=== PATIENT | male | born 1950 | race Caucasian/White ===

== ENCOUNTER 2018-05-30 15:47 | Inpatient (IN) | payer MEDICARE, OTHER ==
[~2018-05-30] VITALS: Ht 177.8 cm; Wt 127.0 kg
[~2018-05-30 15:47] MED LIST: ALLO100T PO; APIX2.5T PO; ASPI-611 PO; ATOR20TA PO; CARB15DR95 OP; CLOP75TA35 PO; CYCL-1 PO; FINA1TAB17 PO; HYDR4TAB55 PO; KETO5DRO75 OP; LEVO100T9 PO; LOSA25TA96 PO; METO25TA6 PO; MORP30TA60 PO; NITR0.4T51 SL; NITR1PAT28 TD; RANI300T7 PO; TERA1CAP4 PO; [UNRECOGNIZED DRUG - CODE] TOP; morphine ER 30mg tablet PO ONE
[2018-05-30] MEDS ORDERED: LORazepam 2 mg/ml vial ONE (16:07)
[2018-05-30 16:23] LABS: BASOPHILS % (AUTO) 0.6 % (0-1); EOSINOPHILS # (AUTO) 0.1 X10'3 (0-0.9); EOSINOPHILS % (AUTO) 1.2 % (0-6); HEMATOCRIT 31.7 % (42.0-52.0); HEMOGLOBIN 10.7 g/dl (14.0-17.9); LYMPHOCYTES # (AUTO) 0.9 X10'3 (1.1-4.8); LYMPHOCYTES % (AUTO) 15.1 % (21-51); MEAN CORPUSCULAR HGB CONC 33.9 % (33.0-36.5); MEAN CORPUSCULAR VOLUME 91.6 FL (78-98); MEAN PLATELET VOLUME 8.2 FL (7.4-10.4); MONOCYTES # (AUTO) 0.3 X10'3 (0-0.9); MONOCYTES % (AUTO) 6.1 % (2-12); NEUTROPHILS # (AUTO) 4.4 X10'3 (1.8-7.7); PLATELET COUNT 155 X10'3 (140-440); RED BLOOD COUNT 3.46 X10'6 (4.70-6.10); RED CELL DISTRIBUTION WIDTH 17.5 % (11.5-14.5); WHITE BLOOD COUNT 5.7 X10'3 (4.5-11.0)
[2018-05-30 16:33] LABS: PARTIAL THROMBOPLASTIN TIME 27 SECONDS (22-32); PROTHROMBIN TIME 10.2 SECONDS (9.0-12.0)
[2018-05-30] MEDS ORDERED: iohexol 350MG/ML 100ml bottle IV ONE (16:34)
[2018-05-30 16:38] LABS: ALANINE AMINOTRANSFERASE 23 U/L (12-78); ALBUMIN 3.9 G/DL (3.4-5.0); ALKALINE PHOSPHATASE 104 IU/L (46-116); ANION GAP 7 (8-16); ASPARTATE AMINO TRANSFERASE 38 U/L (10-37); BLOOD UREA NITROGEN 18 MG/DL (7-18); BUN/CREATININE RATIO 15.5 (5.4-32.0); CALCIUM 9.1 MG/DL (8.5-10.1); CHLORIDE 101 MMOL/L (99-107); CREATININE 1.16 MG/DL (0.60-1.10); GLUCOSE 108 MG/DL (70-104); POTASSIUM 4.5 MMOL/L (3.5-5.1); SODIUM 136 MMOL/L (135-145); TOTAL CARBON DIOXIDE 28.4 MMOL/L (24-32); TOTAL PROTEIN 7.8 G/DL (6.4-8.2); eGFR 63 ML/MIN
[2018-05-30 16:41] LABS: TROPONIN I < 0.04 NG/ML (0.0-0.05)
[2018-05-30] MEDS ORDERED: iohexol 350 MG/ML 50ML vial IV ONE (16:41)
[2018-05-30] MEDS ORDERED: fentaNYL/PF 50MCG/1 ML 2ML syringe IV ONE ×2 (16:55→19:25)
[2018-05-30 18:25] LABS: CLARITY,URINE Clear (Clear); COLOR,URINE Yellow (Yellow); GLUCOSE, URINE Negative (Neg); KETONES,URINE Negative (Neg); LEUKOCYTE ESTERASE ,URINE Negative (Neg); NITRITES, URINE Negative (Neg); OCCULT BLOOD,URINE Negative (Neg); PROTEIN,URINE Negative (Neg)
[2018-05-30 18:28] LABS: UA COLLECTION TYPE URINAL
[2018-05-30] MEDS ORDERED: bisacodyl 10mg suppository rectal RC PRN (19:50)
[2018-05-30] MEDS ORDERED: magnesium hydroxide 30ml (MOM) UD suspension PO PRN (19:50)
[2018-05-30] MEDS ORDERED: ASPI-1264 PO (19:58)
[2018-05-30] MEDS ORDERED: LEVO175T2 PO (19:58)
[2018-05-30] MEDS ORDERED: CLOP75TA33 PO (19:58)
[2018-05-30] MEDS: docusate sod 100mg capsule PO SCH (20:27)
[2018-05-30] MEDS: famotidine 20mg tablet PO SCH (20:27)
[2018-05-30] MEDS: heparin, porcine 5000 units/ml vial SQ SCH (20:28)
[2018-05-30 23:40] VITALS: BP 193/97
[2018-05-31] MEDS: terazosin 5mg capsule PO SCH ×2 (00:18→20:39)
[2018-05-31] MEDS: morphine ER 30mg tablet PO SCH ×4 (01:22→20:07)
[2018-05-31 02:31] VITALS: BP 143/83
[2018-05-31 05:16] LABS: BASOPHILS % (AUTO) 0.5 % (0-1); EOSINOPHILS # (AUTO) 0.1 X10'3 (0-0.9); EOSINOPHILS % (AUTO) 1.8 % (0-6); HEMATOCRIT 30.4 % (42.0-52.0); HEMOGLOBIN 10.2 g/dl (14.0-17.9); LYMPHOCYTES # (AUTO) 0.9 X10'3 (1.1-4.8); LYMPHOCYTES % (AUTO) 18.9 % (21-51); MEAN CORPUSCULAR HEMOGLOBIN 30.7 PG (27.0-31.0); MEAN CORPUSCULAR HGB CONC 33.6 % (33.0-36.5); MEAN CORPUSCULAR VOLUME 91.3 FL (78-98); MEAN PLATELET VOLUME 8.1 FL (7.4-10.4); MONOCYTES # (AUTO) 0.3 X10'3 (0-0.9); MONOCYTES % (AUTO) 6.9 % (2-12); NEUTROPHILS # (AUTO) 3.4 X10'3 (1.8-7.7); NEUTROPHILS % (AUTO) 71.9 % (42-75); PLATELET COUNT 150 X10'3 (140-440); RED BLOOD COUNT 3.33 X10'6 (4.70-6.10); RED CELL DISTRIBUTION WIDTH 17.5 % (11.5-14.5); WHITE BLOOD COUNT 4.7 X10'3 (4.5-11.0)
[2018-05-31 05:32] LABS: ALANINE AMINOTRANSFERASE 24 U/L (12-78); ALBUMIN 3.6 G/DL (3.4-5.0); ALKALINE PHOSPHATASE 98 IU/L (46-116); ANION GAP 7 (8-16); ASPARTATE AMINO TRANSFERASE 37 U/L (10-37); BILIRUBIN,TOTAL 0.9 MG/DL (0.1-1.0); BLOOD UREA NITROGEN 17 MG/DL (7-18); BUN/CREATININE RATIO 14.7 (5.4-32.0); CALCIUM 8.9 MG/DL (8.5-10.1); CHLORIDE 101 MMOL/L (99-107); CREATININE 1.16 MG/DL (0.60-1.10); GLUCOSE 109 MG/DL (70-104); POTASSIUM 4.3 MMOL/L (3.5-5.1); SODIUM 137 MMOL/L (135-145); TOTAL PROTEIN 7.3 G/DL (6.4-8.2); eGFR 63 ML/MIN
[2018-05-31 07:06] VITALS: BP 137/92
[2018-05-31] MEDS: aspirin 325mg tablet PO SCH (08:01)
[2018-05-31] MEDS: losartan 25mg tablet PO SCH (08:01)
[2018-05-31] MEDS: levoTHYROXINE 175mcg tablet PO SCH (08:01)
[2018-05-31] MEDS: heparin, porcine 5000 units/ml vial SQ SCH ×2 (08:01→20:07)
[2018-05-31] MEDS: docusate sod 100mg capsule PO SCH ×2 (08:01→20:07)
[2018-05-31] MEDS: clopidogrel 75mg tablet PO SCH (08:01)
[2018-05-31] MEDS: finasteride 5mg tablet PO SCH (08:01)
[2018-05-31] MEDS: metoprolol tartrate 25mg tablet PO SCH ×2 (08:01→20:07)
[2018-05-31] MEDS ORDERED: HYDR8TAB16 PO (10:53)
[2018-05-31] MEDS: HYDROmorphone 2mg tablet PO PRN ×2 (10:57→18:56)
[2018-05-31 11:57] VITALS: BP 139/71
[2018-05-31 18:00] VITALS: BP 138/66
[2018-05-31] MEDS: famotidine 20mg tablet PO SCH (20:40)
[2018-05-31 22:00] VITALS: BP 140/70
[2018-06-01] MEDS: morphine ER 30mg tablet PO SCH ×4 (02:00→20:29)
[2018-06-01 02:22] VITALS: BP 147/77
[2018-06-01] MEDS: HYDROmorphone 2mg tablet PO PRN ×3 (04:01→18:55)
[2018-06-01 05:40] LABS: BASOPHILS % (AUTO) 0.7 % (0-1); EOSINOPHILS # (AUTO) 0.1 X10'3 (0-0.9); EOSINOPHILS % (AUTO) 1.9 % (0-6); HEMATOCRIT 28.6 % (42.0-52.0); HEMOGLOBIN 9.6 g/dl (14.0-17.9); LYMPHOCYTES # (AUTO) 0.9 X10'3 (1.1-4.8); MEAN CORPUSCULAR HEMOGLOBIN 30.7 PG (27.0-31.0); MEAN CORPUSCULAR HGB CONC 33.7 % (33.0-36.5); MEAN CORPUSCULAR VOLUME 91.1 FL (78-98); MEAN PLATELET VOLUME 7.8 FL (7.4-10.4); MONOCYTES # (AUTO) 0.3 X10'3 (0-0.9); MONOCYTES % (AUTO) 7.1 % (2-12); NEUTROPHILS % (AUTO) 70.3 % (42-75); PLATELET COUNT 137 X10'3 (140-440); RED BLOOD COUNT 3.14 X10'6 (4.70-6.10); WHITE BLOOD COUNT 4.3 X10'3 (4.5-11.0)
[2018-06-01 05:58] LABS: ALANINE AMINOTRANSFERASE 24 U/L (12-78); ALBUMIN 3.4 G/DL (3.4-5.0); ALKALINE PHOSPHATASE 94 IU/L (46-116); ANION GAP 5 (8-16); ASPARTATE AMINO TRANSFERASE 38 U/L (10-37); BILIRUBIN,TOTAL 0.6 MG/DL (0.1-1.0); BLOOD UREA NITROGEN 16 MG/DL (7-18); CALCIUM 8.6 MG/DL (8.5-10.1); CHLORIDE 101 MMOL/L (99-107); CREATININE 1.07 MG/DL (0.60-1.10); GLUCOSE 106 MG/DL (70-104); POTASSIUM 4.4 MMOL/L (3.5-5.1); SODIUM 135 MMOL/L (135-145); TOTAL CARBON DIOXIDE 29.2 MMOL/L (24-32); TOTAL PROTEIN 6.8 G/DL (6.4-8.2); eGFR 69 ML/MIN
[2018-06-01 06:00] VITALS: BP 125/68
[2018-06-01] MEDS: clopidogrel 75mg tablet PO SCH (08:20)
[2018-06-01] MEDS: finasteride 5mg tablet PO SCH (08:20)
[2018-06-01] MEDS: docusate sod 100mg capsule PO SCH ×2 (08:20→20:29)
[2018-06-01] MEDS: levoTHYROXINE 175mcg tablet PO SCH (08:20)
[2018-06-01] MEDS: aspirin 325mg tablet PO SCH (08:20)
[2018-06-01] MEDS: losartan 25mg tablet PO SCH (08:21)
[2018-06-01] MEDS: metoprolol tartrate 25mg tablet PO SCH ×2 (08:21→20:29)
[2018-06-01] MEDS: heparin, porcine 5000 units/ml vial SQ SCH (08:21)
[2018-06-01 09:50] VITALS: BP 161/88
[2018-06-01 10:44] VITALS: BP 140/84
[2018-06-01] MEDS ORDERED: bisacodyl 10mg suppository rectal RC PRN (12:15)
[2018-06-01] MEDS ORDERED: nitroGLYCERIN 0.4mg SUBLingual tab SL PRN (12:25)
[2018-06-01] MEDS ORDERED: apixaban 5mg tablet PO SCH (12:30)
[2018-06-01 13:27] LABS: CHOL/HDL RATIO 4.8 (0.00-4.99); CHOLESTEROL 115 MG/DL (0-200); HDL CHOLESTEROL 24 MG/DL (35-60); LDL CHOLESTEROL 64 MG/DL (50-100); TRIGLYCERIDES 192 MG/DL (20-135)
[2018-06-01 18:00] VITALS: BP 131/77
[2018-06-01] MEDS: apixaban 5mg tablet PO SCH (20:29)
[2018-06-01] MEDS: terazosin 5mg capsule PO SCH (20:29)
[2018-06-01] MEDS: atorvastatin 20mg tablet PO SCH (20:29)
[2018-06-01] MEDS: famotidine 20mg tablet PO SCH (20:30)
[2018-06-01 22:00] VITALS: BP 175/96
[2018-06-01] MEDS ORDERED: proCHLORperazine 10 MG/2 ml inj IV PRN (22:50)
[2018-06-02] MEDS: morphine ER 30mg tablet PO SCH ×4 (01:53→20:26)
[2018-06-02] MEDS: HYDROmorphone 2mg tablet PO PRN ×4 (04:06→21:56)
[2018-06-02 06:00] VITALS: BP 114/65
[2018-06-02 06:55] LABS: BASOPHILS % (AUTO) 0.6 % (0-1); EOSINOPHILS # (AUTO) 0.1 X10'3 (0-0.9); EOSINOPHILS % (AUTO) 1.9 % (0-6); HEMOGLOBIN 11.2 g/dl (14.0-17.9); LYMPHOCYTES # (AUTO) 0.9 X10'3 (1.1-4.8); LYMPHOCYTES % (AUTO) 14.8 % (21-51); MEAN CORPUSCULAR HEMOGLOBIN 30.8 PG (27.0-31.0); MEAN CORPUSCULAR VOLUME 90.7 FL (78-98); MEAN PLATELET VOLUME 8.1 FL (7.4-10.4); MONOCYTES # (AUTO) 0.4 X10'3 (0-0.9); MONOCYTES % (AUTO) 7.3 % (2-12); NEUTROPHILS # (AUTO) 4.4 X10'3 (1.8-7.7); NEUTROPHILS % (AUTO) 75.4 % (42-75); PLATELET COUNT 150 X10'3 (140-440); RED BLOOD COUNT 3.64 X10'6 (4.70-6.10); RED CELL DISTRIBUTION WIDTH 17.1 % (11.5-14.5); WHITE BLOOD COUNT 5.8 X10'3 (4.5-11.0)
[2018-06-02 07:07] LABS: ALANINE AMINOTRANSFERASE 26 U/L (12-78); ALBUMIN 3.8 G/DL (3.4-5.0); ALKALINE PHOSPHATASE 103 IU/L (46-116); ANION GAP 4 (8-16); ASPARTATE AMINO TRANSFERASE 34 U/L (10-37); BILIRUBIN,TOTAL 0.8 MG/DL (0.1-1.0); BLOOD UREA NITROGEN 14 MG/DL (7-18); BUN/CREATININE RATIO 12.3 (5.4-32.0); CALCIUM 8.9 MG/DL (8.5-10.1); CHLORIDE 100 MMOL/L (99-107); CREATININE 1.14 MG/DL (0.60-1.10); GLUCOSE 98 MG/DL (70-104); SODIUM 134 MMOL/L (135-145); TOTAL CARBON DIOXIDE 29.8 MMOL/L (24-32); TOTAL PROTEIN 7.6 G/DL (6.4-8.2); eGFR 64 ML/MIN
[2018-06-02] MEDS: docusate sod 100mg capsule PO SCH ×2 (07:58→20:26)
[2018-06-02] MEDS: losartan 25mg tablet PO SCH (07:59)
[2018-06-02] MEDS: metoprolol tartrate 25mg tablet PO SCH (07:59)
[2018-06-02] MEDS: levoTHYROXINE 175mcg tablet PO SCH (07:59)
[2018-06-02] MEDS: apixaban 5mg tablet PO SCH ×2 (07:59→20:26)
[2018-06-02] MEDS: finasteride 5mg tablet PO SCH (07:59)
[2018-06-02] MEDS: clopidogrel 75mg tablet PO SCH (07:59)
[2018-06-02 10:00] VITALS: BP 173/70
[2018-06-02 12:12] LABS: HEMOGLOBIN A1C 5.2 % (4.5-6.2)
[2018-06-02 18:00] VITALS: BP 148/66
[2018-06-02] MEDS: terazosin 5mg capsule PO SCH (20:26)
[2018-06-02] MEDS: famotidine 20mg tablet PO SCH (20:26)
[2018-06-02] MEDS: atorvastatin 20mg tablet PO SCH (20:26)
[2018-06-02 22:00] VITALS: BP 154/78
[2018-06-03] MEDS: morphine ER 30mg tablet PO SCH ×3 (01:43→13:59)
[2018-06-03] MEDS: HYDROmorphone 2mg tablet PO PRN ×2 (04:02→10:40)
[2018-06-03 05:43] LABS: BASOPHILS % (AUTO) 0.7 % (0-1); EOSINOPHILS # (AUTO) 0.1 X10'3 (0-0.9); EOSINOPHILS % (AUTO) 2.4 % (0-6); HEMATOCRIT 29.9 % (42.0-52.0); LYMPHOCYTES # (AUTO) 0.8 X10'3 (1.1-4.8); MEAN CORPUSCULAR HEMOGLOBIN 30.6 PG (27.0-31.0); MEAN CORPUSCULAR HGB CONC 33.5 % (33.0-36.5); MEAN CORPUSCULAR VOLUME 91.6 FL (78-98); MEAN PLATELET VOLUME 8.7 FL (7.4-10.4); MONOCYTES # (AUTO) 0.3 X10'3 (0-0.9); MONOCYTES % (AUTO) 6.8 % (2-12); NEUTROPHILS # (AUTO) 3.3 X10'3 (1.8-7.7); NEUTROPHILS % (AUTO) 73.1 % (42-75); PLATELET COUNT 139 X10'3 (140-440); RED BLOOD COUNT 3.26 X10'6 (4.70-6.10); RED CELL DISTRIBUTION WIDTH 16.8 % (11.5-14.5); WHITE BLOOD COUNT 4.6 X10'3 (4.5-11.0)
[2018-06-03 06:00] VITALS: BP 140/72
[2018-06-03 06:07] LABS: ALANINE AMINOTRANSFERASE 22 U/L (12-78); ALBUMIN 3.4 G/DL (3.4-5.0); ALBUMIN/GLOBULIN RATIO 0.9 (1.1-1.5); ALKALINE PHOSPHATASE 100 IU/L (46-116); ANION GAP 4 (8-16); ASPARTATE AMINO TRANSFERASE 32 U/L (10-37); BILIRUBIN,TOTAL 0.6 MG/DL (0.1-1.0); BLOOD UREA NITROGEN 14 MG/DL (7-18); CALCIUM 8.6 MG/DL (8.5-10.1); CHLORIDE 101 MMOL/L (99-107); CREATININE 1.17 MG/DL (0.60-1.10); GLUCOSE 105 MG/DL (70-104); POTASSIUM 3.9 MMOL/L (3.5-5.1); SODIUM 136 MMOL/L (135-145); TOTAL CARBON DIOXIDE 30.8 MMOL/L (24-32); TOTAL PROTEIN 7.1 G/DL (6.4-8.2); eGFR 62 ML/MIN
[2018-06-03] MEDS ORDERED: levoTHYROXINE 100mcg tablet PO SCH (07:00)
[2018-06-03] MEDS: losartan 25mg tablet PO SCH (07:56)
[2018-06-03] MEDS: apixaban 5mg tablet PO SCH (07:56)
[2018-06-03] MEDS: docusate sod 100mg capsule PO SCH (07:56)
[2018-06-03] MEDS: clopidogrel 75mg tablet PO SCH (07:57)
[2018-06-03] MEDS: finasteride 5mg tablet PO SCH (07:57)
[2018-06-03 10:00] VITALS: BP 120/52
[2018-06-03] MEDS ORDERED: metoprolol succinate 25mg (24-HOUR) SR. Tablet PO SCH (14:25)
== END 2018-06-03 17:39 | disposition left against medical advice (07) | DRG 683 ==
LOC: ER 15:47 → ED HOLD 19:47 → EDBEDREQ 20:58 → ORTHO 4S 23:15
PROVIDERS: ADMIT Internal Medicine; ATTEND Family Medicine
PROC: B3251ZZ Computerized Tomography (CT Scan) of Bilateral Common Carotid Arteries using Low Osmolar Contrast (ICD-10-PCS; principal; 2018-05-30)
PROC: B32G1ZZ Computerized Tomography (CT Scan) of Bilateral Vertebral Arteries using Low Osmolar Contrast (ICD-10-PCS; 2018-05-30)
PROC: B3281ZZ Computerized Tomography (CT Scan) of Bilateral Internal Carotid Arteries using Low Osmolar Contrast (ICD-10-PCS; 2018-05-30)
PROC: B32T1ZZ Computerized Tomography (CT Scan) of Left Pulmonary Artery using Low Osmolar Contrast (ICD-10-PCS; 2018-05-30)
PROC: B3201ZZ Computerized Tomography (CT Scan) of Thoracic Aorta using Low Osmolar Contrast (ICD-10-PCS; 2018-05-30)
PROC: B32S1ZZ Computerized Tomography (CT Scan) of Right Pulmonary Artery using Low Osmolar Contrast (ICD-10-PCS; 2018-05-30)
PROC: 4A10X4Z Monitoring of Central Nervous Electrical Activity, External Approach (ICD-10-PCS; 2018-05-31)
DX: N17.9 Acute kidney failure, unspecified (principal); Z68.41 Body mass index [BMI] 40.0-44.9, adult; R47.01 Aphasia; F44.4 Conversion disorder with motor symptom or deficit; I49.9 Cardiac arrhythmia, unspecified; E03.9 Hypothyroidism, unspecified; F41.1 Generalized anxiety disorder; E66.01 Morbid (severe) obesity due to excess calories; Z53.21 Procedure and treatment not carried out due to patient leaving prior to being seen by health care provider; F40.240 Claustrophobia; F43.10 Post-traumatic stress disorder, unspecified; M19.90 Unspecified osteoarthritis, unspecified site; N18.9 Chronic kidney disease, unspecified; I12.9 Hypertensive chronic kidney disease with stage 1 through stage 4 chronic kidney disease, or unspecified chronic kidney disease; R47.9 Unspecified speech disturbances; E16.2 Hypoglycemia, unspecified; I48.0 Paroxysmal atrial fibrillation; M54.9 Dorsalgia, unspecified; G89.29 Other chronic pain; Z76.5 Malingerer [conscious simulation]; I25.2 Old myocardial infarction; Z79.01 Long term (current) use of anticoagulants; Z79.899 Other long term (current) drug therapy; Z79.82 Long term (current) use of aspirin; Z86.73 Personal history of transient ischemic attack (TIA), and cerebral infarction without residual deficits; Z87.891 Personal history of nicotine dependence
CPT/HCPCS: 36415; 70450; 70496; 70498; 71045; 71275; 74174; 80053; 80061; 81003; 82948; 83036; 84443; 84484; 84550; 85025; 85610; 85730; 87070; 93005; 95816; 96374; 96376; 97116; 97161; 97530; 99285; J0780; J1644; J2060; J3010; J7030; Q9967

== ENCOUNTER 2019-03-04 14:58 | Emergency (ER) | payer MEDICARE, OTHER ==
[~2019-03-04] VITALS: Ht 180.3 cm; Wt 129.1 kg
[~2019-03-04 14:58] MED LIST changes: +ASPI-1264 PO; -ASPI-611 PO; +CLOP75TA33 PO; -CLOP75TA35 PO; +HYDR8TAB16 PO; -LEVO100T9 PO; +LEVO175T2 PO; -morphine ER 30mg tablet PO ONE
[2019-03-04] MEDS ORDERED: normal saline 1000ml 1,000 ML IV ONE (15:44)
[2019-03-04] MEDS ORDERED: meperidine/PF 50mg/ml syringe IV ONE ×2 (15:50→17:20)
[2019-03-04] MEDS ORDERED: ketorolac tromethamine 15mg/ml inj. IV ONE (15:50)
[2019-03-04 16:06] LABS: BASOPHILS % (AUTO) 0.9 % (0-1); EOSINOPHILS # (AUTO) 0.1 X10'3 (0-0.9); EOSINOPHILS % (AUTO) 1.2 % (0-6); HEMATOCRIT 35.4 % (42.0-52.0); HEMOGLOBIN 11.9 g/dl (14.0-17.9); LYMPHOCYTES # (AUTO) 0.7 X10'3 (1.1-4.8); LYMPHOCYTES % (AUTO) 13.3 % (21-51); MEAN CORPUSCULAR HGB CONC 33.5 g/dL (33.0-36.5); MEAN CORPUSCULAR VOLUME 92.6 FL (78-98); MEAN PLATELET VOLUME 8.9 FL (7.4-10.4); MONOCYTES # (AUTO) 0.4 X10'3 (0-0.9); MONOCYTES % (AUTO) 7.3 % (2-12); NEUTROPHILS # (AUTO) 3.8 X10'3 (1.8-7.7); NEUTROPHILS % (AUTO) 77.3 % (42-75); PLATELET COUNT 167 X10'3 (140-440); RED BLOOD COUNT 3.82 X10'6 (4.70-6.10); RED CELL DISTRIBUTION WIDTH 17.6 % (11.5-14.5); WHITE BLOOD COUNT 4.9 X10'3 (4.5-11.0)
[2019-03-04 16:22] LABS: ALANINE AMINOTRANSFERASE 46 U/L (12-78); ALKALINE PHOSPHATASE 108 IU/L (46-116); ANION GAP 6 (8-16); ASPARTATE AMINO TRANSFERASE 45 U/L (10-37); BILIRUBIN,TOTAL 0.6 MG/DL (0.1-1.0); BLOOD UREA NITROGEN 12 MG/DL (7-18); BUN/CREATININE RATIO 11.4 (5.4-32.0); CALCIUM 9.3 MG/DL (8.5-10.1); CHLORIDE 102 MMOL/L (99-107); CREATININE 1.05 MG/DL (0.60-1.10); GLUCOSE 132 MG/DL (70-104); LIPASE 96 U/L (73-393); POTASSIUM 4.4 MMOL/L (3.5-5.1); SODIUM 138 MMOL/L (135-145); TOTAL CARBON DIOXIDE 29.9 MMOL/L (24-32); eGFR 70 ML/MIN
[2019-03-04 16:43] LABS: PARTIAL THROMBOPLASTIN TIME 31 SECONDS (22-32)
[2019-03-04 17:09] LABS: CLARITY,URINE CLEAR (Clear); COLOR,URINE YELLOW (Yellow); GLUCOSE, URINE NEGATIVE (Neg); KETONES,URINE NEGATIVE (Neg); LEUKOCYTE ESTERASE ,URINE NEGATIVE (Neg); NITRITES, URINE NEGATIVE (Neg); OCCULT BLOOD,URINE MODERATE (Neg); PH,URINE 7.5 (4.8-8.0); PROTEIN,URINE TRACE mg/dl (Neg)
[2019-03-04 17:14] LABS: UA COLLECTION TYPE URINAL; WBC,URINE NONE SEEN /HPF (0-4)
[2019-03-04 17:15] LABS: BACTERIA,URINE NONE SEEN /HPF (Neg); MUCUS STRANDS NONE SEEN /LPF (Neg); SQUAMOUS EPITHELIAL CELL,UR FEW /LPF (FEW)
[2019-03-04] MEDS ORDERED: ondansetron/PF 4mg/2ml inj IM ONE (17:30)
[2019-03-04] MEDS ORDERED: HYDR-4353 PO (19:13)
[2019-03-04] MEDS ORDERED: FLO0.4C PO (19:13)
[2019-03-04] MEDS ORDERED: HYDROmorphone 2mg tablet PO ONE (19:15)
[2019-03-04 19:22] VITALS: BP 147/90
== END 2019-03-04 19:41 | disposition home or self-care (01) ==
LOC: ER 14:58
DX: N23 Unspecified renal colic (principal); I48.91 Unspecified atrial fibrillation; I25.2 Old myocardial infarction; G89.29 Other chronic pain; Z86.73 Personal history of transient ischemic attack (TIA), and cerebral infarction without residual deficits; Z98.61 Coronary angioplasty status; Z79.82 Long term (current) use of aspirin; Z79.899 Other long term (current) drug therapy
CPT/HCPCS: 36415; 74018; 74176; 80053; 81001; 83690; 83735; 85025; 85610; 85730; 96372; 96374; 96375; 96376; 99284; J1885; J2175; J2405; J7030

== ENCOUNTER 2019-07-10 17:41 | Inpatient (IN) | payer MEDICARE, OTHER ==
[~2019-07-10] VITALS: Ht 180.3 cm; Wt 136.4 kg
--- NOTE | 2019-07-10 10:58 | NUR ---
called for new onset of aphasia. Upon my arrival Dr Briones was at bedside. AT [address] Briones pt was his normal self. Currently he is exhibiting dysarthria. 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 Admission in 2017 and 2018 for stroke work up is noted. Pt is currently on full ASA and Plavix. Pt able to state name and age, month of year, feels irritated with questions. Observed moving upper ext equally, Both lower ext with 4+ edema. Pt taken to CT 2215 via lio.
[2019-07-10] MEDS ORDERED: aspirin 81mg tab.chew PO ONE (18:05)
[2019-07-10] MEDS ORDERED: ondansetron/PF 4mg/2ml inj IV ONE (18:15)
[2019-07-10] MEDS ORDERED: morphine 4 MG/ML inj SYRINge IV ONE (18:15)
[2019-07-10 18:23] LABS: BASOPHILS % (AUTO) 0.8 % (0-1); EOSINOPHILS # (AUTO) 0.1 X10'3 (0-0.9); EOSINOPHILS % (AUTO) 1.3 % (0-6); HEMATOCRIT 29.8 % (42.0-52.0); HEMOGLOBIN 9.8 g/dl (14.0-17.9); LYMPHOCYTES # (AUTO) 0.5 X10'3 (1.1-4.8); LYMPHOCYTES % (AUTO) 9.7 % (21-51); MEAN CORPUSCULAR HEMOGLOBIN 31.4 PG (27.0-31.0); MEAN CORPUSCULAR HGB CONC 33.1 g/dL (33.0-36.5); MEAN PLATELET VOLUME 8.5 FL (7.4-10.4); MONOCYTES # (AUTO) 0.3 X10'3 (0-0.9); MONOCYTES % (AUTO) 6.8 % (2-12); NEUTROPHILS % (AUTO) 81.4 % (42-75); PLATELET COUNT 133 X10'3 (140-440); RED BLOOD COUNT 3.13 X10'6 (4.70-6.10); RED CELL DISTRIBUTION WIDTH 18.3 % (11.5-14.5); WHITE BLOOD COUNT 4.9 X10'3 (4.5-11.0)
[2019-07-10 18:34] LABS: ALANINE AMINOTRANSFERASE 32 U/L (12-78); ALBUMIN 3.4 G/DL (3.4-5.0); ALBUMIN/GLOBULIN RATIO 0.9 (1.1-1.5); ALKALINE PHOSPHATASE 87 IU/L (46-116); ANION GAP 5 (8-16); ASPARTATE AMINO TRANSFERASE 43 U/L (10-37); BILIRUBIN,TOTAL 0.6 MG/DL (0.1-1.0); BLOOD UREA NITROGEN 14 MG/DL (7-18); BUN/CREATININE RATIO 12.2 (5.4-32.0); CALCIUM 8.6 MG/DL (8.5-10.1); CHLORIDE 103 MMOL/L (99-107); CREATININE 1.15 MG/DL (0.60-1.10); GLUCOSE 133 MG/DL (70-104); POTASSIUM 4.1 MMOL/L (3.5-5.1); SODIUM 139 MMOL/L (135-145); TOTAL CARBON DIOXIDE 30.8 MMOL/L (24-32); TOTAL PROTEIN 7.2 G/DL (6.4-8.2); eGFR 63 ML/MIN
[2019-07-10 18:41] LABS: MAGNESIUM 2.1 MG/DL (1.5-2.4)
[2019-07-10] MEDS ORDERED: iohexol 350MG/ML 100ml bottle IV ONE (19:06)
[2019-07-10] MEDS ORDERED: azithromycin/NS 500mg/250ml 250 ML IV ONE (20:05)
[2019-07-10] MEDS ORDERED: CefTRIAXone/D5W-Rocephin 1gm 50 ML IV ONE (20:05)
[2019-07-10] MEDS ORDERED: UNABLE TO OBTAIN (20:24)
--- NOTE | 2019-07-10 20:25 | NUR ---
Contacted [facility] pharmacy for recent home medications which reports only wellbutrin, norco, flomax, and narcan. He states his daughter Doris has a list of his meds who was contacted but does not have the list available and states she will call when she has access to the list. I asked if he only takes 4 medications and she states that he takes many more than that. I will wait for an accurate medication list from Doris prior to making changes to the home medication list.
--- NOTE | 2019-07-10 21:07 | NUR ---
pt informed to get in the middle of bed otherwise you will fall ,pt refused to get safe in bed ,pt sitting up on the side of the bed ,sleeps in btw ,on 2l of o2 spo2 96%.pt verbalize pain in btw and then sleep again,respiration non labored,iv abx infusing as per md orders vitals stable .
[2019-07-10] MEDS ORDERED: ondansetron/PF 4mg/2ml inj IV PRN (21:15)
[2019-07-10] MEDS ORDERED: acetaminophen 325mg tablet PO PRN (21:15)
[2019-07-10] MEDS ORDERED: mag hydrox/Alum hydrox/simeth 30ml oral suspension PO PRN (21:15)
[2019-07-10] MEDS ORDERED: magnesium hydroxide 30ml (MOM) UD suspension PO PRN (21:15)
[2019-07-10 21:38] LABS: HEMOGLOBIN A1C 5.3 % (4.5-6.2)
[2019-07-10] MEDS ORDERED: PANT40TA4 PO (22:10)
[2019-07-10] MEDS ORDERED: AMLO2.5T2 PO (22:10)
--- NOTE | 2019-07-10 22:20 | NUR ---
Patient in room PCU 3017. I have received report from Vinicio GOMEZ and had the opportunity to ask questions and assume patient care.
--- NOTE | 2019-07-10 22:30 | NUR ---
WENT TO PT ROOM TO GO THROUGH BELONGINGING LIST .PT GRABBED HIS BELONGING TO HIMSELF AND REFUSED TO GO THROUGH BELONGING ,NURSE MELISSA AT BEDSIDE MELISSA TAKING PT TO THE FLOOR ON MONITOR,PT REFUSED TO GIVE HIS MEDICATION BOTTLES INFORMED THAT HE IS NOT ALLOWED TO KEEP MEDICATIONWITH HIM BUT HE REFUSED ,MELISSA SAID HE IS TAKING PT UPSTAIR AND LET THE ASSIGNED NURSE KNOW ABOUT THE SITUATION.
[2019-07-10] MEDS ORDERED: cyclobenzaprine 10mg tablet PO PRN (22:40)
[2019-07-10] MEDS ORDERED: nitroGLYCERIN 0.4mg SUBLingual tab SL PRN (22:40)
--- NOTE | 2019-07-10 22:40 | NUR ---
Patient arrived to the PCU unit at this time. Per ER they had attempted to take his bag of home medications but the patient then became very agitated and refused to give them up. Patient was still brought to the floor and when he got here he still seemed very upset. He was however seeming to have some difficulty expressing himself. He was having trouble getting his words out and just seemed very frustrated. When he was able to get some words out his speech was slurred and unclear. Since there was no mention of any deficits like this in report from the ER, the ER nurse was contacted at this time to see if this was a new finding. She confirmed that when he was down there he was not having any difficulty speaking and was able to answer questions clearly and appropriately. Therefore a stroke alert was called.
--- NOTE | 2019-07-10 23:00 | NUR ---
Dr. Briones contacted about change in patient condition while in elevator on the way to PCU. He states he will go upstairs to evaluate the patient.
--- NOTE | 2019-07-10 23:10 | NUR ---
Dr. Briones and stroke nurse Nidia up to see patient. Dr. Briones confirmed that when he has seen the patient in the ER about an hour prior he was speaking normally without issues so this was a change. He had however started to be able getting words out a little better than when he initially got up to the PCU floor but speech still impaired. Patient taken down for a STAT CT.
--- NOTE | 2019-07-10 23:20 | NUR ---
Patient was not very compliant with the whole neuro assessment but he was however able to raise his arms bilaterally, squeeze hands bilaterally, able to smile with no facial droop so there were no motor deficits observed. However since CT did show some suspicion of right MCA distribution infarct the tele medicine neurologist was consulted. In summary he advised against thrombolytics because his symptoms at this point were not consistent with an acute stroke.
--- NOTE | 2019-07-10 23:53 | NUR ---
Pt refusing to allow me to complete my assessment and exam. He wants to "go to bed." Currently talking in full sentences. Limited mobility and uses a W/C mostly or 2 canes. Spoke with spouse briefly who is at bedside.
[2019-07-11] VITALS (14 sets, daily range): BP systolic 117–145; BP diastolic 58–74
--- NOTE | 2019-07-11 01:00 | NUR ---
SOC tele neuro exam per DR MUSTAFA after pt consented. After completion, Dr MUSTAFA will call Dr Briones. Pt clearly improving, speech is now fluent, NIH is 0.
--- NOTE | 2019-07-11 02:00 | NUR ---
Patient speaking without any difficulty anymore. He is very tired and says he just wants to go to sleep and would like us to please leave him alone. He allowed us to do a partial 2 RN skin assessment but would not let us look at his bottom or genital area. He also refused to allow us to dart him at this time.
--- NOTE | 2019-07-11 02:03 | NUR ---
Although the neurologist recommended a CTA of the head at this time to get more conclusive findings then the CT Dr. Briones did not order it since the patient had already received dye and he did not want him to get more. He did order an MRI for the morning.
--- NOTE | 2019-07-11 05:54 | NUR ---
Orientee documentation: I have reviewed and agree with all interventions, assessments performed and documented by Talita GOMEZ. Orientee Medication Administration: For this medication-pass time frame, all medication were reviewed, dispensed, administered and documented per hospital policy by Talita GOMEZ.
--- NOTE | 2019-07-11 06:18 | NUR ---
Problems reprioritized. Patient report given, questions answered & plan of care reviewed with Manuel GOMEZ and Alicia GOMEZ.
--- NOTE | 2019-07-11 06:26 | NUR ---
Patient in room PCU 3011. I have received report from Sally and had the opportunity to ask questions and assume patient care.
[2019-07-11 06:27] LABS: EOSINOPHILS # (AUTO) 0.1 X10'3 (0-0.9); EOSINOPHILS % (AUTO) 2.1 % (0-6); HEMATOCRIT 29.3 % (42.0-52.0); HEMOGLOBIN 9.9 g/dl (14.0-17.9); LYMPHOCYTES # (AUTO) 0.6 X10'3 (1.1-4.8); LYMPHOCYTES % (AUTO) 13.2 % (21-51); MEAN CORPUSCULAR HEMOGLOBIN 31.7 PG (27.0-31.0); MEAN CORPUSCULAR HGB CONC 33.7 g/dL (33.0-36.5); MEAN PLATELET VOLUME 8.4 FL (7.4-10.4); MONOCYTES # (AUTO) 0.3 X10'3 (0-0.9); MONOCYTES % (AUTO) 7.9 % (2-12); NEUTROPHILS # (AUTO) 3.2 X10'3 (1.8-7.7); NEUTROPHILS % (AUTO) 75.8 % (42-75); PLATELET COUNT 127 X10'3 (140-440); RED BLOOD COUNT 3.11 X10'6 (4.70-6.10); RED CELL DISTRIBUTION WIDTH 18.8 % (11.5-14.5); WHITE BLOOD COUNT 4.2 X10'3 (4.5-11.0)
--- NOTE | 2019-07-11 06:30 | NUR ---
Patient in room PCU 3017. I have received report from Sally Sanon RN and had the opportunity to ask questions and assume patient care.
[2019-07-11 06:38] LABS: ALANINE AMINOTRANSFERASE 29 U/L (12-78); ALBUMIN 3.3 G/DL (3.4-5.0); ALBUMIN/GLOBULIN RATIO 0.9 (1.1-1.5); ALKALINE PHOSPHATASE 81 IU/L (46-116); ANION GAP 4 (8-16); ASPARTATE AMINO TRANSFERASE 39 U/L (10-37); BILIRUBIN,TOTAL 0.6 MG/DL (0.1-1.0); BLOOD UREA NITROGEN 13 MG/DL (7-18); BUN/CREATININE RATIO 10.7 (5.4-32.0); CALCIUM 8.7 MG/DL (8.5-10.1); CHLORIDE 104 MMOL/L (99-107); CREATININE 1.21 MG/DL (0.60-1.10); GLUCOSE 105 MG/DL (70-104); POTASSIUM 4.5 MMOL/L (3.5-5.1); SODIUM 140 MMOL/L (135-145); TOTAL CARBON DIOXIDE 31.7 MMOL/L (24-32); TOTAL PROTEIN 6.8 G/DL (6.4-8.2); eGFR 59 ML/MIN
[2019-07-11 06:41] LABS: CHOL/HDL RATIO 3.3 (0.00-4.99); CHOLESTEROL 96 MG/DL (0-200); HDL CHOLESTEROL 29 MG/DL (35-60); LDL CHOLESTEROL 52 MG/DL (50-100); TRIGLYCERIDES 78 MG/DL (20-135)
[2019-07-11] MEDS ORDERED: amLODIPine 2.5mg tablet PO SCH (08:00)
[2019-07-11] MEDS ORDERED: heparin, porcine 5000 units/ml vial SQ SCH (08:00)
[2019-07-11] MEDS ORDERED: pantoprazole 40mg Tablet.DR PO SCH (08:00)
[2019-07-11] MEDS ORDERED: aspirin 325mg tablet PO SCH (08:00)
[2019-07-11] MEDS: clopidogrel 75mg tablet PO SCH (08:50)
[2019-07-11] MEDS: levoTHYROXINE 175mcg tablet PO SCH (08:50)
[2019-07-11] MEDS: buprenorphine/naloxone 2-0.5mg sublingual tablet SL SCH ×4 (08:51→22:31)
[2019-07-11] MEDS: allopurinol 100mg tablet PO SCH (08:51)
[2019-07-11] MEDS: losartan 25mg tablet PO SCH (08:51)
[2019-07-11] MEDS: metoprolol tartrate 25mg tablet PO SCH ×2 (08:54→19:54)
--- NOTE | 2019-07-11 09:39 | NUR ---
PAGER ID: [phone] MESSAGE: RE: OleaVal. Room: [facility]. Pt Complaining of non radiating chest pain. Getting EKG and vitals now. Pt continues to sleep on and off. -Manuel [facility] #[id number]
[2019-07-11 10:00] LABS: ANISOCYTOSIS 2+; PLATELET ESTIMATE DECREASED
[2019-07-11 10:01] LABS: LARGE PLATELETS FEW
[2019-07-11 10:06] LABS: ABG BASE EXCESS 2.4 mmol/L (-2.0-3.0); ABG HCO3 29.8 mmol/L (22.0-26.0); ABG OXYGEN SATURATION 96.3 % (95-98); ABG PCO2 (T) 61.9 mmHg (35.0-45.0); ABG PH (T) 7.301 (7.350-7.450); ABG PO2 (T) 95.5 mmHg (83-108); ALLEN'S TEST Positive; FCOHb 0.7 % (0.5-1.5); FLOW 4 L/min; FMetHb 0.1 % (0.3-1.12); FO2Hb 95.5 % (94-100); RESPIRATORY RATE (OBSERVED) 16 b/min; TOTAL HEMOGLOBIN 10.7 G/dl (14.0-17.9)
[2019-07-11] MEDS: finasteride 5mg tablet PO SCH (10:12)
[2019-07-11] MEDS ORDERED: AMLO10TA PO (11:13)
[2019-07-11] MEDS ORDERED: ASPI-611 PO (11:18)
[2019-07-11] MEDS ORDERED: ISOS120T13 PO (11:25)
[2019-07-11] MEDS ORDERED: TRIA15OI9 TOP (11:30)
[2019-07-11] MEDS ORDERED: HYDR25TA4 PO (11:40)
--- NOTE | 2019-07-11 12:19 | NUR ---
Pt now on BIPAP after ABG reveals elevated PCO2. Arousable to light touch. removed mask to eval and speak with pt. He is alert and speaking in full sentences. He has no aphasia. He claims to feel "numb over the right face, and arm to light touch, says he feels pressure when touched. Yesterday the claimed to be numb over the left arm and right leg. Oriented to month, age and year. motor intact, no weakness noted. Unable to undergo MRI due to large size. Plavix is ordered and ASA. Will continue to monitor. despite CT findings, assessment and symptoms do not match.
[2019-07-11] MEDS: morphine 2 MG/ML inj. syringe IV PRN ×2 (13:32→19:44)
[2019-07-11 15:06] LABS: ABG BASE EXCESS 3.4 mmol/L (-2.0-3.0); ABG HCO3 30.7 mmol/L (22.0-26.0); ABG OXYGEN SATURATION 96.4 % (95-98); ABG PCO2 (T) 61.9 mmHg (35.0-45.0); ABG PH (T) 7.313 (7.350-7.450); ABG PO2 (T) 94.5 mmHg (83-108); ALLEN'S TEST Positive; FCOHb 0.5 % (0.5-1.5); FMetHb 0.1 % (0.3-1.12); FO2Hb 95.8 % (94-100); RESPIRATORY RATE 14 b/min; TOTAL HEMOGLOBIN 10.2 G/dl (14.0-17.9)
--- NOTE | 2019-07-11 15:53 | NUR ---
PAGER ID: [phone] MESSAGE: RE: Lefty Neal. Room: [facility]. New ABG resulted on Pt. RT has adjusted Bipap settings to blow off more Co2. -Manuel U #[id number]
--- NOTE | 2019-07-11 17:12 | NUR ---
Page sent to Dr. Pak PAGER ID: [phone] MESSAGE: [id number] Lefty Neal, Patient complaining of pain after 2 mg of Morphine given, can we increase to 4 mg? Alicia STUBBS
--- NOTE | 2019-07-11 17:56 | NUR ---
Followed up with patient regarding pain management. Patient stated his back and lower extremities are still painful but that it's at a tolerable level. Patient declined wanting any pain medication at this time and reports feeling better since eating dinner.
--- NOTE | 2019-07-11 18:00 | NUR ---
I have reviewed Belen GOMEZ (orientee) charting and I agree.
--- NOTE | 2019-07-11 18:15 | NUR ---
Patient in room PCU 3017. I have received report from Manuel GOMEZ and Alicia GOMEZ and had the opportunity to ask questions and assume patient care. Patient resting on Bi-pap, vitals are stable at this time, will continue to monitor closely.
--- NOTE | 2019-07-11 18:25 | NUR ---
Problems reprioritized. Patient report given, questions answered & plan of care reviewed with Dominique GOMEZ.
--- NOTE | 2019-07-11 18:30 | NUR ---
Problems reprioritized. Patient report given, questions answered & plan of care reviewed with Dominique.
[2019-07-11] MEDS: azithromycin 250mg tablet PO SCH (19:54)
[2019-07-11] MEDS: pantoprazole 40mg Tablet.DR PO SCH (19:55)
[2019-07-11] MEDS: CefTRIAXone/D5W-Rocephin 1gm 50 ML IV SCH (19:55)
[2019-07-11] MEDS: famotidine 20mg tablet PO SCH (22:31)
[2019-07-11] MEDS: terazosin 5mg capsule PO SCH (22:32)
[2019-07-11] MEDS: atorvastatin 20mg tablet PO SCH (22:32)
--- NOTE | 2019-07-11 22:55 | NUR ---
Took patient off Bi-Pap to eat a sandwich, he told me he doesn't think he's going to live much longer.
[2019-07-12] VITALS (8 sets, daily range): BP systolic 112–142; BP diastolic 52–67
[2019-07-12] MEDS: morphine 2 MG/ML inj. syringe IV PRN ×5 (01:20→23:50)
[2019-07-12 05:57] LABS: BASOPHILS % (AUTO) 0.7 % (0-1); EOSINOPHILS # (AUTO) 0.1 X10'3 (0-0.9); EOSINOPHILS % (AUTO) 1.5 % (0-6); HEMATOCRIT 28.6 % (42.0-52.0); HEMOGLOBIN 9.4 g/dl (14.0-17.9); LYMPHOCYTES # (AUTO) 0.7 X10'3 (1.1-4.8); MEAN CORPUSCULAR HEMOGLOBIN 31.7 PG (27.0-31.0); MEAN CORPUSCULAR HGB CONC 32.8 g/dL (33.0-36.5); MEAN CORPUSCULAR VOLUME 96.7 FL (78-98); MEAN PLATELET VOLUME 9.3 FL (7.4-10.4); MONOCYTES # (AUTO) 0.3 X10'3 (0-0.9); MONOCYTES % (AUTO) 7.3 % (2-12); NEUTROPHILS # (AUTO) 3.4 X10'3 (1.8-7.7); NEUTROPHILS % (AUTO) 75.5 % (42-75); PLATELET COUNT 118 X10'3 (140-440); RED BLOOD COUNT 2.96 X10'6 (4.70-6.10); RED CELL DISTRIBUTION WIDTH 18.2 % (11.5-14.5); WHITE BLOOD COUNT 4.5 X10'3 (4.5-11.0)
--- NOTE | 2019-07-12 06:24 | NUR ---
Patient in room PCU 3013. I have received report from Dominique and had the opportunity to ask questions and assume patient care.
--- NOTE | 2019-07-12 06:25 | NUR ---
Problems reprioritized. Patient report given, questions answered & plan of care reviewed with Dominique GOMEZ.
--- NOTE | 2019-07-12 06:30 | NUR ---
Problems reprioritized. Patient report given, questions answered & plan of care reviewed with Manuel GOMEZ and Alicia GOMEZ.
[2019-07-12 06:42] LABS: ALANINE AMINOTRANSFERASE 25 U/L (12-78); ALBUMIN 3.1 G/DL (3.4-5.0); ALBUMIN/GLOBULIN RATIO 0.9 (1.1-1.5); ALKALINE PHOSPHATASE 79 IU/L (46-116); ANION GAP 6 (8-16); ASPARTATE AMINO TRANSFERASE 34 U/L (10-37); BILIRUBIN,TOTAL 0.5 MG/DL (0.1-1.0); BLOOD UREA NITROGEN 17 MG/DL (7-18); BUN/CREATININE RATIO 13.9 (5.4-32.0); CALCIUM 8.1 MG/DL (8.5-10.1); CHLORIDE 103 MMOL/L (99-107); CREATININE 1.22 MG/DL (0.60-1.10); GLUCOSE 101 MG/DL (70-104); POTASSIUM 4.4 MMOL/L (3.5-5.1); SODIUM 139 MMOL/L (135-145); TOTAL CARBON DIOXIDE 29.8 MMOL/L (24-32); TOTAL PROTEIN 6.7 G/DL (6.4-8.2); eGFR 59 ML/MIN
[2019-07-12] MEDS ORDERED: isosorbide mononitrate 30mg tab.SR.24H PO SCH (08:00)
[2019-07-12] MEDS ORDERED: magnesium oxide 400mg tablet PO ONE (08:15)
[2019-07-12] MEDS: finasteride 5mg tablet PO SCH (08:17)
[2019-07-12] MEDS: allopurinol 100mg tablet PO SCH (08:18)
[2019-07-12] MEDS: losartan 25mg tablet PO SCH (08:18)
[2019-07-12] MEDS: pantoprazole 40mg Tablet.DR PO SCH ×2 (08:18→20:51)
[2019-07-12] MEDS: clopidogrel 75mg tablet PO SCH (08:18)
[2019-07-12] MEDS: metoprolol tartrate 25mg tablet PO SCH ×2 (08:19→20:51)
[2019-07-12] MEDS: levoTHYROXINE 175mcg tablet PO SCH (08:20)
[2019-07-12] MEDS: buprenorphine/naloxone 2-0.5mg sublingual tablet SL SCH ×4 (08:20→20:39)
[2019-07-12] MEDS: aspirin 81mg tablet.DR PO SCH (08:21)
[2019-07-12] MEDS: amLODIPine 5mg tablet PO SCH (08:22)
[2019-07-12] MEDS: multivitamins, therapeutics tablet PO SCH (08:33)
--- NOTE | 2019-07-12 11:53 | NUR ---
I have reviewed and agree with all medications administered and interventions performed by [facility] Student Erasmo Mcgregor Addendum: 07/12/19 at 1154 by Maria Luisa Worrell RT Amended: Links added.
--- NOTE | 2019-07-12 18:00 | NUR ---
I have reviewed Belen GOMEZ (orientee) charting and I agree with it.
--- NOTE | 2019-07-12 18:00 | NUR ---
Problems reprioritized. Patient report given, questions answered & plan of care reviewed with Celi GOMEZ and Caro GOMEZ.
--- NOTE | 2019-07-12 18:14 | NUR ---
Problems reprioritized. Patient report given, questions answered & plan of care reviewed with
[2019-07-12] MEDS: atorvastatin 20mg tablet PO SCH (20:37)
[2019-07-12] MEDS: azithromycin 250mg tablet PO SCH (20:39)
[2019-07-12] MEDS: famotidine 20mg tablet PO SCH (20:39)
[2019-07-12] MEDS: magnesium oxide 400mg tablet PO SCH (20:40)
[2019-07-12] MEDS: terazosin 5mg capsule PO SCH (20:40)
[2019-07-12] MEDS: furosemide 20 MG/2 ML vial IV SCH (20:40)
[2019-07-12] MEDS: CefTRIAXone/D5W-Rocephin 1gm 50 ML IV SCH (20:40)
[2019-07-13 02:00] VITALS: BP 113/73
[2019-07-13] MEDS: morphine 2 MG/ML inj. syringe IV PRN (04:03)
--- NOTE | 2019-07-13 05:58 | NUR ---
Problems reprioritized. Patient report given, questions answered & plan of care reviewed with PATRICIA Jackson.
--- NOTE | 2019-07-13 05:59 | NUR ---
Orientee Medication Administration: For this medication-pass time frame, all medication were reviewed, dispensed, administered and documented per hospital policy by Caro GOMEZ. Orientee documentation: I have reviewed all interventions, assessments performed and documented by Caro GOMEZ.
[2019-07-13 06:00] VITALS: BP 131/70
[2019-07-13 06:11] LABS: BASOPHILS % (AUTO) 0.7 % (0-1); EOSINOPHILS # (AUTO) 0.1 X10'3 (0-0.9); EOSINOPHILS % (AUTO) 1.3 % (0-6); HEMATOCRIT 29.3 % (42.0-52.0); HEMOGLOBIN 9.8 g/dl (14.0-17.9); LYMPHOCYTES # (AUTO) 0.6 X10'3 (1.1-4.8); LYMPHOCYTES % (AUTO) 12.5 % (21-51); MEAN CORPUSCULAR HEMOGLOBIN 32.2 PG (27.0-31.0); MEAN CORPUSCULAR HGB CONC 33.5 g/dL (33.0-36.5); MEAN CORPUSCULAR VOLUME 96.2 FL (78-98); MEAN PLATELET VOLUME 9.1 FL (7.4-10.4); MONOCYTES # (AUTO) 0.4 X10'3 (0-0.9); MONOCYTES % (AUTO) 7.6 % (2-12); NEUTROPHILS # (AUTO) 3.7 X10'3 (1.8-7.7); NEUTROPHILS % (AUTO) 77.9 % (42-75); PLATELET COUNT 115 X10'3 (140-440); RED BLOOD COUNT 3.05 X10'6 (4.70-6.10); RED CELL DISTRIBUTION WIDTH 17.8 % (11.5-14.5); WHITE BLOOD COUNT 4.8 X10'3 (4.5-11.0)
--- NOTE | 2019-07-13 06:15 | NUR ---
Patient in room PCU 3017. I have received report from Celi GOMEZ and Belinda GOMEZ and had the opportunity to ask questions and assume patient care.
--- NOTE | 2019-07-13 06:15 | NUR ---
Problems reprioritized. Patient report given, questions answered & plan of care reviewed with Manuel Gore RN.
[2019-07-13 06:55] LABS: ALANINE AMINOTRANSFERASE 34 U/L (12-78); ALBUMIN 3.3 G/DL (3.4-5.0); ALBUMIN/GLOBULIN RATIO 0.9 (1.1-1.5); ALKALINE PHOSPHATASE 82 IU/L (46-116); ANION GAP 5 (8-16); ASPARTATE AMINO TRANSFERASE 30 U/L (10-37); BILIRUBIN,TOTAL 0.6 MG/DL (0.1-1.0); BLOOD UREA NITROGEN 16 MG/DL (7-18); BUN/CREATININE RATIO 12.8 (5.4-32.0); CALCIUM 7.9 MG/DL (8.5-10.1); CHLORIDE 101 MMOL/L (99-107); CREATININE 1.25 MG/DL (0.60-1.10); GLUCOSE 123 MG/DL (70-104); POTASSIUM 4.1 MMOL/L (3.5-5.1); SODIUM 140 MMOL/L (135-145); TOTAL CARBON DIOXIDE 34.1 MMOL/L (24-32); eGFR 57 ML/MIN
[2019-07-13 07:33] LABS: ROULEAUX 1+; TOTAL CELLS COUNTED 100; TOXIC GRANULATION 1+
[2019-07-13 07:34] LABS: ANISOCYTOSIS 1+; PLATELET ESTIMATE DECREASED; POLYCHROMASIA 1+
[2019-07-13] MEDS: furosemide 20 MG/2 ML vial IV SCH (07:49)
[2019-07-13] MEDS: amLODIPine 5mg tablet PO SCH (07:50)
[2019-07-13] MEDS: magnesium oxide 400mg tablet PO SCH (07:50)
[2019-07-13] MEDS: aspirin 81mg tablet.DR PO SCH (07:50)
[2019-07-13] MEDS: clopidogrel 75mg tablet PO SCH (07:50)
[2019-07-13] MEDS: finasteride 5mg tablet PO SCH (07:50)
[2019-07-13] MEDS: multivitamins, therapeutics tablet PO SCH (07:50)
[2019-07-13] MEDS: metoprolol tartrate 25mg tablet PO SCH (07:50)
[2019-07-13] MEDS: allopurinol 100mg tablet PO SCH (07:51)
[2019-07-13] MEDS: buprenorphine/naloxone 2-0.5mg sublingual tablet SL SCH (07:51)
[2019-07-13] MEDS: losartan 25mg tablet PO SCH (07:51)
[2019-07-13] MEDS: pantoprazole 40mg Tablet.DR PO SCH (07:51)
[2019-07-13] MEDS: levoTHYROXINE 175mcg tablet PO SCH (07:51)
[2019-07-13] MEDS ORDERED: LEVO750T21 PO (08:18)
[2019-07-13] MEDS ORDERED: FURO-150 PO (08:18)
[2019-07-13 11:00] VITALS: BP 122/64
--- NOTE | 2019-07-13 12:50 | NUR ---
Pt DC'd home with daughter. IV removed, canula intact. Tele-box removed and returned to tele-tech. Pt Alert and oriented and vitals stable upon DC. DC paperwork gone over with Pt and daughter. Allowed Pt and daughter to ask questions concerning DC and then answered them. New prescription script given to Pt to fill at pharmacy of choice. [facility] Pt's belongings gathered and sent with Pt. Pt wheeled down to lobby via wheelchair by nurse. Pt left with daughter in private vehicle for home.
== END 2019-07-13 12:50 | disposition home or self-care (01) | DRG 291 ==
LOC: ER 17:42 → PCU 3S 22:59
PROVIDERS: ADMIT Internal Medicine; ATTEND Internal Medicine
PROC: B32T1ZZ Computerized Tomography (CT Scan) of Left Pulmonary Artery using Low Osmolar Contrast (ICD-10-PCS; 2019-07-10)
PROC: B3201ZZ Computerized Tomography (CT Scan) of Thoracic Aorta using Low Osmolar Contrast (ICD-10-PCS; 2019-07-10)
PROC: B32S1ZZ Computerized Tomography (CT Scan) of Right Pulmonary Artery using Low Osmolar Contrast (ICD-10-PCS; 2019-07-10)
PROC: 5A09357 Assistance with Respiratory Ventilation, Less than 24 Consecutive Hours, Continuous Positive Airway Pressure (ICD-10-PCS; principal; 2019-07-11)
PROC: 5A09357 Assistance with Respiratory Ventilation, Less than 24 Consecutive Hours, Continuous Positive Airway Pressure (ICD-10-PCS; 2019-07-12)
DX: I50.813 Acute on chronic right heart failure (principal); J18.9 Pneumonia, unspecified organism; Z68.41 Body mass index [BMI] 40.0-44.9, adult; J96.11 Chronic respiratory failure with hypoxia; J96.12 Chronic respiratory failure with hypercapnia; E66.01 Morbid (severe) obesity due to excess calories; E03.9 Hypothyroidism, unspecified; E78.5 Hyperlipidemia, unspecified; I27.81 Cor pulmonale (chronic); G47.30 Sleep apnea, unspecified; I25.10 Atherosclerotic heart disease of native coronary artery without angina pectoris; I48.91 Unspecified atrial fibrillation; G89.29 Other chronic pain; D64.9 Anemia, unspecified; M19.90 Unspecified osteoarthritis, unspecified site; M54.9 Dorsalgia, unspecified; I25.2 Old myocardial infarction; Z79.82 Long term (current) use of aspirin; Z79.899 Other long term (current) drug therapy; Z79.02 Long term (current) use of antithrombotics/antiplatelets; Z86.711 Personal history of pulmonary embolism; Z86.73 Personal history of transient ischemic attack (TIA), and cerebral infarction without residual deficits; Z87.442 Personal history of urinary calculi; Z95.5 Presence of coronary angioplasty implant and graft; Z95.1 Presence of aortocoronary bypass graft
CPT/HCPCS: 36415; 36600; 70450; 71045; 71275; 80053; 80061; 82803; 82948; 83036; 83605; 83735; 83880; 84145; 84443; 84484; 85018; 85025; 87040; 87081; 93005; 93306; 94660; 94760; 96365; 96366; 96368; 96375; 97110; 97116; 97161; 99285; G0378; J0456; J0696; J1940; J2270; J2405; Q9967

== ENCOUNTER 2020-01-07 10:40 | Day surgery (SDC) | payer MEDICARE ==
[2020-01-04 15:18] LABS: BASOPHILS # (AUTO) 0.1 X10'3 (0-0.2); BASOPHILS % (AUTO) 1.1 % (0-1); EOSINOPHILS # (AUTO) 0.1 X10'3 (0-0.9); EOSINOPHILS % (AUTO) 1.2 % (0-6); LYMPHOCYTES # (AUTO) 0.9 X10'3 (1.1-4.8); LYMPHOCYTES % (AUTO) 12.9 % (21-51); MEAN CORPUSCULAR HEMOGLOBIN 31.7 PG (27.0-31.0); MEAN CORPUSCULAR HGB CONC 34.1 g/dL (33.0-36.5); MEAN CORPUSCULAR VOLUME 92.9 FL (78-98); MONOCYTES # (AUTO) 0.5 X10'3 (0-0.9); MONOCYTES % (AUTO) 6.7 % (2-12); NEUTROPHILS # (AUTO) 5.7 X10'3 (1.8-7.7); NEUTROPHILS % (AUTO) 78.1 % (42-75); PRE OP HEMATOCRIT 35.4 % (42.0-52.0); PRE OP HEMOGLOBIN 12.1 g/dL (14.0-17.9); PRE OP PLATELET COUNT 172 X10'3 (140-440); RED BLOOD COUNT 3.81 X10'6 (4.70-6.10); RED CELL DISTRIBUTION WIDTH 17.7 % (11.5-14.5)
[2020-01-04 15:25] LABS: PRE OP PROTIME 10.1 SECONDS (9.0-12.0)
[2020-01-04 15:32] LABS: ALBUMIN 3.8 G/DL (3.4-5.0); ALKALINE PHOSPHATASE 84 IU/L (46-116); BLOOD UREA NITROGEN 15 MG/DL (7-18); BUN/CREATININE RATIO 13.3 (5.4-32.0); CHLORIDE 103 MMOL/L (99-107); CREATININE 1.13 MG/DL (0.60-1.10); MAGNESIUM 2.2 MG/DL (1.5-2.4); PRE OP ALT 22 U/L (30-65); PRE OP ANION GAP 4 (8-16); PRE OP AST 30 U/L (10-37); PRE OP BILIRUB, TOTAL 0.6 MG/DL (0.0-1.0); PRE OP GLUCOSE 93 MG/DL (70-104); PRE OP POTASSIUM 4.2 MMOL/L (3.4-5.1); PRE OP SODIUM 140 MMOL/L (135-145); TOTAL PROTEIN 7.7 G/DL (6.4-8.2); eGFR 64 ML/MIN
[2020-01-07] VITALS (19 sets, daily range): BP systolic 108–196; BP diastolic 55–121
[~2020-01-07] VITALS: Ht 180.3 cm; Wt 282.0 kg
[~2020-01-07 10:40] MED LIST changes: -APIX2.5T PO; +APIX5TAB3 PO; -ASPI-1264 PO; +ASPI-611 PO; +BUPR2TAB11 PO; -CARB15DR95 OP; +CLOP75TA15 PO; -CYCL-1 PO; -HYDR4TAB55 PO; -HYDR8TAB16 PO; +ISOS120T13 PO; -KETO5DRO75 OP; -LEVO175T2 PO; +LEVO200T8 PO; -MORP30TA60 PO; +PANT40TA4 PO; +POTA10TA36 PO; +RANI300C PO; -RANI300T7 PO; +TORS20TA3 PO; +[UNRECOGNIZED DRUG - CODE] TD; -[UNRECOGNIZED DRUG - CODE] TOP; +diphenhydrAMINE 25mg capsule PO PRN; +famotidine 20mg tablet PO ONE
[2020-01-07] MEDS ORDERED: LIDOcaine/PRILOcaine 5gm cream TP ONE (11:15)
[2020-01-07] MEDS: normal saline 1,000 ML IV SCH ×2 (11:29→15:31)
[2020-01-07] MEDS ORDERED: morphine 4 MG/ML inj SYRINge IV ONE (12:15)
--- NOTE | 2020-01-07 12:33 | NUR ---
VIKAS GOMEZ FORM PMO ANALYST MADE AWARE THAT PATIENTS H&P IS OUT OF DATE.
--- NOTE | 2020-01-07 12:34 | NUR ---
[ATEL MADE AWARE THAT PATIENT HAS NOT TAKEN BETA NOHEMI IN 3 WEEKS
[2020-01-07] MEDS ORDERED: LIDOcaine 1% (10mg/ml)w/preservative injection 20ml MDV ONE (12:47)
[2020-01-07] MEDS ORDERED: verapamil 2.5 mg/ml inj IV ONE (12:47)
[2020-01-07] MEDS ORDERED: nitroGLYCERIN-Tridil 50MG/D5W 250 ML IV ONE (12:48)
[2020-01-07] MEDS ORDERED: iohexol 350 MG/1 ML 200ml bottle ONE (12:48)
[2020-01-07] MEDS ORDERED: iohexol 350 MG/ML 50ML vial IV ONE (12:48)
[2020-01-07] MEDS ORDERED: heparin 1,000unit/ml 10ml vial 10 ML ONE ×2 (12:48→14:31)
[2020-01-07] MEDS ORDERED: ondansetron/PF 4mg/2ml inj ONE ×2 (13:18→14:33)
[2020-01-07] MEDS ORDERED: sevoflurane 250ml liquid IH ONE (13:18)
[2020-01-07] MEDS ORDERED: MIDAZolam 5mg/5ml vial ONE (14:08)
[2020-01-07] MEDS ORDERED: propofol inj 20 ML IV ONE (14:33)
[2020-01-07] MEDS ORDERED: LIDOcaine 2% (20mg/ml) 5ml vial ONE (14:33)
[2020-01-07] MEDS ORDERED: dexamethasone sod phosphate 4mg/ml inj. ONE (14:33)
--- NOTE | 2020-01-07 15:09 | NUR ---
Received from OR via SUDHAKAR, accompanied by Anesthesiologist DR CHEN and report given by Anesthesiologist. PT DROWSY, FEM-STOP TO RIGHT GROIN SETTING 84MMHG, NO SWELLING,OOZING OR HEMATOMA PRESENT, PT HYPERTENSIVE, MEDICATIONS ORDERED AND GIVEN W/GOOD RESULTS, PT C/O BACK/NECK PAIN, STATES IS CHRONIC AND DIFFICULT TO LIE ON HIS BACK, PAIN MEDICATIONS GIVEN, PAIN IMPROVING. Addendum: 01/07/20 at 1607 by Harper Lopez RN Amended: Links added.
[2020-01-07] MEDS ORDERED: normal saline 1000ml 1,000 ML IV SCH ×2 (15:14→17:25)
[2020-01-07] MEDS ORDERED: meperidine/PF 25mg/ml syringe IV PRN ×2 (15:15)
[2020-01-07] MEDS ORDERED: proCHLORperazine 10 MG/2 ml inj IV PRN (15:15)
[2020-01-07] MEDS ORDERED: labetalol 20mg/4ml (5mg/ml) syringe IV PRN (15:15)
[2020-01-07] MEDS ORDERED: hydrALAZINE 20mg/ml inj. IV PRN (15:15)
[2020-01-07] MEDS ORDERED: acetaminophen 1,000mg/100ml IV 100 ML IV PRN (15:15)
[2020-01-07] MEDS ORDERED: morphine 2 MG/ML inj. syringe IV PRN (15:15)
[2020-01-07] MEDS ORDERED: ondansetron/PF 4mg/2ml inj IV PRN (15:15)
[2020-01-07] MEDS: meperidine/PF 25mg/ml syringe IV PRN ×3 (15:27→15:54)
[2020-01-07] MEDS: morphine 4 MG/ML inj SYRINge IV PRN ×2 (16:25→16:50)
--- NOTE | 2020-01-07 17:05 | NUR ---
Received report from Harper GOMEZ. Pt transfered from the Pas unit via lio. All pt belongings with pt.
--- NOTE | 2020-01-07 17:09 | NUR ---
Report called to receiving nurse. Transferred via GURNEY TO SHORT STAY, 2 BAGS OF Belongings SENT W/PT TO SHORT STAY ROOM 28, RECEIVING RN AT BEDSIDE TO RECEIVE PT, FEM-STOP IN PLACE, SITE REMAINS SOFT, CDI. PTS PAIN MODERATE. Special Issues communicated to receiving nurse. YES. Addendum: 01/07/20 at 1745 by Harper Lopez RN Amended: Links added.
[2020-01-07] MEDS: morphine 2 MG/ML inj. syringe IV PRN ×2 (17:39→19:41)
--- NOTE | 2020-01-07 17:40 | NUR ---
Pt complained of pain. MD notified and new orders received.
[2020-01-07] MEDS ORDERED: HYDROcodone/acetaminophen 10/325mg tab PO ONE (18:25)
--- NOTE | 2020-01-07 18:36 | NUR ---
Pt complained of unresolved pain. MD notified with new orders received.
== END 2020-01-07 20:05 | disposition home or self-care (01) ==
LOC: PAS 10:40
PROVIDERS: ATTEND Internal Medicine Cardiovascular Disease
DX: R07.9 Chest pain, unspecified (principal); T82.855A Stenosis of coronary artery stent, initial encounter; I25.10 Atherosclerotic heart disease of native coronary artery without angina pectoris; J44.9 Chronic obstructive pulmonary disease, unspecified; I13.0 Hypertensive heart and chronic kidney disease with heart failure and stage 1 through stage 4 chronic kidney disease, or unspecified chronic kidney disease; N18.9 Chronic kidney disease, unspecified; I50.9 Heart failure, unspecified; K21.9 Gastro-esophageal reflux disease without esophagitis; G89.29 Other chronic pain; E66.9 Obesity, unspecified; Z68.45 Body mass index [BMI] 70 or greater, adult; G47.33 Obstructive sleep apnea (adult) (pediatric); Z86.73 Personal history of transient ischemic attack (TIA), and cerebral infarction without residual deficits; Z79.899 Other long term (current) drug therapy; Z87.891 Personal history of nicotine dependence; Z95.1 Presence of aortocoronary bypass graft; Y83.8 Other surgical procedures as the cause of abnormal reaction of the patient, or of later complication, without mention of misadventure at the time of the procedure; Y92.89 Other specified places as the place of occurrence of the external cause
CPT/HCPCS: 36415; 80053; 82948; 83735; 85025; 85610; 85730; 92920; 93005; 93459; C1725; C1769; C1894; J0131; J1100; J1644; J2001; J2175; J2250; J2270; J2405; J2704; J7030; Q0163; Q9967; A4618; C1751; C1760; J3490

== ENCOUNTER 2020-01-10 02:49 | Observation (INO) | payer MEDICARE, OTHER ==
[~2020-01-10] VITALS: Ht 180.3 cm; Wt 128.2 kg
[~2020-01-10 02:49] MED LIST changes: -diphenhydrAMINE 25mg capsule PO PRN; -famotidine 20mg tablet PO ONE
[2020-01-10] MEDS ORDERED: LORazepam 2 mg/ml vial IV ONE (02:50)
[2020-01-10 03:12] LABS: BASOPHILS % (AUTO) 0.9 % (0-1); EOSINOPHILS # (AUTO) 0.1 X10'3 (0-0.9); HEMATOCRIT 25.3 % (42.0-52.0); HEMOGLOBIN 8.9 g/dl (14.0-17.9); LYMPHOCYTES # (AUTO) 0.7 X10'3 (1.1-4.8); LYMPHOCYTES % (AUTO) 14.4 % (21-51); MEAN CORPUSCULAR HEMOGLOBIN 32.7 PG (27.0-31.0); MEAN CORPUSCULAR VOLUME 93.4 FL (78-98); MEAN PLATELET VOLUME 8.4 FL (7.4-10.4); MONOCYTES # (AUTO) 0.3 X10'3 (0-0.9); MONOCYTES % (AUTO) 6.1 % (2-12); NEUTROPHILS # (AUTO) 3.8 X10'3 (1.8-7.7); NEUTROPHILS % (AUTO) 76.6 % (42-75); PLATELET COUNT 123 X10'3 (140-440); RED BLOOD COUNT 2.71 X10'6 (4.70-6.10); RED CELL DISTRIBUTION WIDTH 18.3 % (11.5-14.5)
[2020-01-10] MEDS ORDERED: nitroGLYCERIN 0.4mg/hour patch TD ONE (03:20)
[2020-01-10 03:25] LABS: ALANINE AMINOTRANSFERASE 26 U/L (12-78); ALBUMIN 3.5 G/DL (3.4-5.0); ALBUMIN/GLOBULIN RATIO 1.1 (1.1-1.5); ALKALINE PHOSPHATASE 73 IU/L (46-116); ANION GAP 7 (8-16); ASPARTATE AMINO TRANSFERASE 33 U/L (10-37); BILIRUBIN,TOTAL 0.5 MG/DL (0.1-1.0); BLOOD UREA NITROGEN 17 MG/DL (7-18); BUN/CREATININE RATIO 13.2 (5.4-32.0); CALCIUM 8.5 MG/DL (8.5-10.1); CHLORIDE 104 MMOL/L (99-107); CREATININE 1.29 MG/DL (0.60-1.10); GLUCOSE 168 MG/DL (70-104); SODIUM 141 MMOL/L (135-145); TOTAL CARBON DIOXIDE 30.2 MMOL/L (24-32); TOTAL PROTEIN 6.8 G/DL (6.4-8.2); eGFR 55 ML/MIN
[2020-01-10 03:33] LABS: MAGNESIUM 2.1 MG/DL (1.5-2.4); TROPONIN I 0.05 NG/ML (0.0-0.05)
--- NOTE | 2020-01-10 03:37 | NUR ---
PT HAS A NITRO PATCH ON RIGHT ARM. HE PLACED IT AT 1700 YESTERDAY.
[2020-01-10] MEDS ORDERED: HYDROcodone/acetaminophen 10/325mg tab PO ONE (03:50)
[2020-01-10 04:19] LABS: TOTAL CELLS COUNTED 100
[2020-01-10 04:20] LABS: ANISOCYTOSIS 2+; PLATELET ESTIMATE DECREASED
--- NOTE | 2020-01-10 06:31 | NUR ---
Doris (Patient's Daughter) - Will roll picker patient when discharged, call [phone].
[2020-01-10] MEDS ORDERED: AMLO10TA PO (06:56)
[2020-01-10] MEDS ORDERED: magnesium Cl slow-release 64mg tablet PO PRN (07:10)
[2020-01-10] MEDS ORDERED: morphine 2 MG/ML inj. syringe IV PRN (07:10)
[2020-01-10] MEDS ORDERED: ondansetron/PF 4mg/2ml inj IV PRN (07:10)
[2020-01-10] MEDS ORDERED: magnesium 2GM in 50ml NS 50 ML IV PRN (07:10)
[2020-01-10] MEDS ORDERED: magnesium hydroxide 30ml (MOM) UD suspension PO PRN (07:10)
[2020-01-10] MEDS ORDERED: acetaminophen 325mg tablet PO PRN ×2 (07:10)
[2020-01-10] MEDS ORDERED: potassium CL 10mEq/100ml bag 100 ML IV PRN ×2 (07:10)
[2020-01-10] MEDS ORDERED: magnesium 4gm in 100ml NS 100 ML IV PRN (07:10)
[2020-01-10] MEDS ORDERED: mag hydrox/Alum hydrox/simeth 30ml oral suspension PO PRN (07:10)
[2020-01-10] MEDS ORDERED: potassium Cl 20 mEq SR tablet PO PRN ×2 (07:10)
[2020-01-10] MEDS: nitroGLYCERIN 0.4mg SUBLingual tab SL PRN ×4 (07:31→15:58)
[2020-01-10] MEDS: famotidine 20mg tablet PO SCH (07:32)
[2020-01-10] MEDS: clopidogrel 75mg tablet PO SCH (07:32)
[2020-01-10] MEDS: metoprolol tartrate 25mg tablet PO SCH ×2 (07:33→19:28)
[2020-01-10] MEDS: potassium chloride 10mEq ER tablet PO SCH (07:33)
[2020-01-10] MEDS: amLODIPine 5mg tablet PO SCH (07:33)
[2020-01-10] MEDS: pantoprazole 40mg Tablet.DR PO SCH ×2 (07:33→19:28)
[2020-01-10] MEDS: morphine 2 MG/ML inj. syringe IV PRN ×4 (07:34→23:53)
[2020-01-10] MEDS: aspirin 81mg tablet.DR PO SCH (07:50)
[2020-01-10] MEDS: allopurinol 100mg tablet PO SCH (08:00)
[2020-01-10] MEDS: K and/or MAG REPLACEMENT MC SCH ×2 (08:00→20:00)
[2020-01-10] MEDS: finasteride 5mg tablet PO SCH (08:00)
[2020-01-10] MEDS: CALCITRIOL TOP SCH (08:00)
[2020-01-10 08:16] LABS: PARTIAL THROMBOPLASTIN TIME 25 SECONDS (22-32)
[2020-01-10 08:24] LABS: HEMOGLOBIN A1C 5.3 % (4.5-6.2)
[2020-01-10] MEDS: levoTHYROXINE 175mcg tablet PO SCH (08:32)
[2020-01-10] MEDS: isosorbide mononitrate 30mg tab.SR.24H PO SCH (08:32)
[2020-01-10] MEDS: losartan 25mg tablet PO SCH (08:32)
[2020-01-10 09:45] VITALS: BP 119/74
[2020-01-10 11:00] VITALS: BP 88/50
--- NOTE | 2020-01-10 15:34 | NUR ---
PAGER ID: [phone] MESSAGE: [id number] Lefty Neal: VANESSA troponins are still climbing, most recent troponin is 0.43. Thanks Cici [phone]
--- NOTE | 2020-01-10 15:34 | NUR ---
Patient in room PCU 3018 admitted from ED. I have received report from Prasanth GOMEZ and had the opportunity to ask questions and assume patient care.
[2020-01-10 15:48] VITALS: BP 90/40
--- NOTE | 2020-01-10 16:40 | NUR ---
sister dropped off patient's belongings that include clothing deodorant and a spray bottle
--- NOTE | 2020-01-10 18:15 | NUR ---
Patient in room PCU 3018. I have received report from PATRICIA Crocker and had the opportunity to ask questions and assume patient care.
--- NOTE | 2020-01-10 18:16 | NUR ---
Problems reprioritized. Patient report given, questions answered & plan of care reviewed with Caro GOMEZ.
[2020-01-10 18:30] VITALS: BP 108/61
[2020-01-10] MEDS ORDERED: atorvastatin 20mg tablet PO SCH (21:00)
[2020-01-10] MEDS ORDERED: Terazosin 1mg capsule PO SCH (21:00)
[2020-01-10 22:00] VITALS: BP 119/65
[2020-01-11 02:30] VITALS: BP 106/63
[2020-01-11 06:00] VITALS: BP 106/55
--- NOTE | 2020-01-11 06:17 | NUR ---
Problems reprioritized. Patient report given, questions answered & plan of care reviewed with PATRICIA Crocker.
[2020-01-11 06:23] LABS: BASOPHILS % (AUTO) 0.7 % (0-1); EOSINOPHILS # (AUTO) 0.1 X10'3 (0-0.9); EOSINOPHILS % (AUTO) 2.7 % (0-6); HEMATOCRIT 25.4 % (42.0-52.0); HEMOGLOBIN 8.7 g/dl (14.0-17.9); LYMPHOCYTES # (AUTO) 0.8 X10'3 (1.1-4.8); LYMPHOCYTES % (AUTO) 14.5 % (21-51); MEAN CORPUSCULAR HEMOGLOBIN 32.4 PG (27.0-31.0); MEAN CORPUSCULAR HGB CONC 34.3 g/dL (33.0-36.5); MEAN CORPUSCULAR VOLUME 94.6 FL (78-98); MEAN PLATELET VOLUME 9.1 FL (7.4-10.4); MONOCYTES # (AUTO) 0.3 X10'3 (0-0.9); MONOCYTES % (AUTO) 5.4 % (2-12); NEUTROPHILS # (AUTO) 4.2 X10'3 (1.8-7.7); NEUTROPHILS % (AUTO) 76.7 % (42-75); PLATELET COUNT 136 X10'3 (140-440); RED BLOOD COUNT 2.68 X10'6 (4.70-6.10); RED CELL DISTRIBUTION WIDTH 17.9 % (11.5-14.5); WHITE BLOOD COUNT 5.5 X10'3 (4.5-11.0)
--- NOTE | 2020-01-11 06:30 | NUR ---
Patient in room PCU 3018. I have received report from Caro GOMEZ and had the opportunity to ask questions and assume patient care.
[2020-01-11 06:52] LABS: % IRON SATURATION 26 % (11-46); IRON 89 UG/DL (53-167); TOTAL IRON BINDING CAPACITY 338 UG/DL (259-388)
[2020-01-11 06:54] LABS: ALANINE AMINOTRANSFERASE 30 U/L (12-78); ALBUMIN 3.5 G/DL (3.4-5.0); ALKALINE PHOSPHATASE 74 IU/L (46-116); ANION GAP 4 (8-16); ASPARTATE AMINO TRANSFERASE 34 U/L (10-37); BILIRUBIN,TOTAL 0.9 MG/DL (0.1-1.0); BLOOD UREA NITROGEN 19 MG/DL (7-18); BUN/CREATININE RATIO 17.1 (5.4-32.0); CALCIUM 8.7 MG/DL (8.5-10.1); CHLORIDE 103 MMOL/L (99-107); CHOL/HDL RATIO 4.7 (0.00-4.99); CHOLESTEROL 140 MG/DL (0-200); CREATININE 1.11 MG/DL (0.60-1.10); FERRITIN 74 NG/ML (26-388); GLUCOSE 121 MG/DL (70-104); HDL CHOLESTEROL 30 MG/DL (35-60); LDL CHOLESTEROL 81 MG/DL (50-100); MAGNESIUM 2.2 MG/DL (1.5-2.4); POTASSIUM 4.6 MMOL/L (3.5-5.1); SODIUM 139 MMOL/L (135-145); TOTAL CARBON DIOXIDE 32.4 MMOL/L (24-32); TRIGLYCERIDES 168 MG/DL (20-135); eGFR 65 ML/MIN
[2020-01-11] MEDS: CALCITRIOL TOP SCH (08:00)
[2020-01-11] MEDS: K and/or MAG REPLACEMENT MC SCH (08:00)
[2020-01-11] MEDS: levoTHYROXINE 175mcg tablet PO SCH (08:17)
[2020-01-11] MEDS: amLODIPine 5mg tablet PO SCH (08:18)
[2020-01-11] MEDS: aspirin 81mg tablet.DR PO SCH (08:18)
[2020-01-11] MEDS: isosorbide mononitrate 30mg tab.SR.24H PO SCH (08:18)
[2020-01-11] MEDS: allopurinol 100mg tablet PO SCH (08:18)
[2020-01-11] MEDS: metoprolol tartrate 25mg tablet PO SCH (08:18)
[2020-01-11] MEDS: clopidogrel 75mg tablet PO SCH (08:19)
[2020-01-11] MEDS: losartan 25mg tablet PO SCH (08:19)
[2020-01-11] MEDS: famotidine 20mg tablet PO SCH (08:19)
[2020-01-11] MEDS: pantoprazole 40mg Tablet.DR PO SCH (08:19)
[2020-01-11] MEDS: potassium chloride 10mEq ER tablet PO SCH (08:19)
[2020-01-11] MEDS: finasteride 5mg tablet PO SCH (08:20)
[2020-01-11] MEDS: morphine 2 MG/ML inj. syringe IV PRN (08:24)
[2020-01-11 11:00] VITALS: BP 121/41
--- NOTE | 2020-01-11 13:12 | NUR ---
pt is stable for discharge per md orders, discharge instructions reviewed w/ pt and all questions answered, no new med prescriptions, tele monitor dc'ed and returned, piv dc'ed and clean dry dressing in place, pt discharges to home @ 1300, wheeled down to lobby by hospital staff to daughter in private vehicle, pt had left his slippers in his room and is bagged in a pt's belonging bag in the nursing station.
== END 2020-01-11 12:57 | disposition home or self-care (01) ==
LOC: ER 02:50 → PCU 3S 10:35
PROVIDERS: ADMIT Internal Medicine; ATTEND Internal Medicine
DX: I25.110 Atherosclerotic heart disease of native coronary artery with unstable angina pectoris (principal); I10 Essential (primary) hypertension; E78.5 Hyperlipidemia, unspecified; E03.9 Hypothyroidism, unspecified; G89.4 Chronic pain syndrome; M10.9 Gout, unspecified; I25.2 Old myocardial infarction; I48.91 Unspecified atrial fibrillation; J44.0 Chronic obstructive pulmonary disease with (acute) lower respiratory infection; N40.0 Benign prostatic hyperplasia without lower urinary tract symptoms; Z86.73 Personal history of transient ischemic attack (TIA), and cerebral infarction without residual deficits; Z87.442 Personal history of urinary calculi; Z95.1 Presence of aortocoronary bypass graft; Z95.5 Presence of coronary angioplasty implant and graft; Z79.890 Hormone replacement therapy; Z79.891 Long term (current) use of opiate analgesic; Z79.899 Other long term (current) drug therapy
CPT/HCPCS: 36415; 71045; 80053; 80061; 82607; 82728; 83036; 83540; 83550; 83735; 83880; 84484; 85025; 85610; 85730; 87081; 93005; 96374; 96375; 96376; 99285; G0378; J2060; J2270

== ENCOUNTER 2020-01-12 15:45 | Inpatient (IN) | payer OTHER ==
[~2020-01-12] VITALS: Ht 180.3 cm; Wt 128.2 kg
[~2020-01-12 15:45] MED LIST changes: +AMLO10TA PO; -APIX5TAB3 PO; -CLOP75TA15 PO; -TORS20TA3 PO
[2020-01-12 16:15] LABS: BASOPHILS % (AUTO) 0.5 % (0-1); EOSINOPHILS # (AUTO) 0.1 X10'3 (0-0.9); EOSINOPHILS % (AUTO) 1.1 % (0-6); HEMATOCRIT 26.1 % (42.0-52.0); HEMOGLOBIN 8.8 g/dl (14.0-17.9); LYMPHOCYTES # (AUTO) 0.6 X10'3 (1.1-4.8); LYMPHOCYTES % (AUTO) 10.7 % (21-51); MEAN CORPUSCULAR HEMOGLOBIN 32.5 PG (27.0-31.0); MEAN CORPUSCULAR HGB CONC 33.8 g/dL (33.0-36.5); MEAN PLATELET VOLUME 8.6 FL (7.4-10.4); MONOCYTES # (AUTO) 0.3 X10'3 (0-0.9); MONOCYTES % (AUTO) 5.5 % (2-12); NEUTROPHILS % (AUTO) 82.2 % (42-75); PLATELET COUNT 135 X10'3 (140-440); RED BLOOD COUNT 2.72 X10'6 (4.70-6.10); RED CELL DISTRIBUTION WIDTH 18.1 % (11.5-14.5); WHITE BLOOD COUNT 6.1 X10'3 (4.5-11.0)
[2020-01-12] MEDS ORDERED: morphine 4 MG/ML inj SYRINge IV ONE ×3 (16:15→22:45)
[2020-01-12] MEDS ORDERED: ondansetron/PF 4mg/2ml inj IV ONE ×2 (16:15→23:05)
[2020-01-12] MEDS ORDERED: nitroGLYCERIN 0.4mg/hour patch TD ONE (16:15)
[2020-01-12 16:29] LABS: ALANINE AMINOTRANSFERASE 27 U/L (12-78); ALBUMIN 3.7 G/DL (3.4-5.0); ALBUMIN/GLOBULIN RATIO 1.1 (1.1-1.5); ALKALINE PHOSPHATASE 85 IU/L (46-116); ANION GAP 2 (8-16); ASPARTATE AMINO TRANSFERASE 28 U/L (10-37); BILIRUBIN,TOTAL 0.9 MG/DL (0.1-1.0); BLOOD UREA NITROGEN 15 MG/DL (7-18); BUN/CREATININE RATIO 14.3 (5.4-32.0); CALCIUM 9.4 MG/DL (8.5-10.1); CHLORIDE 101 MMOL/L (99-107); CREATININE 1.05 MG/DL (0.60-1.10); GLUCOSE 138 MG/DL (70-104); POTASSIUM 4.2 MMOL/L (3.5-5.1); SODIUM 137 MMOL/L (135-145); eGFR 70 ML/MIN
[2020-01-12] MEDS ORDERED: temazepam 15mg capsule PO PRN (21:00)
[2020-01-12] MEDS ORDERED: enoxaparin 100mg/ml syringe SUBCUT ONE (21:50)
--- NOTE | 2020-01-12 22:36 | NUR ---
pt daughter edwina [phone]
--- NOTE | 2020-01-12 23:00 | NUR ---
Patient in room PCU 3017. I have received report from JEANNA GOMEZ IN ER and had the opportunity to ask questions and assume patient care.
[2020-01-12] MEDS ORDERED: magnesium 4gm in 100ml NS 100 ML IV PRN (23:05)
[2020-01-12] MEDS ORDERED: magnesium 2GM in 50ml NS 50 ML IV PRN (23:05)
[2020-01-12] MEDS ORDERED: potassium Cl 20 mEq SR tablet PO PRN ×2 (23:05)
[2020-01-12] MEDS ORDERED: magnesium Cl slow-release 64mg tablet PO PRN (23:05)
[2020-01-12] MEDS ORDERED: acetaminophen 325mg tablet PO PRN ×2 (23:05)
[2020-01-12] MEDS ORDERED: ondansetron/PF 4mg/2ml inj IV PRN (23:05)
[2020-01-12] MEDS ORDERED: morphine 2 MG/ML inj. syringe IV PRN (23:05)
[2020-01-12] MEDS ORDERED: potassium CL 10mEq/100ml bag 100 ML IV PRN ×2 (23:05)
[2020-01-12] MEDS ORDERED: HYDROcodone/acetaminophen 5mg/325mg tablet PO PRN (23:05)
[2020-01-13] VITALS (7 sets, daily range): BP systolic 103–148; BP diastolic 58–71
[2020-01-13] MEDS: nitroGLYCERIN 0.4mg SUBLingual tab SL PRN ×4 (00:20→16:22)
[2020-01-13] MEDS: morphine 2 MG/ML inj. syringe IV PRN ×2 (00:30→10:24)
--- NOTE | 2020-01-13 02:04 | NUR ---
PAGER ID: [phone] MESSAGE: [id number] ALPHONSO VILLAR: ELEVATED TROPS, ABNORMAL RHYTHM STRIP, HX OF CVA/TIA/NM-CARDIAC CATH 01/06-DO YOU WANT US TO START HEPARIN DRIP PER PROTOCOL? LILIAM 0801
--- NOTE | 2020-01-13 02:05 | NUR ---
PER DR. HAINES, DO NOT START ANY NEW ORDERS
--- NOTE | 2020-01-13 02:45 | NUR ---
PAGER ID: [phone] MESSAGE: [id number] AUREA WERNER ONE TIME 60 MG LASIX NOW FOR INCREASED EDEMA/SWELLING? LILIAM [id number]
--- NOTE | 2020-01-13 02:46 | NUR ---
MAY GIVE LASIX EARLY PER MD Addendum: 01/13/20 at 0256 by Roxanne Mendoza RN PER CLARIFICATION WITH PATIENT AND MEDICATION RECONCILIATION, PATIENT NO LONGER ON TORSEMIDE 60 MG DAILY. NOT ON EMAR, NO LASIX OR TORSEMIDE GIVEN. ERROR NOTED, KULWINDER GOMEZ
[2020-01-13 04:57] LABS: BASOPHILS % (AUTO) 0.7 % (0-1); EOSINOPHILS # (AUTO) 0.1 X10'3 (0-0.9); EOSINOPHILS % (AUTO) 1.2 % (0-6); HEMATOCRIT 24.9 % (42.0-52.0); HEMOGLOBIN 8.3 g/dl (14.0-17.9); LYMPHOCYTES # (AUTO) 0.6 X10'3 (1.1-4.8); LYMPHOCYTES % (AUTO) 10.1 % (21-51); MEAN CORPUSCULAR HEMOGLOBIN 31.6 PG (27.0-31.0); MEAN CORPUSCULAR HGB CONC 33.3 g/dL (33.0-36.5); MEAN CORPUSCULAR VOLUME 94.9 FL (78-98); MONOCYTES # (AUTO) 0.3 X10'3 (0-0.9); MONOCYTES % (AUTO) 5.9 % (2-12); NEUTROPHILS # (AUTO) 4.6 X10'3 (1.8-7.7); NEUTROPHILS % (AUTO) 82.1 % (42-75); PLATELET COUNT 138 X10'3 (140-440); RED BLOOD COUNT 2.63 X10'6 (4.70-6.10); RED CELL DISTRIBUTION WIDTH 18.7 % (11.5-14.5); WHITE BLOOD COUNT 5.6 X10'3 (4.5-11.0)
[2020-01-13 05:17] LABS: ALANINE AMINOTRANSFERASE 40 U/L (12-78); ALBUMIN 3.4 G/DL (3.4-5.0); ALKALINE PHOSPHATASE 87 IU/L (46-116); ANION GAP 3 (8-16); ASPARTATE AMINO TRANSFERASE 47 U/L (10-37); BLOOD UREA NITROGEN 14 MG/DL (7-18); BUN/CREATININE RATIO 14.7 (5.4-32.0); CALCIUM 8.9 MG/DL (8.5-10.1); CHLORIDE 102 MMOL/L (99-107); CREATININE 0.95 MG/DL (0.60-1.10); GLUCOSE 105 MG/DL (70-104); POTASSIUM 4.5 MMOL/L (3.5-5.1); SODIUM 138 MMOL/L (135-145); TOTAL CARBON DIOXIDE 33.3 MMOL/L (24-32); TOTAL PROTEIN 6.7 G/DL (6.4-8.2); eGFR 78 ML/MIN
[2020-01-13 05:20] LABS: CHOL/HDL RATIO 4.6 (0.00-4.99); CHOLESTEROL 130 MG/DL (0-200); HDL CHOLESTEROL 28 MG/DL (35-60); LDL CHOLESTEROL 75 MG/DL (50-100); MAGNESIUM 2.2 MG/DL (1.5-2.4); TRIGLYCERIDES 139 MG/DL (20-135)
--- NOTE | 2020-01-13 05:31 | NUR ---
PAGER ID: [phone] MESSAGE: [id number] AUREA WERNER: 12 HR: CRITICAL TROP 0.85, EKG SHOWS ABNORMAL EKG, ST DEPRESSION, 4/10 CHEST PAIN. PLEASE ADVISE.
--- NOTE | 2020-01-13 05:35 | NUR ---
PER DR. HAINES, CARDIOLOGY TO CONSULT THIS AM, WILL FOLLOW PER PROTOCOL
[2020-01-13 05:42] LABS: ANISOCYTOSIS 2+; PLATELET ESTIMATE DECREASED
[2020-01-13 05:43] LABS: ELLIPTOCYTES FEW
--- NOTE | 2020-01-13 06:05 | NUR ---
Patient in room PCU 3017. I have received report from Roxanne GOMEZ and had the opportunity to ask questions and assume patient care. Patient alert and oriented, c/o pain but says he is " allright". Patient sounds slightly wheezy but has no SOB, no breathing treatments have been ordered per livestock farmworker, will continue to monitor and page MD for breathing treatments.
--- NOTE | 2020-01-13 06:39 | NUR ---
Problems reprioritized. Patient report given, questions answered & plan of care reviewed with GODFREY GOMEZ.
[2020-01-13] MEDS: K and/or MAG REPLACEMENT MC SCH ×2 (08:00→20:00)
[2020-01-13] MEDS ORDERED: amLODIPine 5mg tablet PO SCH (08:00)
[2020-01-13] MEDS: docusate sod 100mg capsule PO SCH ×2 (08:09→21:03)
[2020-01-13] MEDS: aspirin 81mg tablet.DR PO SCH (08:09)
[2020-01-13] MEDS: losartan 25mg tablet PO SCH (08:09)
[2020-01-13] MEDS: isosorbide mononitrate 30mg tab.SR.24H PO SCH (08:10)
[2020-01-13] MEDS: potassium chloride 10mEq ER tablet PO SCH (08:10)
[2020-01-13] MEDS: metoprolol tartrate 50mg tablet PO SCH ×2 (08:11→21:02)
[2020-01-13] MEDS: allopurinol 100mg tablet PO SCH (08:12)
[2020-01-13] MEDS: levoTHYROXINE 175mcg tablet PO SCH (08:12)
[2020-01-13] MEDS: pantoprazole 40mg Tablet.DR PO SCH ×2 (08:12→21:02)
[2020-01-13] MEDS: famotidine 20mg tablet PO SCH (08:12)
[2020-01-13] MEDS: finasteride 5mg tablet PO SCH (08:12)
[2020-01-13] MEDS: clopidogrel 75mg tablet PO SCH (08:12)
[2020-01-13] MEDS: heparin, porcine 5000 units/ml vial SQ SCH ×2 (08:13→21:17)
--- NOTE | 2020-01-13 10:09 | NUR ---
During morning med pass patient was complaining of chest pain, offered nitro and patient refused and is asking for morphine. Patient said that he could wait until after the med pass and I could come back to address his pain. After I had left the room the patient used his call light and said that he is now in 7/10 pain. When the patient was asked if it was chest pain which I could give a nitro or body pain, the patient requested only morphine. Will give the morphine and monitor.
--- NOTE | 2020-01-13 13:25 | NUR ---
Paged RT RE Rosalia Neal. [phone]. FYI new RT eval and treat orders. Thank you!
[2020-01-13] MEDS: furosemide 40mg/4ml inj IV SCH ×2 (13:27→21:04)
--- NOTE | 2020-01-13 13:31 | NUR ---
spoke with Dr. Carvajal, will not be discharging the patient today. new order for NPO after midnight. informed by MD that Dr. Jordan will be taking the patient to perform angiogram tomorrow. Patient was informed, also all pain medications have been D/C'd.
--- NOTE | 2020-01-13 18:00 | NUR ---
Patient in room PCU 3017. I have received report from GODFREY GOMEZ and had the opportunity to ask questions and assume patient care.
--- NOTE | 2020-01-13 18:43 | NUR ---
Problems reprioritized. Patient report given, questions answered & plan of care reviewed with Roxanne GOMEZ.
[2020-01-13] MEDS ORDERED: furosemide 40mg/4ml inj IV SCH ×2 (20:00)
[2020-01-13] MEDS: atorvastatin 20mg tablet PO SCH (21:00)
[2020-01-13] MEDS: terazosin 5mg capsule PO SCH (21:03)
[2020-01-14] VITALS (14 sets, daily range): BP systolic 97–159; BP diastolic 39–78
[2020-01-14 05:19] LABS: BASOPHILS % (AUTO) 0.6 % (0-1); EOSINOPHILS # (AUTO) 0.1 X10'3 (0-0.9); EOSINOPHILS % (AUTO) 1.1 % (0-6); HEMATOCRIT 23.5 % (42.0-52.0); HEMOGLOBIN 8.1 g/dl (14.0-17.9); LYMPHOCYTES # (AUTO) 0.5 X10'3 (1.1-4.8); LYMPHOCYTES % (AUTO) 10.9 % (21-51); MEAN CORPUSCULAR HEMOGLOBIN 32.6 PG (27.0-31.0); MEAN CORPUSCULAR HGB CONC 34.5 g/dL (33.0-36.5); MEAN CORPUSCULAR VOLUME 94.6 FL (78-98); MEAN PLATELET VOLUME 8.6 FL (7.4-10.4); MONOCYTES # (AUTO) 0.4 X10'3 (0-0.9); MONOCYTES % (AUTO) 7.6 % (2-12); NEUTROPHILS % (AUTO) 79.8 % (42-75); PLATELET COUNT 143 X10'3 (140-440); RED BLOOD COUNT 2.48 X10'6 (4.70-6.10); RED CELL DISTRIBUTION WIDTH 18.4 % (11.5-14.5)
[2020-01-14 05:30] LABS: GLUCOSE 111 MG/DL (70-104); SODIUM 138 MMOL/L (135-145)
[2020-01-14 05:31] LABS: ALANINE AMINOTRANSFERASE 60 U/L (12-78); ALBUMIN 3.2 G/DL (3.4-5.0); ALKALINE PHOSPHATASE 87 IU/L (46-116); ANION GAP 2 (8-16); ASPARTATE AMINO TRANSFERASE 42 U/L (10-37); BLOOD UREA NITROGEN 18 MG/DL (7-18); BUN/CREATININE RATIO 14.5 (5.4-32.0); CALCIUM 8.7 MG/DL (8.5-10.1); CHLORIDE 101 MMOL/L (99-107); CREATININE 1.24 MG/DL (0.60-1.10); MAGNESIUM 2.2 MG/DL (1.5-2.4); POTASSIUM 4.3 MMOL/L (3.5-5.1); TOTAL CARBON DIOXIDE 34.7 MMOL/L (24-32); TOTAL PROTEIN 6.5 G/DL (6.4-8.2); eGFR 58 ML/MIN
--- NOTE | 2020-01-14 06:24 | NUR ---
Problems reprioritized. Patient report given, questions answered & plan of care reviewed with SUMMER GOMEZ.
--- NOTE | 2020-01-14 06:25 | NUR ---
Patient in room PCU 3017. I have received report from Roxanne GOMEZ and had the opportunity to ask questions and assume patient care.
[2020-01-14 06:47] LABS: ANISOCYTOSIS 2+; NUCLEATED RED BLOOD CELLS 1 /100WBC (0-0); PLATELET ESTIMATE NORMAL; TOTAL CELLS COUNTED 100
[2020-01-14] MEDS ORDERED: iohexol 350MG/ML 100ml bottle IV ONE ×2 (07:26→08:22)
[2020-01-14] MEDS ORDERED: midazolam 2 mg/2 ml injection ONE ×3 (07:26→08:17)
[2020-01-14] MEDS ORDERED: LIDOcaine 1% (10mg/ml)w/preservative injection 20ml MDV ONE (07:26)
[2020-01-14] MEDS ORDERED: fentaNYL/PF 50MCG/1 ML 2ML syringe ONE (07:26)
[2020-01-14] MEDS ORDERED: verapamil 2.5 mg/ml inj IV ONE (07:48)
[2020-01-14] MEDS ORDERED: nitroGLYCERIN-Tridil 50MG/D5W 250 ML IV ONE (07:48)
[2020-01-14] MEDS ORDERED: heparin 1,000unit/ml 10ml vial 10 ML ONE (07:49)
[2020-01-14] MEDS ORDERED: HYDROmorphone 1 mg/ml syringe ONE ×2 (07:57→08:30)
[2020-01-14] MEDS: famotidine 20mg tablet PO SCH (08:00)
[2020-01-14] MEDS: losartan 25mg tablet PO SCH (08:00)
[2020-01-14] MEDS: aspirin 81mg tablet.DR PO SCH (08:00)
[2020-01-14] MEDS: docusate sod 100mg capsule PO SCH ×2 (08:00→20:17)
[2020-01-14] MEDS: clopidogrel 75mg tablet PO SCH (08:00)
[2020-01-14] MEDS: allopurinol 100mg tablet PO SCH (08:00)
[2020-01-14] MEDS: levoTHYROXINE 175mcg tablet PO SCH (08:00)
[2020-01-14] MEDS: pantoprazole 40mg Tablet.DR PO SCH ×2 (08:00→20:19)
[2020-01-14] MEDS: metoprolol tartrate 50mg tablet PO SCH ×2 (08:00→20:18)
[2020-01-14] MEDS: K and/or MAG REPLACEMENT MC SCH ×2 (08:00→20:00)
[2020-01-14] MEDS: potassium chloride 10mEq ER tablet PO SCH (08:00)
[2020-01-14] MEDS: finasteride 5mg tablet PO SCH (08:00)
[2020-01-14] MEDS ORDERED: proCHLORperazine 10 MG/2 ml inj ONE (08:25)
[2020-01-14] MEDS ORDERED: diphenhydrAMINE 50 mg/ml inj IV ONE (08:30)
[2020-01-14] MEDS ORDERED: diphenhydrAMINE 50 mg/ml inj ONE (08:33)
[2020-01-14] MEDS: isosorbide mononitrate 30mg tab.SR.24H PO SCH (11:47)
[2020-01-14] MEDS: furosemide 40mg/4ml inj IV SCH ×2 (11:50→20:17)
[2020-01-14] MEDS: enoxaparin 40mg/0.4ml syringe SUBCUT SCH ×2 (16:33→20:00)
[2020-01-14] MEDS: enoxaparin 80mg/0.8ml syringe SUBCUT SCH ×2 (16:34→20:00)
--- NOTE | 2020-01-14 18:27 | NUR ---
Patient in room PCU 3016. I have received report from Nhan GOMEZ and had the opportunity to ask questions and assume patient care.
--- NOTE | 2020-01-14 18:30 | NUR ---
Patient in room PCU 3010I. I have received report from PATRICIA Briceño and had the opportunity to ask questions and assume patient care.
--- NOTE | 2020-01-14 18:37 | NUR ---
Orientee documentation: I have reviewed and agree with all interventions, assessments performed and documented by Celi GOMEZ. Orientee Medication Administration: For this medication-pass time frame, all medication were reviewed, dispensed, administered and documented per hospital policy by Celi GOMEZ.
[2020-01-14] MEDS: atorvastatin 20mg tablet PO SCH (20:18)
[2020-01-14] MEDS: terazosin 5mg capsule PO SCH (20:18)
[2020-01-15 01:00] VITALS: BP 115/58
[2020-01-15 02:00] VITALS: BP 109/59
[2020-01-15] MEDS: HYDROcodone/acetaminophen 10/325mg tab PO PRN ×2 (04:26→10:01)
--- NOTE | 2020-01-15 06:12 | NUR ---
Problems reprioritized. Patient report given, questions answered & plan of care reviewed with PATRICIA Briceño and PATRICIA Alatorre.
--- NOTE | 2020-01-15 06:33 | NUR ---
Patient in room PCU 3017. I have received report from Macrina GOMEZ and had the opportunity to ask questions and assume patient care.
--- NOTE | 2020-01-15 06:33 | NUR ---
Patient in room PCU 3017. I have received report from Macrina GOMEZ and had the opportunity to ask questions and assume patient care.
[2020-01-15 06:40] LABS: BASOPHILS % (AUTO) 0.7 % (0-1); EOSINOPHILS # (AUTO) 0.1 X10'3 (0-0.9); EOSINOPHILS % (AUTO) 0.9 % (0-6); HEMATOCRIT 25.2 % (42.0-52.0); HEMOGLOBIN 8.4 g/dl (14.0-17.9); LYMPHOCYTES # (AUTO) 0.6 X10'3 (1.1-4.8); LYMPHOCYTES % (AUTO) 10.2 % (21-51); MEAN CORPUSCULAR HGB CONC 33.5 g/dL (33.0-36.5); MEAN CORPUSCULAR VOLUME 95.6 FL (78-98); MONOCYTES # (AUTO) 0.3 X10'3 (0-0.9); NEUTROPHILS # (AUTO) 4.7 X10'3 (1.8-7.7); NEUTROPHILS % (AUTO) 82.2 % (42-75); PLATELET COUNT 155 X10'3 (140-440); RED BLOOD COUNT 2.64 X10'6 (4.70-6.10); RED CELL DISTRIBUTION WIDTH 18.7 % (11.5-14.5); WHITE BLOOD COUNT 5.7 X10'3 (4.5-11.0)
[2020-01-15 06:47] LABS: ALANINE AMINOTRANSFERASE 52 U/L (12-78); ALBUMIN 3.4 G/DL (3.4-5.0); ALKALINE PHOSPHATASE 90 IU/L (46-116); ANION GAP 1 (8-16); ASPARTATE AMINO TRANSFERASE 43 U/L (10-37); BILIRUBIN,TOTAL 1.2 MG/DL (0.1-1.0); BLOOD UREA NITROGEN 17 MG/DL (7-18); CALCIUM 8.6 MG/DL (8.5-10.1); CHLORIDE 99 MMOL/L (99-107); CREATININE 1.21 MG/DL (0.60-1.10); GLUCOSE 123 MG/DL (70-104); MAGNESIUM 2.1 MG/DL (1.5-2.4); POTASSIUM 3.9 MMOL/L (3.5-5.1); SODIUM 137 MMOL/L (135-145); TOTAL CARBON DIOXIDE 36.7 MMOL/L (24-32); TOTAL PROTEIN 6.9 G/DL (6.4-8.2); eGFR 59 ML/MIN
[2020-01-15 07:36] VITALS: BP 128/53
[2020-01-15] MEDS: K and/or MAG REPLACEMENT MC SCH (08:00)
[2020-01-15 09:23] LABS: PLATELET ESTIMATE NORMAL
[2020-01-15] MEDS: nitroGLYCERIN 0.4mg SUBLingual tab SL PRN ×2 (09:27→09:33)
[2020-01-15 09:28] LABS: ANISOCYTOSIS 2+
[2020-01-15] MEDS: furosemide 40mg/4ml inj IV SCH (09:55)
[2020-01-15] MEDS: isosorbide mononitrate 30mg tab.SR.24H PO SCH (09:56)
[2020-01-15] MEDS: potassium chloride 10mEq ER tablet PO SCH (09:56)
[2020-01-15] MEDS: enoxaparin 40mg/0.4ml syringe SUBCUT SCH (09:57)
[2020-01-15] MEDS: allopurinol 100mg tablet PO SCH (09:58)
[2020-01-15] MEDS: famotidine 20mg tablet PO SCH (09:58)
[2020-01-15] MEDS: docusate sod 100mg capsule PO SCH (09:58)
[2020-01-15] MEDS: pantoprazole 40mg Tablet.DR PO SCH (09:59)
[2020-01-15 10:00] VITALS: BP_SYST 128
[2020-01-15] MEDS: metoprolol tartrate 50mg tablet PO SCH (10:00)
[2020-01-15] MEDS: clopidogrel 75mg tablet PO SCH (10:00)
[2020-01-15] MEDS: aspirin 81mg tablet.DR PO SCH (10:00)
[2020-01-15] MEDS: levoTHYROXINE 175mcg tablet PO SCH (10:00)
[2020-01-15] MEDS: finasteride 5mg tablet PO SCH (10:01)
[2020-01-15] MEDS ORDERED: HYDROmorphone 1 mg/ml syringe IV PRN (10:25)
[2020-01-15] MEDS: enoxaparin 80mg/0.8ml syringe SUBCUT SCH (10:33)
[2020-01-15] MEDS: losartan 25mg tablet PO SCH (10:33)
--- NOTE | 2020-01-15 15:07 | NUR ---
Patient picked up by REACH. IV
--- NOTE | 2020-01-15 15:08 | NUR ---
IV 's left in tact, monitoring tech removed, all patient belongings packed up. Patient's blue spray bottle of cologne was kept at nurses station due to inability to take on the flight. Report called to accepting facility.
== END 2020-01-15 15:04 | disposition short-term general hospital (02) | DRG 250 ==
LOC: ER 15:46 → ED HOLD 23:04 → PCU 3S 23:50
PROVIDERS: ADMIT Internal Medicine; ATTEND Family Medicine
PROC: 02703ZZ Dilation of Coronary Artery, One Artery, Percutaneous Approach (ICD-10-PCS; principal; 2020-01-14)
PROC: B2111ZZ Fluoroscopy of Multiple Coronary Arteries using Low Osmolar Contrast (ICD-10-PCS; 2020-01-14)
PROC: B221Z2Z Computerized Tomography (CT Scan) of Multiple Coronary Arteries using Intravascular Optical Coherence (ICD-10-PCS; 2020-01-14)
DX: T82.855A Stenosis of coronary artery stent, initial encounter (principal); I21.4 Non-ST elevation (NSTEMI) myocardial infarction; I50.32 Chronic diastolic (congestive) heart failure; Z68.41 Body mass index [BMI] 40.0-44.9, adult; F11.20 Opioid dependence, uncomplicated; E66.01 Morbid (severe) obesity due to excess calories; D63.8 Anemia in other chronic diseases classified elsewhere; E03.9 Hypothyroidism, unspecified; G89.29 Other chronic pain; I25.10 Atherosclerotic heart disease of native coronary artery without angina pectoris; I48.91 Unspecified atrial fibrillation; J44.9 Chronic obstructive pulmonary disease, unspecified; D50.9 Iron deficiency anemia, unspecified; N40.0 Benign prostatic hyperplasia without lower urinary tract symptoms; Y71.8 Miscellaneous cardiovascular devices associated with adverse incidents, not elsewhere classified; Y84.0 Cardiac catheterization as the cause of abnormal reaction of the patient, or of later complication, without mention of misadventure at the time of the procedure; Z79.02 Long term (current) use of antithrombotics/antiplatelets; I25.2 Old myocardial infarction; Z86.73 Personal history of transient ischemic attack (TIA), and cerebral infarction without residual deficits; Z87.442 Personal history of urinary calculi; Z99.3 Dependence on wheelchair; Y92.89 Other specified places as the place of occurrence of the external cause
CPT/HCPCS: 36415; 71045; 80053; 80061; 83735; 84484; 85025; 87081; 93005; 94760; 96372; 96374; 96375; 97161; 97530; 97535; 99285; G0378; J0780; J1170; J1200; J1644; J1650; J1940; J2001; J2250; J2270; J2405; J3010; J3490; Q9967

== ENCOUNTER 2021-08-18 18:46 | Inpatient (IN) | payer OTHER, MEDICARE ==
[~2021-08-18] VITALS: Ht 180.3 cm; Wt 120.0 kg
[~2021-08-18 18:46] MED LIST changes: +ALBU2.5V13 NEB; -ALLO100T PO; +ALLO100T25 PO; -ATOR20TA PO; +ATOR20TA66 PO; -BUPR2TAB11 PO; -CLOP75TA33 PO; -FINA1TAB17 PO; +FINA5TAB11 PO; +IPRA3AMP9 NEB; -ISOS120T13 PO; -LEVO200T8 PO; +LEVO75TA7 PO; +METO100T14 PO; -METO25TA6 PO; -NITR1PAT28 TD; -PANT40TA4 PO; +PANT40TA54 PO; -POTA10TA36 PO; -RANI300C PO; +RANO500T3 PO; -TERA1CAP4 PO; +TERA5CAP4 PO; +TICA90TA PO
[2021-08-18] MEDS ORDERED: aspirin 81mg tab.chew PO ONE (19:40)
[2021-08-18] MEDS ORDERED: [UNRECOGNIZED DRUG - OTHER] (19:58)
[2021-08-18 20:16] LABS: EOSINOPHILS % (AUTO) 0.8 % (0-6); HEMATOCRIT 25.9 % (42.0-52.0); HEMOGLOBIN 8.9 g/dl (14.0-17.9); LYMPHOCYTES # (AUTO) 0.4 X10'3 (1.1-4.8); MEAN CORPUSCULAR HGB CONC 34.4 g/dL (33.0-36.5); MEAN CORPUSCULAR VOLUME 99.1 FL (78-98); MEAN PLATELET VOLUME 8.7 FL (7.4-10.4); MONOCYTES # (AUTO) 0.3 X10'3 (0-0.9); MONOCYTES % (AUTO) 6.1 % (2-12); NEUTROPHILS # (AUTO) 3.7 X10'3 (1.8-7.7); NEUTROPHILS % (AUTO) 82.1 % (42-75); PLATELET COUNT 135 X10'3 (140-440); RED BLOOD COUNT 2.61 X10'6 (4.70-6.10); WHITE BLOOD COUNT 4.5 X10'3 (4.5-11.0)
[2021-08-18 20:28] LABS: PARTIAL THROMBOPLASTIN TIME 28 SECONDS (22-32)
[2021-08-18 20:29] LABS: ALANINE AMINOTRANSFERASE 24 U/L (12-78); ALBUMIN 3.3 G/DL (3.4-5.0); ALBUMIN/GLOBULIN RATIO 0.9 (1.1-1.5); ALKALINE PHOSPHATASE 62 IU/L (46-116); ANION GAP 4 (8-16); ASPARTATE AMINO TRANSFERASE 28 U/L (10-37); BILIRUBIN,TOTAL 0.8 MG/DL (0.1-1.0); BLOOD UREA NITROGEN 16 MG/DL (7-18); BUN/CREATININE RATIO 11.9 (5.4-32.0); CALCIUM 8.3 MG/DL (8.5-10.1); CHLORIDE 99 MMOL/L (99-107); CREATININE 1.34 MG/DL (0.60-1.10); GLUCOSE 106 MG/DL (70-104); POTASSIUM 3.5 MMOL/L (3.5-5.1); SODIUM 141 MMOL/L (135-145); TOTAL CARBON DIOXIDE 37.6 MMOL/L (24-32); TOTAL PROTEIN 6.9 G/DL (6.4-8.2); eGFR 53 ML/MIN
[2021-08-18 21:13] LABS: ANISOCYTOSIS 2+; PLATELET ESTIMATE DECREASED; TOTAL CELLS COUNTED 100
[2021-08-18 21:15] LABS: POLYCHROMASIA FEW
[2021-08-18 21:16] LABS: GIANT PLATELET FEW
[2021-08-18] MEDS ORDERED: morphine 2 MG/ML inj. syringe IV ONE (21:45)
[2021-08-18] MEDS ORDERED: ondansetron 4mg rapidly disintigrating tab PO ONE (21:55)
[2021-08-18] MEDS ORDERED: mag hydrox/Alum hydrox/simeth 30ml oral suspension PO PRN (22:45)
[2021-08-18] MEDS ORDERED: ondansetron/PF 4mg/2ml inj IV PRN (22:45)
[2021-08-18] MEDS ORDERED: acetaminophen 325mg tablet PO PRN (22:45)
[2021-08-18] MEDS ORDERED: magnesium hydroxide 30ml (MOM) UD suspension PO PRN (22:45)
[2021-08-18] MEDS ORDERED: PRED1TAB PO (22:53)
[2021-08-18] MEDS ORDERED: HYDR12.55 PO (22:53)
[2021-08-18] MEDS: ipratropium/albuterol 3ml nebule NEB SCH (23:55)
[2021-08-19] MEDS ORDERED: acetaminophen 325mg tablet PO ONE (01:10)
[2021-08-19] MEDS: Melatonin 3mg tablet PO PRN ×2 (01:26→21:01)
--- NOTE | 2021-08-19 01:30 | NUR ---
PT REFUSING TO WEAR HIS BIPAP MASK, C/O FEELING LIKE HE COULDN'T "GET AIR". MD WAS NOTIFIED, ORDER TAKEN FOR MELATONIN AND TYLENOL. PT WAS MEDICATED. ASKED FOR SNACK, GIVEN JELLO AND APPLESAUCE, TEA. PT SITTING UP IN CHAIR, PLACED ON A HOSPITAL BED.
[2021-08-19 02:04] LABS: ABSOLUTE RETICS # 93000 /CUMM (23000-93000); BASOPHILS % (AUTO) 1.1 % (0-1); HEMATOCRIT 26.3 % (42.0-52.0); HEMOGLOBIN 8.9 g/dl (14.0-17.9); LYMPHOCYTES # (AUTO) 0.5 X10'3 (1.1-4.8); LYMPHOCYTES % (AUTO) 13.7 % (21-51); MEAN CORPUSCULAR HEMOGLOBIN 33.6 PG (27.0-31.0); MEAN CORPUSCULAR HGB CONC 33.6 g/dL (33.0-36.5); MEAN CORPUSCULAR VOLUME 99.9 FL (78-98); MEAN PLATELET VOLUME 8.5 FL (7.4-10.4); MONOCYTES # (AUTO) 0.3 X10'3 (0-0.9); MONOCYTES % (AUTO) 6.5 % (2-12); NEUTROPHILS # (AUTO) 3.1 X10'3 (1.8-7.7); NEUTROPHILS % (AUTO) 77.7 % (42-75); PLATELET COUNT 128 X10'3 (140-440); RED BLOOD COUNT 2.64 X10'6 (4.70-6.10); RED CELL DISTRIBUTION WIDTH 19.7 % (11.5-14.5); RETICULOCYTE % (AUTO) 3.5 % (0.5-1.5)
[2021-08-19 02:15] LABS: ALANINE AMINOTRANSFERASE 20 U/L (12-78); ALBUMIN 3.3 G/DL (3.4-5.0); ALBUMIN/GLOBULIN RATIO 0.9 (1.1-1.5); ALKALINE PHOSPHATASE 62 IU/L (46-116); ANION GAP 4 (8-16); ASPARTATE AMINO TRANSFERASE 29 U/L (10-37); BILIRUBIN,TOTAL 0.7 MG/DL (0.1-1.0); BLOOD UREA NITROGEN 17 MG/DL (7-18); BUN/CREATININE RATIO 11.5 (5.4-32.0); CALCIUM 8.5 MG/DL (8.5-10.1); CHLORIDE 99 MMOL/L (99-107); CREATININE 1.48 MG/DL (0.60-1.10); GLUCOSE 109 MG/DL (70-104); POTASSIUM 3.6 MMOL/L (3.5-5.1); SODIUM 141 MMOL/L (135-145); TOTAL CARBON DIOXIDE 38.1 MMOL/L (24-32); TOTAL PROTEIN 6.9 G/DL (6.4-8.2); eGFR 47 ML/MIN
--- NOTE | 2021-08-19 02:50 | NUR ---
PT HAS BIPAP MASK ON BUT IS STATING "IT'S NOT GOING TO WORK". PT ENCOURAGED TO TRY A DISTRACTING ACTIVITY UNTIL HE BECAME USED TO THE MASK.
[2021-08-19 03:29] LABS: ABG BASE EXCESS 10.3 mmol/L (-2.0-2.0); ABG HCO3 36.1 mmol/L (22.0-26.0); ABG PO2 (T) 79.2 mmHg (75.0-100.0); ALLEN'S TEST POSITIVE; FCOHb 0.9 % (0.0-3.9); FMetHb 0.2 % (0.0-1.5); RESPIRATORY RATE 14 b/min; TOTAL HEMOGLOBIN 9.2 G/dl (14.0-18.0)
[2021-08-19] MEDS: ipratropium/albuterol 3ml nebule NEB SCH ×6 (03:35→23:28)
[2021-08-19] MEDS: levoTHYROXINE 75mcg tablet PO SCH (07:53)
[2021-08-19] MEDS: CALCITRIOL TP SCH (08:00)
--- NOTE | 2021-08-19 08:00 | NUR ---
SPOKE WITH DR ZIMMER, PT REQUESTING MEDICATION FOR BACK PAIN. ORDER RECEIVED FOR NORCO 5/325MG, PO, Q6H PRN PAIN. ORDER SENT TO PHARMACY
[2021-08-19] MEDS ORDERED: magnesium 4gm in 100ml NS 100 ML IV PRN (09:00)
[2021-08-19] MEDS ORDERED: potassium Cl 40MEQ/1/2NS 520ml 520 ML IV PRN (09:00)
[2021-08-19] MEDS ORDERED: magnesium Cl slow-release 64mg tablet PO PRN (09:00)
[2021-08-19] MEDS ORDERED: potassium Cl 20 mEq SR tablet PO PRN ×2 (09:00)
[2021-08-19] MEDS: aspirin 81mg, enteric-coated 1 TAB TABLET.DR PO SCH (09:13)
[2021-08-19] MEDS: atorvastatin 20mg tablet PO SCH (09:13)
[2021-08-19] MEDS: docusate sod 100mg capsule PO SCH ×2 (09:14→21:02)
[2021-08-19] MEDS: ticagrelor 90mg tablet PO SCH ×2 (09:14→21:01)
[2021-08-19] MEDS: allopurinol 100mg tablet PO SCH (09:14)
[2021-08-19] MEDS: pantoprazole 40mg Tablet.DR PO SCH ×2 (09:17→21:01)
[2021-08-19] MEDS: metoprolol tartrate 50mg tablet PO SCH ×2 (09:18→21:02)
[2021-08-19] MEDS: amLODIPine 5mg tablet PO SCH (09:18)
[2021-08-19] MEDS: heparin, porcine 5000 units/ml vial SQ SCH ×2 (09:21→21:08)
[2021-08-19] MEDS: predniSONE 20 mg tablet PO SCH (09:22)
[2021-08-19] MEDS: HYDROcodone/acetaminophen 5mg/325mg tablet PO PRN ×3 (09:48→21:01)
[2021-08-19] MEDS: ranolazine 500mg SR tablet (Q12H) PO SCH ×2 (10:27→21:00)
[2021-08-19] MEDS: finasteride 5mg tablet PO SCH (10:28)
[2021-08-19] MEDS ORDERED: HYDROcodone/acetaminophen 5mg/325mg tablet PO ONE (17:25)
[2021-08-19] MEDS: K and/or MAG REPLACEMENT MC SCH (20:00)
[2021-08-19] MEDS: terazosin 5mg capsule PO SCH (21:00)
[2021-08-19 22:00] VITALS: BP 129/42
--- NOTE | 2021-08-19 23:55 | NUR ---
Received patient to room 3023A , alert and oriented in no apparent acute distress, patient on room air,. oriented to room bed in lower position call light within reach, side rails x2 up will continue to monitor and report changes
[2021-08-20 02:00] VITALS: BP 116/56
[2021-08-20] MEDS: ipratropium/albuterol 3ml nebule NEB SCH ×6 (03:00→23:44)
--- NOTE | 2021-08-20 06:07 | NUR ---
patient on 5L of O2
[2021-08-20 06:09] LABS: BASOPHILS % (AUTO) 0.4 % (0-1); EOSINOPHILS % (AUTO) 0.3 % (0-6); HEMATOCRIT 24.8 % (42.0-52.0); HEMOGLOBIN 8.5 g/dl (14.0-17.9); LYMPHOCYTES # (AUTO) 0.3 X10'3 (1.1-4.8); LYMPHOCYTES % (AUTO) 7.4 % (21-51); MEAN CORPUSCULAR HEMOGLOBIN 33.8 PG (27.0-31.0); MEAN CORPUSCULAR HGB CONC 34.3 g/dL (33.0-36.5); MEAN CORPUSCULAR VOLUME 98.5 FL (78-98); MEAN PLATELET VOLUME 9.5 FL (7.4-10.4); MONOCYTES # (AUTO) 0.2 X10'3 (0-0.9); MONOCYTES % (AUTO) 5.2 % (2-12); NEUTROPHILS # (AUTO) 3.8 X10'3 (1.8-7.7); NEUTROPHILS % (AUTO) 86.7 % (42-75); PLATELET COUNT 128 X10'3 (140-440); RED BLOOD COUNT 2.51 X10'6 (4.70-6.10); RED CELL DISTRIBUTION WIDTH 19.2 % (11.5-14.5); WHITE BLOOD COUNT 4.4 X10'3 (4.5-11.0)
[2021-08-20 06:24] LABS: ALANINE AMINOTRANSFERASE 24 U/L (12-78); ALBUMIN 3.1 G/DL (3.4-5.0); ALBUMIN/GLOBULIN RATIO 0.9 (1.1-1.5); ALKALINE PHOSPHATASE 58 IU/L (46-116); ANION GAP 3 (8-16); ASPARTATE AMINO TRANSFERASE 26 U/L (10-37); BILIRUBIN,TOTAL 0.6 MG/DL (0.1-1.0); BLOOD UREA NITROGEN 18 MG/DL (7-18); BUN/CREATININE RATIO 15.4 (5.4-32.0); CALCIUM 8.8 MG/DL (8.5-10.1); CHLORIDE 99 MMOL/L (99-107); CREATININE 1.17 MG/DL (0.60-1.10); GLUCOSE 121 MG/DL (70-104); MAGNESIUM 2.3 MG/DL (1.5-2.4); PHOSPHORUS 3.9 MG/DL (2.3-4.5); SODIUM 140 MMOL/L (135-145); TOTAL CARBON DIOXIDE 38.4 MMOL/L (24-32); TOTAL PROTEIN 6.7 G/DL (6.4-8.2); eGFR 61 ML/MIN
--- NOTE | 2021-08-20 06:34 | NUR ---
Problems reprioritized. Patient report given, questions answered & plan of care reviewed with Luz GOMEZ.
--- NOTE | 2021-08-20 06:40 | NUR ---
Patient in room PCU 3023. I have received report from Lianne GOMEZ and had the opportunity to ask questions and assume patient care. Pt alert to voice, semi fowlers in bed. no s/sx acute distress.
[2021-08-20 07:00] VITALS: BP 145/73
[2021-08-20] MEDS: K and/or MAG REPLACEMENT MC SCH ×2 (08:00→20:00)
[2021-08-20] MEDS: CALCITRIOL TP SCH (08:00)
[2021-08-20] MEDS: ticagrelor 90mg tablet PO SCH ×2 (08:04→20:33)
[2021-08-20] MEDS: pantoprazole 40mg Tablet.DR PO SCH ×2 (08:04→20:33)
[2021-08-20] MEDS: metoprolol tartrate 50mg tablet PO SCH ×2 (08:04→20:00)
[2021-08-20] MEDS: finasteride 5mg tablet PO SCH (08:05)
[2021-08-20] MEDS: predniSONE 20 mg tablet PO SCH (08:05)
[2021-08-20] MEDS: docusate sod 100mg capsule PO SCH ×2 (08:05→20:33)
[2021-08-20] MEDS: allopurinol 100mg tablet PO SCH (08:05)
[2021-08-20] MEDS: aspirin 81mg, enteric-coated 1 TAB TABLET.DR PO SCH (08:05)
[2021-08-20] MEDS: amLODIPine 5mg tablet PO SCH (08:05)
[2021-08-20] MEDS: levoTHYROXINE 75mcg tablet PO SCH (08:05)
[2021-08-20] MEDS: heparin, porcine 5000 units/ml vial SQ SCH ×2 (08:06→20:31)
[2021-08-20] MEDS: atorvastatin 20mg tablet PO SCH (08:06)
[2021-08-20] MEDS: ranolazine 500mg SR tablet (Q12H) PO SCH ×2 (08:06→20:33)
[2021-08-20] MEDS: HYDROcodone/acetaminophen 5mg/325mg tablet PO PRN ×3 (08:17→23:52)
--- NOTE | 2021-08-20 10:26 | NUR ---
vascular paged for BLE study
--- NOTE | 2021-08-20 10:26 | NUR ---
Dr. steve to see pt new orders for lasix, ensure Echo done within last 6 months (last in 05/06) PT on board, and continued with new orders of antibiotic as well s CTA lungs.
[2021-08-20 11:00] VITALS: BP 127/62
[2021-08-20] MEDS ORDERED: iohexol 350MG/ML 100ml bottle IV ONE (11:07)
[2021-08-20] MEDS: azithromycin 250mg tablet PO SCH (11:43)
[2021-08-20] MEDS: CefTRIAXone/D5W-Rocephin 1gm 50 ML IV SCH (11:43)
[2021-08-20] MEDS: furosemide 40mg/4ml inj IV SCH ×2 (11:43→20:30)
[2021-08-20 15:00] VITALS: BP 122/50
[2021-08-20 18:00] VITALS: BP 125/51
--- NOTE | 2021-08-20 18:42 | NUR ---
Problems reprioritized. Patient report given, questions answered & plan of care reviewed with Liseth RN. pt sitting up eating dinner. no s/sx acute distress
--- NOTE | 2021-08-20 18:45 | NUR ---
Patient in room PCU 3023. I have received report from SOFI GOMEZ and had the opportunity to ask questions and assume patient care.
[2021-08-20] MEDS: nitroGLYCERIN 0.4mg SUBLingual tab SL PRN (19:35)
[2021-08-20] MEDS: Melatonin 3mg tablet PO PRN (20:33)
[2021-08-20] MEDS: terazosin 5mg capsule PO SCH (20:33)
[2021-08-20] MEDS: mineral oil/petrolatum, white cream 113gm jar TP SCH (20:51)
[2021-08-20 22:00] VITALS: BP 122/54
[2021-08-21 02:00] VITALS: BP 138/60
[2021-08-21] MEDS: ipratropium/albuterol 3ml nebule NEB SCH ×2 (03:39→07:18)
--- NOTE | 2021-08-21 06:13 | NUR ---
Problems reprioritized. Patient report given, questions answered & plan of care reviewed with SOFI GOMEZ.
[2021-08-21 07:00] VITALS: BP 144/64
--- NOTE | 2021-08-21 07:26 | NUR ---
Patient in room PCU 3023. I have received report from Liseth GOMEZ and had the opportunity to ask questions and assume patient care. Pt alert to voice, right side lying in bed, area cleared of food dishes and wrappers. pt smile at nurse and continue listing to TV on headphones. breathing even and non labored, 02 @ 4LPM/NC in mouth per pt preference. per Noc nurse, pt refused Bipap through the night.
[2021-08-21 07:36] LABS: BASOPHILS % (AUTO) 0.6 % (0-1); EOSINOPHILS % (AUTO) 0.7 % (0-6); HEMATOCRIT 25.4 % (42.0-52.0); HEMOGLOBIN 8.7 g/dl (14.0-17.9); LYMPHOCYTES # (AUTO) 0.5 X10'3 (1.1-4.8); LYMPHOCYTES % (AUTO) 10.4 % (21-51); MEAN CORPUSCULAR HGB CONC 34.1 g/dL (33.0-36.5); MEAN CORPUSCULAR VOLUME 99.8 FL (78-98); MEAN PLATELET VOLUME 9.4 FL (7.4-10.4); MONOCYTES # (AUTO) 0.3 X10'3 (0-0.9); MONOCYTES % (AUTO) 6.8 % (2-12); NEUTROPHILS # (AUTO) 3.5 X10'3 (1.8-7.7); NEUTROPHILS % (AUTO) 81.5 % (42-75); PLATELET COUNT 122 X10'3 (140-440); RED BLOOD COUNT 2.54 X10'6 (4.70-6.10); RED CELL DISTRIBUTION WIDTH 19.5 % (11.5-14.5); WHITE BLOOD COUNT 4.3 X10'3 (4.5-11.0)
[2021-08-21] MEDS: K and/or MAG REPLACEMENT MC SCH (08:00)
[2021-08-21] MEDS: mineral oil/petrolatum, white cream 113gm jar TP SCH (08:00)
[2021-08-21 08:03] LABS: ALANINE AMINOTRANSFERASE 22 U/L (12-78); ALBUMIN 3.2 G/DL (3.4-5.0); ALBUMIN/GLOBULIN RATIO 0.9 (1.1-1.5); ALKALINE PHOSPHATASE 55 IU/L (46-116); ANION GAP 3 (8-16); ASPARTATE AMINO TRANSFERASE 22 U/L (10-37); BILIRUBIN,TOTAL 0.6 MG/DL (0.1-1.0); BLOOD UREA NITROGEN 19 MG/DL (7-18); BUN/CREATININE RATIO 15.3 (5.4-32.0); CALCIUM 8.6 MG/DL (8.5-10.1); CHLORIDE 101 MMOL/L (99-107); CREATININE 1.24 MG/DL (0.60-1.10); GLUCOSE 122 MG/DL (70-104); MAGNESIUM 2.2 MG/DL (1.5-2.4); PHOSPHORUS 3.5 MG/DL (2.3-4.5); POTASSIUM 3.6 MMOL/L (3.5-5.1); SODIUM 143 MMOL/L (135-145); TOTAL CARBON DIOXIDE 39.3 MMOL/L (24-32); TOTAL PROTEIN 6.6 G/DL (6.4-8.2); eGFR 57 ML/MIN
[2021-08-21 08:37] LABS: TOTAL CELLS COUNTED 100
[2021-08-21 08:38] LABS: ANISOCYTOSIS 2+; PLATELET ESTIMATE DECREASED
[2021-08-21] MEDS: nitroGLYCERIN 0.4mg SUBLingual tab SL PRN ×2 (08:44→09:28)
[2021-08-21] MEDS: azithromycin 250mg tablet PO SCH (08:44)
[2021-08-21] MEDS: ranolazine 500mg SR tablet (Q12H) PO SCH (08:45)
[2021-08-21] MEDS: ticagrelor 90mg tablet PO SCH (08:45)
[2021-08-21] MEDS: HYDROcodone/acetaminophen 5mg/325mg tablet PO PRN (08:45)
[2021-08-21] MEDS: levoTHYROXINE 75mcg tablet PO SCH (08:45)
[2021-08-21] MEDS: pantoprazole 40mg Tablet.DR PO SCH (08:46)
[2021-08-21] MEDS: furosemide 40mg/4ml inj IV SCH (08:46)
[2021-08-21] MEDS: docusate sod 100mg capsule PO SCH (08:46)
[2021-08-21] MEDS: atorvastatin 20mg tablet PO SCH (08:47)
[2021-08-21] MEDS: finasteride 5mg tablet PO SCH (08:47)
[2021-08-21] MEDS: aspirin 81mg, enteric-coated 1 TAB TABLET.DR PO SCH (08:47)
[2021-08-21] MEDS: allopurinol 100mg tablet PO SCH (08:47)
[2021-08-21] MEDS: amLODIPine 5mg tablet PO SCH (08:47)
[2021-08-21] MEDS: metoprolol tartrate 50mg tablet PO SCH (08:47)
[2021-08-21] MEDS: heparin, porcine 5000 units/ml vial SQ SCH (08:48)
[2021-08-21] MEDS: CefTRIAXone/D5W-Rocephin 1gm 50 ML IV SCH (08:48)
[2021-08-21] MEDS: predniSONE 20 mg tablet PO SCH (08:56)
--- NOTE | 2021-08-21 09:00 | NUR ---
Pt with one episode chest pressure, relieved after one dose of nitro. prior to chest pain pt yelling at nurse and cursing when she asked what his chest felt like "I konw my body, you don't know shit. when i tell you i have a pain you just do your job and give me what i want." and pt began hitting himself in the head. Charge nurse notified and additional staff at bedside with this nurse for remainder of med pass and care. Pt's RFA Iv occluded. when nurse assessing, pt state "it was fine until you got near it!" pt not engaged in argueing, additional staff at bedside. meds administered. pt denies chest pain. demanding when he can have more norco, as he is swallowing current dose. pt notified it is a Q6 hour prn dosing. pt assessed, call light within reach, SR2, BLL, safety measures in place. no s/s acute distress.
[2021-08-21 09:29] VITALS: BP 163/85
--- NOTE | 2021-08-21 09:40 | NUR ---
Pt reported chest pain. two doses of nitro given, stat EKG completed. EKG taken to Dr. Mendez (with two previous EKG's.) Per Dr. Mendez: BBB, no change. no acute finding. no new orders. instructed nurse to make sure pt has discharge planning. conferred with pt. explained Dr's findings. Pt supine, breathing even and non labored, declaring "well that doctor is wrong he doesnt konw what he is talking about." pt education completed related diagnostics and MD orders. pt stated "thank you"
[2021-08-21] MEDS ORDERED: AZI25OT PO (10:03)
[2021-08-21] MEDS ORDERED: CEFD300C3 PO (10:03)
[2021-08-21 11:00] VITALS: BP 125/63
--- NOTE | 2021-08-21 13:40 | NUR ---
Pt stable for discharge per md orders. all discharge instructions explained. all questions answered. new Rx fax[place] to [place] [facility] in [place]. copy given to pt upon discharge. PIV pulled out by pt when pt retrieving gauze to d/c IV. cannula noted intact on self discontinued IV. torque tester discontinued. belongings collected and pt wheeled to [facility] where he left in a private vehicle, without s/sx SOB, bleeding from IV site, or acute distress.
[2021-09-10] MEDS ORDERED: ATOR40TA72 PO (20:18)
[2021-09-10] MEDS ORDERED: RANO500T6 PO (20:18)
[2021-09-10] MEDS ORDERED: NITR0.4T51 SL (20:26)
[2021-09-10] MEDS ORDERED: ASPI-1071 PO (20:26)
[2021-09-10] MEDS ORDERED: AMLO10TA PO (20:26)
[2021-09-10] MEDS ORDERED: [UNRECOGNIZED DRUG - CODE] TP (20:26)
== END 2021-08-21 13:40 | disposition home health service (06) | DRG 193 ==
LOC: ER 18:46 → ED HOLD 22:48 → PCU 3S 08-19 20:13
PROVIDERS: ADMIT Internal Medicine; ATTEND Family Medicine
PROC: 5A09357 Assistance with Respiratory Ventilation, Less than 24 Consecutive Hours, Continuous Positive Airway Pressure (ICD-10-PCS; 2021-08-19)
PROC: B32T1ZZ Computerized Tomography (CT Scan) of Left Pulmonary Artery using Low Osmolar Contrast (ICD-10-PCS; principal; 2021-08-20)
PROC: B3201ZZ Computerized Tomography (CT Scan) of Thoracic Aorta using Low Osmolar Contrast (ICD-10-PCS; 2021-08-20)
PROC: B32S1ZZ Computerized Tomography (CT Scan) of Right Pulmonary Artery using Low Osmolar Contrast (ICD-10-PCS; 2021-08-20)
PROC: 5A09357 Assistance with Respiratory Ventilation, Less than 24 Consecutive Hours, Continuous Positive Airway Pressure (ICD-10-PCS; 2021-08-21)
DX: J18.9 Pneumonia, unspecified organism (principal); J96.20 Acute and chronic respiratory failure, unspecified whether with hypoxia or hypercapnia; I50.33 Acute on chronic diastolic (congestive) heart failure; J44.1 Chronic obstructive pulmonary disease with (acute) exacerbation; E66.2 Morbid (severe) obesity with alveolar hypoventilation; E87.2 Acidosis; D61.818 Other pancytopenia; E78.5 Hyperlipidemia, unspecified; M10.9 Gout, unspecified; K21.9 Gastro-esophageal reflux disease without esophagitis; I89.0 Lymphedema, not elsewhere classified; I87.2 Venous insufficiency (chronic) (peripheral); I48.91 Unspecified atrial fibrillation; N40.0 Benign prostatic hyperplasia without lower urinary tract symptoms; E78.00 Pure hypercholesterolemia, unspecified; E03.9 Hypothyroidism, unspecified; F11.10 Opioid abuse, uncomplicated; I11.0 Hypertensive heart disease with heart failure; Z20.822 Contact with and (suspected) exposure to COVID-19; I27.29 Other secondary pulmonary hypertension; G89.4 Chronic pain syndrome; I25.119 Atherosclerotic heart disease of native coronary artery with unspecified angina pectoris; Z95.1 Presence of aortocoronary bypass graft; Z71.3 Dietary counseling and surveillance; Z68.36 Body mass index [BMI] 36.0-36.9, adult; Z87.442 Personal history of urinary calculi; I25.2 Old myocardial infarction; Z87.891 Personal history of nicotine dependence; Z86.73 Personal history of transient ischemic attack (TIA), and cerebral infarction without residual deficits; Z91.19 Patient's noncompliance with other medical treatment and regimen; Z79.899 Other long term (current) drug therapy; Z79.82 Long term (current) use of aspirin; Z95.5 Presence of coronary angioplasty implant and graft; I25.10 Atherosclerotic heart disease of native coronary artery without angina pectoris
CPT/HCPCS: 36415; 36600; 71045; 71275; 76937; 80053; 82803; 83735; 83880; 84100; 84145; 84484; 85007; 85018; 85025; 85045; 85610; 85730; 87635; 93005; 93970; 94640; 94660; 94760; 97116; 97162; 97530; 99285; C9803; G0378; J0696; J1644; J1940; J2270; J7512; Q9967

== ENCOUNTER 2021-09-17 04:46 | Emergency (ER) | payer OTHER, MEDICARE ==
[~2021-09-17] VITALS: Ht 182.9 cm; Wt 145.0 kg
[~2021-09-17 04:46] MED LIST changes: +ASPI-1071 PO; -ASPI-611 PO; -ATOR20TA66 PO; +ATOR40TA72 PO; -IPRA3AMP9 NEB; -LOSA25TA96 PO; +PRED1TAB PO; -RANO500T3 PO; +RANO500T6 PO; -[UNRECOGNIZED DRUG - CODE] TD; +[UNRECOGNIZED DRUG - CODE] TP
[2021-09-17] MEDS ORDERED: LORazepam 2 mg/ml vial IV ONE (05:40)
[2021-09-17 06:14] LABS: BASOPHILS % (AUTO) 0 % (0-1); EOSINOPHILS # (AUTO) 0.1 X10'3 (0-0.9); EOSINOPHILS % (AUTO) 1.8 % (0-6); HEMATOCRIT 28.3 % (42.0-52.0); HEMOGLOBIN 9.7 g/dl (14.0-17.9); LYMPHOCYTES # (AUTO) 0.4 X10'3 (1.1-4.8); LYMPHOCYTES % (AUTO) 6.2 % (21-51); MEAN CORPUSCULAR HGB CONC 34.3 g/dL (33.0-36.5); MEAN PLATELET VOLUME 8.6 FL (7.4-10.4); MONOCYTES # (AUTO) 0.4 X10'3 (0-0.9); NEUTROPHILS # (AUTO) 5.1 X10'3 (1.8-7.7); PLATELET COUNT 103 X10'3 (140-440); RED BLOOD COUNT 2.86 X10'6 (4.70-6.10); RED CELL DISTRIBUTION WIDTH 18.4 % (11.5-14.5)
[2021-09-17 06:24] LABS: ALANINE AMINOTRANSFERASE 33 U/L (12-78); ALBUMIN 3.4 G/DL (3.4-5.0); ALBUMIN/GLOBULIN RATIO 1.1 (1.1-1.5); ALKALINE PHOSPHATASE 51 IU/L (46-116); ANION GAP 0 (8-16); ASPARTATE AMINO TRANSFERASE 35 U/L (10-37); BILIRUBIN,TOTAL 0.7 MG/DL (0.1-1.0); BLOOD UREA NITROGEN 34 MG/DL (7-18); BUN/CREATININE RATIO 33.3 (5.4-32.0); CALCIUM 8.6 MG/DL (8.5-10.1); CHLORIDE 98 MMOL/L (99-107); CREATININE 1.02 MG/DL (0.60-1.10); GLUCOSE 103 MG/DL (70-104); SODIUM 138 MMOL/L (135-145); TOTAL CARBON DIOXIDE 39.7 MMOL/L (24-32); TOTAL PROTEIN 6.6 G/DL (6.4-8.2); eGFR 72 ML/MIN
[2021-09-17 06:31] LABS: MAGNESIUM 2.3 MG/DL (1.5-2.4)
[2021-09-17 06:32] LABS: POTASSIUM 4.8 MMOL/L (3.5-5.1)
[2021-09-17 07:41] LABS: LARGE PLATELETS FEW; PLATELET ESTIMATE DECREASED
[2021-09-17 07:42] LABS: ANISOCYTOSIS 2+
[2021-09-17 07:57] LABS: ABG BASE EXCESS 16.2 mmol/L (-2.0-2.0); ABG HCO3 45.7 mmol/L (22.0-26.0); ABG OXYGEN SATURATION 93.9 % (94-97); ABG PCO2 (T) 90.3 mmHg (35.0-48.0); ABG PO2 (T) 78.2 mmHg (75.0-100.0); ALLEN'S TEST POSITIVE; FCOHb 0.7 % (0.0-3.9); FMetHb 0.2 % (0.0-1.5); FO2Hb 93.1 % (94-97); RESPIRATORY RATE 14 b/min; TOTAL HEMOGLOBIN 10.7 G/dl (14.0-18.0)
--- NOTE | 2021-09-17 10:57 | NUR ---
PT SITTING AT EDGE OF BED. STATES HE HAS TOO MUCH PAIN TO LIE IN BED. WILL TRY TO GET HOSPITAL BED TO HELP PT FIND POSITION OF COMFORT.
--- NOTE | 2021-09-17 11:03 | NUR ---
RT at bedside for ABG
[2021-09-17 11:09] LABS: ABG BASE EXCESS 9.5 mmol/L (-2.0-2.0); ABG HCO3 35.9 mmol/L (22.0-26.0); ABG OXYGEN SATURATION 95.7 % (94-97); ABG PCO2 (T) 58.8 mmHg (35.0-48.0); ABG PO2 (T) 84.2 mmHg (75.0-100.0); ALLEN'S TEST POSITIVE; FCOHb 1.3 % (0.0-3.9); FO2Hb 94.5 % (94-97); RESPIRATORY RATE 8 b/min; TOTAL HEMOGLOBIN 10.8 G/dl (14.0-18.0)
[2021-09-17] MEDS ORDERED: acetaminophen 325mg tablet PO ONE (12:10)
[2021-09-17] MEDS ORDERED: morphine 4 MG/ML inj SYRINge IV ONE (12:10)
[2021-09-17] MEDS ORDERED: HYDROcodone/acetaminophen 10/325mg tab PO ONE (12:10)
[2021-09-17] MEDS ORDERED: orphenadrine citrate 60mg/2ml inj. IM ONE (12:10)
--- NOTE | 2021-09-17 12:20 | NUR ---
PT TAKEN OFF BIPAP, PLACED ON 6L NC. PT TOLERATING WELL, O2 98%, COMPLETING FULL SENTENCES. CRACKERS AND JUICE PROVIDED, SITTING IN BED TOLERATING WELL.
--- NOTE | 2021-09-17 12:38 | NUR ---
PT MEDICATED PER MD ORDERS. REQUESTING ADDITIONAL FOOD.
--- NOTE | 2021-09-17 14:10 | NUR ---
PT VERBALIZED UNDERSTANDING OF D/C ORDERS. TRANSPORTED VIA AMBULANCE BACK TO [facility]. 6L NC REMAINS IN PLACE, RR EVEN AND UNLABORED. NAD. REPORT CALLED TO [facility].
[2021-09-17 14:17] VITALS: BP 109/68
== END 2021-09-17 14:26 | disposition home or self-care (01) ==
LOC: ER 04:46
DX: R06.03 Acute respiratory distress (principal); I50.9 Heart failure, unspecified; I11.0 Hypertensive heart disease with heart failure; E87.2 Acidosis; R06.02 Shortness of breath; R53.83 Other fatigue; I48.91 Unspecified atrial fibrillation; I25.10 Atherosclerotic heart disease of native coronary artery without angina pectoris; E78.00 Pure hypercholesterolemia, unspecified; I25.2 Old myocardial infarction; J44.9 Chronic obstructive pulmonary disease, unspecified; G89.29 Other chronic pain; Z68.41 Body mass index [BMI] 40.0-44.9, adult; Z87.442 Personal history of urinary calculi; Z86.73 Personal history of transient ischemic attack (TIA), and cerebral infarction without residual deficits; Z98.890 Other specified postprocedural states; Z79.82 Long term (current) use of aspirin; Z79.899 Other long term (current) drug therapy
CPT/HCPCS: 36415; 36600; 71045; 80053; 82803; 83605; 83735; 83880; 84145; 85008; 85018; 85025; 87040; 93005; 94660; 96372; 96374; 96375; 99291; J2060; J2270; J2360; 94760

== ENCOUNTER 2021-11-03 15:17 | Emergency (ER) | payer OTHER, MEDICARE ==
[~2021-11-03] VITALS: Ht 180.3 cm; Wt 134.6 kg
[2021-11-03] MEDS ORDERED: oxyCODONE/APAP 10/325mg tablet PO ONE ×2 (15:40→15:55)
[2021-11-03 15:46] LABS: BASOPHILS % (AUTO) 0.9 % (0-1); EOSINOPHILS # (AUTO) 0.1 X10'3 (0-0.9); EOSINOPHILS % (AUTO) 1.6 % (0-6); HEMATOCRIT 27.7 % (42.0-52.0); HEMOGLOBIN 9.4 g/dl (14.0-17.9); LYMPHOCYTES # (AUTO) 0.5 X10'3 (1.1-4.8); LYMPHOCYTES % (AUTO) 10.9 % (21-51); MEAN CORPUSCULAR HEMOGLOBIN 32.2 PG (27.0-31.0); MEAN CORPUSCULAR HGB CONC 34.1 g/dL (33.0-36.5); MEAN CORPUSCULAR VOLUME 94.4 FL (78-98); MEAN PLATELET VOLUME 9.5 FL (7.4-10.4); MONOCYTES # (AUTO) 0.3 X10'3 (0-0.9); NEUTROPHILS # (AUTO) 3.9 X10'3 (1.8-7.7); NEUTROPHILS % (AUTO) 79.6 % (42-75); PLATELET COUNT 173 X10'3 (140-440); RED BLOOD COUNT 2.93 X10'6 (4.70-6.10); RED CELL DISTRIBUTION WIDTH 17.9 % (11.5-14.5); WHITE BLOOD COUNT 4.9 X10'3 (4.5-11.0)
[2021-11-03 16:05] LABS: ALANINE AMINOTRANSFERASE 24 U/L (12-78); ALBUMIN 3.7 G/DL (3.4-5.0); ALBUMIN/GLOBULIN RATIO 1.1 (1.1-1.5); ALKALINE PHOSPHATASE 71 IU/L (46-116); ANION GAP 5 (8-16); ASPARTATE AMINO TRANSFERASE 47 U/L (10-37); BILIRUBIN,TOTAL 0.8 MG/DL (0.1-1.0); BLOOD UREA NITROGEN 28 MG/DL (7-18); BUN/CREATININE RATIO 20.9 (5.4-32.0); CALCIUM 9.3 MG/DL (8.5-10.1); CHLORIDE 92 MMOL/L (99-107); CREATININE 1.34 MG/DL (0.60-1.10); GLUCOSE 136 MG/DL (70-104); SODIUM 136 MMOL/L (135-145); TOTAL CARBON DIOXIDE 39.4 MMOL/L (24-32); TOTAL PROTEIN 7.2 G/DL (6.4-8.2); eGFR 52 ML/MIN
[2021-11-03 16:11] LABS: POTASSIUM 3.3 MMOL/L (3.5-5.1)
[2021-11-03] MEDS ORDERED: CefTRIAXone 2gm/D5W 50ml BAG 50 ML IV ONE (16:20)
[2021-11-03] MEDS ORDERED: furosemide 10 MG/1 ML 10ml inj IV ONE (16:20)
[2021-11-03 16:28] LABS: ANISOCYTOSIS 1+; PLATELET ESTIMATE NORMAL; TOTAL CELLS COUNTED 100
[2021-11-03 16:30] LABS: ELLIPTOCYTES FEW
[2021-11-03 16:33] LABS: LARGE PLATELETS FEW
--- NOTE | 2021-11-03 17:42 | NUR ---
Nurse to Nurse report given to Latonia at [facility], including medications/lab results
[2021-11-03 17:55] VITALS: BP 121/69
== END 2021-11-03 17:58 ==
LOC: ER 15:18
DX: J18.9 Pneumonia, unspecified organism (principal); R07.89 Other chest pain; I25.10 Atherosclerotic heart disease of native coronary artery without angina pectoris; I48.91 Unspecified atrial fibrillation; E78.00 Pure hypercholesterolemia, unspecified; I25.2 Old myocardial infarction; J44.9 Chronic obstructive pulmonary disease, unspecified; Z86.73 Personal history of transient ischemic attack (TIA), and cerebral infarction without residual deficits; Z87.442 Personal history of urinary calculi; Z20.822 Contact with and (suspected) exposure to COVID-19
CPT/HCPCS: 36415; 71045; 80053; 83880; 84484; 85007; 85025; 87635; 93005; 96365; 96375; 99285; C9803; J0696; J1940

== ENCOUNTER 2021-12-17 09:02 | Inpatient (IN) | payer OTHER, MEDICARE ==
[~2021-12-17] VITALS: Ht 332.7 cm; Wt 83.0 kg
[2021-12-17] MEDS ORDERED: furosemide 40mg/4ml inj IV ONE (09:20)
[2021-12-17] MEDS ORDERED: albuterol 2.5 MG/3 ML nebule NEB ONE (09:20)
[2021-12-17] MEDS ORDERED: methylPREDNISolone sod succ 125mg/2ml vial IV ONE (09:20)
[2021-12-17] MEDS ORDERED: ipratropium/albuterol 3ml nebule NEB ONE (09:20)
--- NOTE | 2021-12-17 09:50 | NUR ---
Rt at bedside.
[2021-12-17 09:55] LABS: BASOPHILS % (AUTO) 0.5 % (0-1); EOSINOPHILS % (AUTO) 0.5 % (0-6); HEMATOCRIT 26.4 % (42.0-52.0); HEMOGLOBIN 8.8 g/dl (14.0-17.9); LYMPHOCYTES # (AUTO) 0.4 X10'3 (1.1-4.8); LYMPHOCYTES % (AUTO) 4.5 % (21-51); MEAN CORPUSCULAR HEMOGLOBIN 32.2 PG (27.0-31.0); MEAN CORPUSCULAR HGB CONC 33.3 g/dL (33.0-36.5); MEAN CORPUSCULAR VOLUME 96.7 FL (78-98); MEAN PLATELET VOLUME 8.5 FL (7.4-10.4); MONOCYTES # (AUTO) 0.6 X10'3 (0-0.9); MONOCYTES % (AUTO) 7.1 % (2-12); NEUTROPHILS % (AUTO) 87.4 % (42-75); PLATELET COUNT 156 X10'3 (140-440); RED BLOOD COUNT 2.73 X10'6 (4.70-6.10); RED CELL DISTRIBUTION WIDTH 19.9 % (11.5-14.5); WHITE BLOOD COUNT 8.1 X10'3 (4.5-11.0)
[2021-12-17 09:58] LABS: ABG HCO3 41.1 mmol/L (22.0-26.0); ABG OXYGEN SATURATION 89.3 % (94-97); ABG PCO2 (T) 97.8 mmHg (35.0-48.0); ABG PO2 (T) 67.8 mmHg (75.0-100.0); ALLEN'S TEST POSITIVE; FCOHb 1.6 % (0.0-3.9); FMetHb 0.1 % (0.0-1.5); FO2Hb 87.8 % (94-97); PATIENT TEMPERATURE 36.6; TOTAL HEMOGLOBIN 9.8 G/dl (14.0-18.0)
[2021-12-17 09:59] LABS: ALANINE AMINOTRANSFERASE 25 U/L (12-78); ALBUMIN 3.6 G/DL (3.4-5.0); ALBUMIN/GLOBULIN RATIO 0.9 (1.1-1.5); ALKALINE PHOSPHATASE 90 IU/L (46-116); ANION GAP 5 (8-16); ASPARTATE AMINO TRANSFERASE 26 U/L (10-37); BILIRUBIN,TOTAL 0.9 MG/DL (0.1-1.0); BLOOD UREA NITROGEN 14 MG/DL (7-18); BUN/CREATININE RATIO 13.9 (5.4-32.0); CALCIUM 9.1 MG/DL (8.5-10.1); CHLORIDE 93 MMOL/L (99-107); CREATININE 1.01 MG/DL (0.60-1.10); GLUCOSE 149 MG/DL (70-104); POTASSIUM 4.4 MMOL/L (3.5-5.1); SODIUM 136 MMOL/L (135-145); TOTAL CARBON DIOXIDE 37.9 MMOL/L (24-32); TOTAL PROTEIN 7.4 G/DL (6.4-8.2); eGFR 73 ML/MIN
--- NOTE | 2021-12-17 10:14 | NUR ---
RT at bedside setting pt up on BiPAP.
--- NOTE | 2021-12-17 10:14 | NUR ---
G results reported to
[2021-12-17 11:21] LABS: ANISOCYTOSIS 2+; PLATELET ESTIMATE NORMAL
[2021-12-17 11:22] LABS: TEAR DROP CELLS FEW
--- NOTE | 2021-12-17 11:36 | NUR ---
Pt less arousable, only arouses to pain. MD notified.
--- NOTE | 2021-12-17 11:37 | NUR ---
MD at bedside, states to keep FiO2 at 40% and SaO2 > or equal to 85%.
[2021-12-17 12:06] LABS: ABG BASE EXCESS 12.4 mmol/L (-2.0-2.0); ABG OXYGEN SATURATION 87.8 % (94-97); ABG PCO2 (T) 93.9 mmHg (35.0-48.0); ABG PO2 (T) 60.8 mmHg (75.0-100.0); ALLEN'S TEST POSITIVE; FCOHb 1.7 % (0.0-3.9); FMetHb 0.1 % (0.0-1.5); FO2Hb 86.2 % (94-97); PATIENT TEMPERATURE 36.6; TOTAL HEMOGLOBIN 9.5 G/dl (14.0-18.0)
--- NOTE | 2021-12-17 12:15 | NUR ---
RT at bedside to adjust BiPAP settings following repeat ABG.
[2021-12-17 13:18] LABS: ABG BASE EXCESS 11.8 mmol/L (-2.0-2.0); ABG HCO3 40.9 mmol/L (22.0-26.0); ABG OXYGEN SATURATION 89.4 % (94-97); ABG PCO2 (T) 86.1 mmHg (35.0-48.0); ABG PO2 (T) 62.5 mmHg (75.0-100.0); ALLEN'S TEST POSITIVE; FCOHb 1.7 % (0.0-3.9); FMetHb 0.1 % (0.0-1.5); FO2Hb 87.8 % (94-97); PATIENT TEMPERATURE 36.6; TOTAL HEMOGLOBIN 9.8 G/dl (14.0-18.0)
--- NOTE | 2021-12-17 13:28 | NUR ---
Pt more arousable at this time. States he is hungry, asking for a milkshake.
[2021-12-17] MEDS ORDERED: magnesium hydroxide 30ml (MOM) UD suspension PO PRN (13:40)
[2021-12-17] MEDS ORDERED: magnesium 4gm in 100ml NS 100 ML IV PRN (13:40)
[2021-12-17] MEDS ORDERED: potassium Cl 20 mEq SR tablet PO PRN (13:40)
[2021-12-17] MEDS ORDERED: magnesium 2GM in 50ml NS 50 ML IV PRN (13:40)
[2021-12-17] MEDS ORDERED: potassium CL 10mEq/100ml bag 100 ML IV PRN (13:40)
[2021-12-17] MEDS ORDERED: acetaminophen 650mg rectal suppository RC PRN (13:40)
[2021-12-17] MEDS ORDERED: acetaminophen 325mg tablet PO PRN ×2 (13:40)
[2021-12-17] MEDS ORDERED: metoclopramide 5 mg/ml inj IV PRN (13:40)
[2021-12-17] MEDS ORDERED: ipratropium/albuterol 3ml nebule NEB PRN (13:40)
[2021-12-17] MEDS ORDERED: CefTRIAXone 2gm/D5W 50ml BAG 50 ML IV ONE (13:40)
[2021-12-17] MEDS ORDERED: HYDROcodone/acetaminophen 5mg/325mg tablet PO PRN (13:40)
[2021-12-17] MEDS ORDERED: ondansetron/PF 4mg/2ml inj IV PRN (13:40)
[2021-12-17] MEDS ORDERED: diphenhydrAMINE 50 mg/ml inj IV PRN (13:40)
[2021-12-17] MEDS ORDERED: magnesium Cl slow-release 64mg tablet PO PRN (13:40)
[2021-12-17] MEDS ORDERED: mag hydrox/Alum hydrox/simeth 30ml oral suspension PO PRN (13:40)
[2021-12-17] MEDS ORDERED: ondansetron 4mg rapidly disintigrating tab PO PRN (13:40)
[2021-12-17] MEDS ORDERED: bisacodyl 10mg suppository rectal RC PRN (13:40)
[2021-12-17] MEDS: methylPREDNISolone sod succ 125mg/2ml vial IV SCH ×2 (14:14→20:02)
[2021-12-17 15:46] LABS: POTASSIUM 4.5 MMOL/L (3.5-5.1)
[2021-12-17] MEDS: ipratropium/albuterol 3ml nebule NEB SCH ×3 (15:47→22:54)
[2021-12-17] MEDS ORDERED: FAMO20TA8 PO (16:22)
[2021-12-17] MEDS ORDERED: FURO-150 PO (16:22)
[2021-12-17] MEDS ORDERED: HYDR25TA5 PO (16:22)
[2021-12-17] MEDS ORDERED: HYDR-3972 PO (16:22)
[2021-12-17] MEDS ORDERED: ATR0.5NEB IH (16:22)
[2021-12-17] MEDS ORDERED: LACTC PO (16:22)
[2021-12-17] MEDS ORDERED: DOCU100C40 PO (16:22)
[2021-12-17] MEDS ORDERED: POTA-82 PO (16:22)
[2021-12-17] MEDS ORDERED: FINA5TAB11 PO (16:22)
[2021-12-17] MEDS ORDERED: SERT-433 PO (16:23)
[2021-12-17 17:04] VITALS: BP 134/76
[2021-12-17 17:40] LABS: ABG BASE EXCESS 14.4 mmol/L (-2.0-2.0); ABG HCO3 43.1 mmol/L (22.0-26.0); ABG OXYGEN SATURATION 92.2 % (94-97); ABG PCO2 (T) 85.1 mmHg (35.0-48.0); ABG PO2 (T) 69.4 mmHg (75.0-100.0); ALLEN'S TEST POSITIVE; FMetHb 0.3 % (0.0-1.5); RESPIRATORY RATE 16 b/min; TIDAL VOLUME 814 mL; TOTAL HEMOGLOBIN 9.6 G/dl (14.0-18.0)
[2021-12-17 18:00] VITALS: BP 130/67
[2021-12-17] MEDS: K and/or MAG REPLACEMENT MC SCH (20:00)
[2021-12-17] MEDS ORDERED: furosemide 40mg/4ml inj IV SCH (20:00)
[2021-12-17] MEDS: heparin, porcine 5000 units/ml vial SQ SCH (20:02)
[2021-12-17] MEDS: furosemide 40mg/4ml inj IV SCH (20:02)
[2021-12-17] MEDS: acetaZOLAMIDE IV 500mg inj IV SCH (20:03)
[2021-12-17] MEDS: HYDROcodone/acetaminophen 10/325mg tab PO PRN (21:49)
[2021-12-17 22:00] VITALS: BP 141/61
[2021-12-17] MEDS: temazepam 15mg capsule PO PRN (22:13)
[2021-12-18] MEDS: methylPREDNISolone sod succ 125mg/2ml vial IV SCH ×4 (01:13→20:11)
[2021-12-18] MEDS: HYDROcodone/acetaminophen 10/325mg tab PO PRN ×5 (01:41→22:26)
[2021-12-18 02:00] VITALS: BP 122/74
[2021-12-18] MEDS: ipratropium/albuterol 3ml nebule NEB SCH ×6 (02:52→23:10)
[2021-12-18 06:37] LABS: BASOPHILS % (AUTO) 0.1 % (0-1); EOSINOPHILS % (AUTO) 0 % (0-6); HEMOGLOBIN 7.7 g/dl (14.0-17.9); LYMPHOCYTES # (AUTO) 0.2 X10'3 (1.1-4.8); LYMPHOCYTES % (AUTO) 3.4 % (21-51); MEAN CORPUSCULAR HEMOGLOBIN 32.2 PG (27.0-31.0); MEAN CORPUSCULAR HGB CONC 33.5 g/dL (33.0-36.5); MEAN CORPUSCULAR VOLUME 96.2 FL (78-98); MEAN PLATELET VOLUME 8.7 FL (7.4-10.4); MONOCYTES # (AUTO) 0.1 X10'3 (0-0.9); NEUTROPHILS # (AUTO) 5.6 X10'3 (1.8-7.7); NEUTROPHILS % (AUTO) 94.5 % (42-75); PLATELET COUNT 133 X10'3 (140-440); RED BLOOD COUNT 2.39 X10'6 (4.70-6.10); RED CELL DISTRIBUTION WIDTH 19.4 % (11.5-14.5); WHITE BLOOD COUNT 5.9 X10'3 (4.5-11.0)
[2021-12-18 06:55] LABS: ALANINE AMINOTRANSFERASE 22 U/L (12-78); ALBUMIN 3.1 G/DL (3.4-5.0); ALBUMIN/GLOBULIN RATIO 0.7 (1.1-1.5); ALKALINE PHOSPHATASE 76 IU/L (46-116); ANION GAP 2 (8-16); ASPARTATE AMINO TRANSFERASE 21 U/L (10-37); BILIRUBIN,TOTAL 0.5 MG/DL (0.1-1.0); BLOOD UREA NITROGEN 18 MG/DL (7-18); CALCIUM 8.9 MG/DL (8.5-10.1); CHLORIDE 95 MMOL/L (99-107); GLUCOSE 167 MG/DL (70-104); MAGNESIUM 2.1 MG/DL (1.5-2.4); POTASSIUM 3.8 MMOL/L (3.5-5.1); SODIUM 136 MMOL/L (135-145); TOTAL CARBON DIOXIDE 39.3 MMOL/L (24-32); TOTAL PROTEIN 7.6 G/DL (6.4-8.2); eGFR 73 ML/MIN
[2021-12-18 07:00] VITALS: BP 126/68
[2021-12-18] MEDS: K and/or MAG REPLACEMENT MC SCH ×2 (08:00→20:00)
[2021-12-18] MEDS: furosemide 40mg/4ml inj IV SCH ×3 (08:00→20:11)
[2021-12-18] MEDS: heparin, porcine 5000 units/ml vial SQ SCH ×2 (08:00→20:11)
[2021-12-18] MEDS: acetaZOLAMIDE IV 500mg inj IV SCH (08:01)
[2021-12-18 08:46] LABS: ANISOCYTOSIS 2+; NUCLEATED RED BLOOD CELLS 2 /100WBC (0-0); PLATELET ESTIMATE DECREASED; TOTAL CELLS COUNTED 100
[2021-12-18 08:47] LABS: POLYCHROMASIA FEW; SCHISTOCYTES FEW; STOMATOCYTES 1+
[2021-12-18] MEDS ORDERED: nitroGLYCERIN 0.4mg SUBLingual tab SL PRN (09:20)
[2021-12-18] MEDS ORDERED: non-formulary drug (Potassium Chloride 1 TAB) PO PRN (09:20)
[2021-12-18] MEDS: allopurinol 300 MG tablet PO SCH (09:25)
[2021-12-18] MEDS: ticagrelor 90mg tablet PO SCH ×2 (09:28→20:11)
[2021-12-18] MEDS: aspirin 81mg, enteric-coated 1 TAB TABLET.DR PO SCH (10:47)
[2021-12-18] MEDS: ranolazine 500mg SR tablet (Q12H) PO SCH ×2 (10:47→20:12)
[2021-12-18] MEDS: pantoprazole 40mg Tablet.DR PO SCH ×2 (10:47→20:12)
[2021-12-18] MEDS: amLODIPine 5mg tablet PO SCH (10:48)
[2021-12-18] MEDS: levoTHYROXINE 75mcg tablet PO SCH (10:49)
[2021-12-18] MEDS: famotidine 20mg tablet PO SCH (10:54)
[2021-12-18 11:00] VITALS: BP 126/66
[2021-12-18] MEDS: CefTRIAXone/D5W-Rocephin 1gm 50 ML IV SCH (11:33)
[2021-12-18] MEDS: finasteride 5mg tablet PO SCH (13:44)
[2021-12-18 18:00] VITALS: BP 128/58
[2021-12-18 19:04] LABS: ABG BASE EXCESS 9.7 mmol/L (-2.0-2.0); ABG HCO3 35.6 mmol/L (22.0-26.0); ABG PCO2 (T) 56.6 mmHg (35.0-48.0); ALLEN'S TEST POSITIVE; FCOHb 0.1 % (0.0-3.9); FMetHb 0.4 % (0.0-1.5); FO2Hb 93.5 % (94-97); RESPIRATORY RATE 16 b/min
[2021-12-18] MEDS: docusate sod 100mg capsule PO SCH (20:11)
[2021-12-18] MEDS: sertraline 50mg tablet PO SCH (20:12)
[2021-12-18] MEDS: temazepam 15mg capsule PO PRN (21:51)
[2021-12-18 22:00] VITALS: BP 133/62
[2021-12-19] MEDS: methylPREDNISolone sod succ 125mg/2ml vial IV SCH ×3 (01:16→13:28)
[2021-12-19 02:00] VITALS: BP 140/68
[2021-12-19] MEDS: HYDROcodone/acetaminophen 10/325mg tab PO PRN ×3 (02:52→13:30)
[2021-12-19] MEDS: diphenhydrAMINE 25mg capsule PO PRN ×2 (03:00→19:54)
[2021-12-19] MEDS: ipratropium/albuterol 3ml nebule NEB SCH ×6 (03:27→23:26)
[2021-12-19 07:09] LABS: BASOPHILS % (AUTO) 0 % (0-1); EOSINOPHILS % (AUTO) 0 % (0-6); HEMATOCRIT 23.7 % (42.0-52.0); HEMOGLOBIN 8.1 g/dl (14.0-17.9); LYMPHOCYTES # (AUTO) 0.2 X10'3 (1.1-4.8); LYMPHOCYTES % (AUTO) 2.6 % (21-51); MEAN CORPUSCULAR HEMOGLOBIN 32.8 PG (27.0-31.0); MEAN CORPUSCULAR HGB CONC 34.2 g/dL (33.0-36.5); MEAN CORPUSCULAR VOLUME 95.9 FL (78-98); MEAN PLATELET VOLUME 8.7 FL (7.4-10.4); MONOCYTES # (AUTO) 0.2 X10'3 (0-0.9); MONOCYTES % (AUTO) 3.1 % (2-12); NEUTROPHILS # (AUTO) 6.9 X10'3 (1.8-7.7); NEUTROPHILS % (AUTO) 94.3 % (42-75); PLATELET COUNT 136 X10'3 (140-440); RED BLOOD COUNT 2.47 X10'6 (4.70-6.10); RED CELL DISTRIBUTION WIDTH 19.6 % (11.5-14.5); WHITE BLOOD COUNT 7.3 X10'3 (4.5-11.0)
[2021-12-19 07:28] LABS: ALANINE AMINOTRANSFERASE 24 U/L (12-78); ALBUMIN 3.3 G/DL (3.4-5.0); ALBUMIN/GLOBULIN RATIO 0.9 (1.1-1.5); ALKALINE PHOSPHATASE 70 IU/L (46-116); ANION GAP 5 (8-16); ASPARTATE AMINO TRANSFERASE 19 U/L (10-37); BILIRUBIN,TOTAL 0.5 MG/DL (0.1-1.0); BLOOD UREA NITROGEN 22 MG/DL (7-18); BUN/CREATININE RATIO 20.6 (5.4-32.0); CALCIUM 8.8 MG/DL (8.5-10.1); CHLORIDE 94 MMOL/L (99-107); CREATININE 1.07 MG/DL (0.60-1.10); GLUCOSE 163 MG/DL (70-104); MAGNESIUM 2.4 MG/DL (1.5-2.4); POTASSIUM 3.1 MMOL/L (3.5-5.1); SODIUM 138 MMOL/L (135-145); TOTAL CARBON DIOXIDE 39.5 MMOL/L (24-32); eGFR 68 ML/MIN
[2021-12-19] MEDS: K and/or MAG REPLACEMENT MC SCH ×2 (08:00→19:20)
[2021-12-19] MEDS: levoTHYROXINE 75mcg tablet PO SCH (08:25)
[2021-12-19] MEDS: ranolazine 500mg SR tablet (Q12H) PO SCH ×2 (08:26→19:54)
[2021-12-19] MEDS: ticagrelor 90mg tablet PO SCH ×2 (08:26→19:54)
[2021-12-19] MEDS: furosemide 40mg/4ml inj IV SCH ×3 (08:26→21:09)
[2021-12-19] MEDS: pantoprazole 40mg Tablet.DR PO SCH ×2 (08:26→19:54)
[2021-12-19] MEDS: aspirin 81mg, enteric-coated 1 TAB TABLET.DR PO SCH (08:26)
[2021-12-19] MEDS: amLODIPine 5mg tablet PO SCH (08:26)
[2021-12-19] MEDS: docusate sod 100mg capsule PO SCH ×2 (08:27→19:55)
[2021-12-19] MEDS: famotidine 20mg tablet PO SCH (08:27)
[2021-12-19] MEDS: heparin, porcine 5000 units/ml vial SQ SCH ×2 (08:28→19:54)
[2021-12-19 08:32] LABS: TOTAL CELLS COUNTED 100
[2021-12-19 08:33] LABS: ANISOCYTOSIS 2+; PLATELET ESTIMATE DECREASED; POLYCHROMASIA 1+; SCHISTOCYTES FEW; STOMATOCYTES 1+
[2021-12-19] MEDS: acetaZOLAMIDE IV 500mg inj IV SCH (08:37)
[2021-12-19] MEDS: CefTRIAXone/D5W-Rocephin 1gm 50 ML IV SCH (08:38)
[2021-12-19] MEDS: finasteride 5mg tablet PO SCH (08:41)
[2021-12-19] MEDS: allopurinol 300 MG tablet PO SCH (08:43)
[2021-12-19] MEDS: potassium Cl 20 mEq SR tablet PO PRN ×3 (10:03→18:50)
[2021-12-19 11:00] VITALS: BP 127/58
[2021-12-19 15:00] VITALS: BP 143/67
[2021-12-19 18:00] VITALS: BP 143/67
[2021-12-19] MEDS: oxyCODONE/APAP 5-325mg tablet PO PRN (18:05)
[2021-12-19] MEDS: sertraline 50mg tablet PO SCH (21:09)
[2021-12-19] MEDS: temazepam 15mg capsule PO PRN (21:12)
--- NOTE | 2021-12-19 21:12 | NUR ---
Charge nurse, Regina Liang made aware that i could not scan the Restor[place] because the package was wet; she witness the med was administered to pt.
[2021-12-19 22:00] VITALS: BP 143/71
[2021-12-20 02:00] VITALS: BP 168/79
[2021-12-20] MEDS: oxyCODONE/APAP 5-325mg tablet PO PRN ×3 (02:46→18:16)
[2021-12-20] MEDS: ipratropium/albuterol 3ml nebule NEB SCH ×6 (03:13→22:54)
[2021-12-20 05:17] LABS: BASOPHILS % (AUTO) 0 % (0-1); EOSINOPHILS % (AUTO) 0.1 % (0-6); HEMATOCRIT 26.6 % (42.0-52.0); HEMOGLOBIN 8.7 g/dl (14.0-17.9); LYMPHOCYTES # (AUTO) 0.2 X10'3 (1.1-4.8); LYMPHOCYTES % (AUTO) 3.1 % (21-51); MEAN CORPUSCULAR HEMOGLOBIN 32.2 PG (27.0-31.0); MEAN CORPUSCULAR HGB CONC 32.8 g/dL (33.0-36.5); MEAN CORPUSCULAR VOLUME 98.2 FL (78-98); MONOCYTES # (AUTO) 0.4 X10'3 (0-0.9); MONOCYTES % (AUTO) 5.6 % (2-12); NEUTROPHILS # (AUTO) 7.1 X10'3 (1.8-7.7); NEUTROPHILS % (AUTO) 91.2 % (42-75); PLATELET COUNT 148 X10'3 (140-440); RED BLOOD COUNT 2.71 X10'6 (4.70-6.10); RED CELL DISTRIBUTION WIDTH 20.1 % (11.5-14.5); WHITE BLOOD COUNT 7.8 X10'3 (4.5-11.0)
[2021-12-20 05:43] LABS: ALANINE AMINOTRANSFERASE 24 U/L (12-78); ALBUMIN 3.2 G/DL (3.4-5.0); ALBUMIN/GLOBULIN RATIO 0.9 (1.1-1.5); ALKALINE PHOSPHATASE 66 IU/L (46-116); ANION GAP 5 (8-16); ASPARTATE AMINO TRANSFERASE 22 U/L (10-37); BILIRUBIN,TOTAL 0.6 MG/DL (0.1-1.0); BLOOD UREA NITROGEN 22 MG/DL (7-18); BUN/CREATININE RATIO 20.2 (5.4-32.0); CALCIUM 8.7 MG/DL (8.5-10.1); CHLORIDE 97 MMOL/L (99-107); CREATININE 1.09 MG/DL (0.60-1.10); GLUCOSE 186 MG/DL (70-104); MAGNESIUM 2.4 MG/DL (1.5-2.4); POTASSIUM 3.2 MMOL/L (3.5-5.1); SODIUM 138 MMOL/L (135-145); TOTAL CARBON DIOXIDE 35.9 MMOL/L (24-32); TOTAL PROTEIN 6.8 G/DL (6.4-8.2); eGFR 66 ML/MIN
[2021-12-20 06:00] VITALS: BP 142/72
[2021-12-20 06:33] LABS: ANISOCYTOSIS 3+; NUCLEATED RED BLOOD CELLS 1 /100WBC (0-0); PLATELET ESTIMATE NORMAL; TOTAL CELLS COUNTED 100; TOXIC GRANULATION 2+
[2021-12-20 06:34] LABS: POLYCHROMASIA FEW
[2021-12-20] MEDS: K and/or MAG REPLACEMENT MC SCH ×2 (08:00→19:50)
[2021-12-20] MEDS: famotidine 20mg tablet PO SCH (08:40)
[2021-12-20] MEDS: aspirin 81mg, enteric-coated 1 TAB TABLET.DR PO SCH (08:40)
[2021-12-20] MEDS: docusate sod 100mg capsule PO SCH ×2 (08:45→19:36)
[2021-12-20] MEDS: amLODIPine 5mg tablet PO SCH (08:45)
[2021-12-20] MEDS: predniSONE 20 mg tablet PO SCH (09:02)
[2021-12-20] MEDS: furosemide 40mg/4ml inj IV SCH ×3 (09:03→20:46)
[2021-12-20] MEDS: ranolazine 500mg SR tablet (Q12H) PO SCH ×2 (09:03→19:34)
[2021-12-20] MEDS: levoTHYROXINE 75mcg tablet PO SCH (09:03)
[2021-12-20] MEDS: heparin, porcine 5000 units/ml vial SQ SCH ×2 (09:05→19:35)
[2021-12-20] MEDS: allopurinol 300 MG tablet PO SCH (09:53)
[2021-12-20] MEDS: finasteride 5mg tablet PO SCH (09:53)
[2021-12-20] MEDS: acetaZOLAMIDE IV 500mg inj IV SCH (09:54)
[2021-12-20] MEDS: CefTRIAXone/D5W-Rocephin 1gm 50 ML IV SCH (09:55)
[2021-12-20] MEDS: ticagrelor 90mg tablet PO SCH ×2 (10:00→19:35)
[2021-12-20] MEDS ORDERED: LORazepam 1 MG tablet PO PRN (10:40)
[2021-12-20 11:00] VITALS: BP 142/69
[2021-12-20] MEDS: pantoprazole 40mg Tablet.DR PO SCH ×2 (12:06→19:36)
[2021-12-20 15:00] VITALS: BP 126/73
[2021-12-20] MEDS ORDERED: potassium CL 10mEq/100ml bag 100 ML IV PRN (15:30)
[2021-12-20] MEDS ORDERED: potassium Cl 20 mEq SR tablet PO PRN (15:30)
[2021-12-20] MEDS ORDERED: magnesium Cl slow-release 64mg tablet PO PRN (15:30)
[2021-12-20] MEDS ORDERED: magnesium 4gm in 100ml NS 100 ML IV PRN (15:30)
[2021-12-20] MEDS: potassium Cl 20 mEq SR tablet PO PRN ×2 (15:42→19:41)
[2021-12-20 18:00] VITALS: BP 123/63
[2021-12-20] MEDS: temazepam 15mg capsule PO PRN (20:46)
[2021-12-20] MEDS: sertraline 50mg tablet PO SCH (20:48)
[2021-12-20 22:00] VITALS: BP 131/66
--- NOTE | 2021-12-20 22:00 | NUR ---
PM care and linen change offered; pt refused. Pt respiratory status unchanged.
[2021-12-21] VITALS (7 sets, daily range): BP systolic 122–162; BP diastolic 61–87
[2021-12-21] MEDS: potassium Cl 20 mEq SR tablet PO PRN ×2 (00:34→16:50)
[2021-12-21] MEDS: oxyCODONE/APAP 5-325mg tablet PO PRN ×4 (00:34→20:35)
[2021-12-21] MEDS: ipratropium/albuterol 3ml nebule NEB SCH ×6 (03:59→22:59)
--- NOTE | 2021-12-21 06:00 | NUR ---
Pt is still on BIPAP; saturating well. No respiratory distress noted nor reported during the night
[2021-12-21 06:32] LABS: BASOPHILS % (AUTO) 0 % (0-1); EOSINOPHILS % (AUTO) 0.5 % (0-6); HEMATOCRIT 27.9 % (42.0-52.0); HEMOGLOBIN 9.3 g/dl (14.0-17.9); LYMPHOCYTES # (AUTO) 0.4 X10'3 (1.1-4.8); LYMPHOCYTES % (AUTO) 4.5 % (21-51); MEAN CORPUSCULAR HEMOGLOBIN 32.5 PG (27.0-31.0); MEAN CORPUSCULAR HGB CONC 33.5 g/dL (33.0-36.5); MEAN PLATELET VOLUME 8.5 FL (7.4-10.4); MONOCYTES # (AUTO) 0.7 X10'3 (0-0.9); MONOCYTES % (AUTO) 8.5 % (2-12); NEUTROPHILS % (AUTO) 86.5 % (42-75); PLATELET COUNT 145 X10'3 (140-440); RED BLOOD COUNT 2.87 X10'6 (4.70-6.10); RED CELL DISTRIBUTION WIDTH 20.1 % (11.5-14.5)
[2021-12-21 06:36] LABS: ALANINE AMINOTRANSFERASE 25 U/L (12-78); ALBUMIN 3.4 G/DL (3.4-5.0); ALKALINE PHOSPHATASE 66 IU/L (46-116); ANION GAP 4 (8-16); ASPARTATE AMINO TRANSFERASE 25 U/L (10-37); BILIRUBIN,TOTAL 0.6 MG/DL (0.1-1.0); BLOOD UREA NITROGEN 24 MG/DL (7-18); BUN/CREATININE RATIO 24.5 (5.4-32.0); CALCIUM 8.8 MG/DL (8.5-10.1); CHLORIDE 100 MMOL/L (99-107); CREATININE 0.98 MG/DL (0.60-1.10); GLUCOSE 122 MG/DL (70-104); MAGNESIUM 2.5 MG/DL (1.5-2.4); POTASSIUM 3.4 MMOL/L (3.5-5.1); SODIUM 141 MMOL/L (135-145); TOTAL CARBON DIOXIDE 36.8 MMOL/L (24-32); TOTAL PROTEIN 6.8 G/DL (6.4-8.2); eGFR 75 ML/MIN
[2021-12-21 07:05] LABS: ANISOCYTOSIS 3+; NUCLEATED RED BLOOD CELLS 1 /100WBC (0-0); PLATELET ESTIMATE NORMAL; TOTAL CELLS COUNTED 100
[2021-12-21] MEDS: K and/or MAG REPLACEMENT MC SCH ×2 (08:00→20:00)
[2021-12-21] MEDS: predniSONE 20 mg tablet PO SCH (08:36)
[2021-12-21] MEDS: heparin, porcine 5000 units/ml vial SQ SCH ×2 (08:37→20:30)
[2021-12-21] MEDS: ticagrelor 90mg tablet PO SCH ×2 (08:37→20:29)
[2021-12-21] MEDS: levoTHYROXINE 75mcg tablet PO SCH (08:37)
[2021-12-21] MEDS: ranolazine 500mg SR tablet (Q12H) PO SCH ×2 (08:37→20:29)
[2021-12-21] MEDS: docusate sod 100mg capsule PO SCH ×2 (08:38→20:29)
[2021-12-21] MEDS: furosemide 40mg/4ml inj IV SCH ×3 (08:38→20:30)
[2021-12-21] MEDS: aspirin 81mg, enteric-coated 1 TAB TABLET.DR PO SCH (08:39)
[2021-12-21] MEDS: amLODIPine 5mg tablet PO SCH (08:39)
[2021-12-21] MEDS: CefTRIAXone/D5W-Rocephin 1gm 50 ML IV SCH (08:39)
[2021-12-21] MEDS: famotidine 20mg tablet PO SCH (08:39)
[2021-12-21] MEDS: pantoprazole 40mg Tablet.DR PO SCH ×2 (08:46→20:29)
[2021-12-21] MEDS: acetaZOLAMIDE IV 500mg inj IV SCH (08:49)
[2021-12-21] MEDS: allopurinol 300 MG tablet PO SCH (08:50)
[2021-12-21] MEDS: finasteride 5mg tablet PO SCH (08:50)
[2021-12-21 13:03] LABS: ABG OXYGEN SATURATION 92.5 % (94-97); ABG PCO2 (T) 55.6 mmHg (35.0-48.0); ABG PO2 (T) 66.9 mmHg (75.0-100.0); ALLEN'S TEST POSITIVE; FCOHb 0.6 % (0.0-3.9); FMetHb 0.2 % (0.0-1.5); FO2Hb 91.8 % (94-97); RESPIRATORY RATE 16 b/min; TOTAL HEMOGLOBIN 10.6 G/dl (14.0-18.0)
[2021-12-21] MEDS ORDERED: PERFLUTREN PROTEIN-A MICROSPHR (Optison) 0.22 MG/ML 3ML VIAL IV ONE (15:55)
[2021-12-21 16:28] LABS: CHOL/HDL RATIO 3.8 (0.00-4.99); CHOLESTEROL 150 MG/DL (0-200); HDL CHOLESTEROL 39 MG/DL (35-60); LDL CHOLESTEROL 73 MG/DL (50-100); TRIGLYCERIDES 209 MG/DL (20-135)
[2021-12-21] MEDS: sertraline 50mg tablet PO SCH (20:30)
[2021-12-21] MEDS: temazepam 15mg capsule PO PRN (20:40)
[2021-12-22] VITALS (7 sets, daily range): BP systolic 136–164; BP diastolic 63–89
[2021-12-22] MEDS: ipratropium/albuterol 3ml nebule NEB SCH ×6 (02:48→23:39)
[2021-12-22] MEDS: oxyCODONE/APAP 5-325mg tablet PO PRN ×4 (03:34→20:16)
[2021-12-22 06:17] LABS: BASOPHILS % (AUTO) 0.1 % (0-1); EOSINOPHILS # (AUTO) 0.1 X10'3 (0-0.9); EOSINOPHILS % (AUTO) 0.7 % (0-6); HEMATOCRIT 28.8 % (42.0-52.0); HEMOGLOBIN 9.6 g/dl (14.0-17.9); LYMPHOCYTES # (AUTO) 0.4 X10'3 (1.1-4.8); LYMPHOCYTES % (AUTO) 4.9 % (21-51); MEAN CORPUSCULAR HEMOGLOBIN 32.7 PG (27.0-31.0); MEAN CORPUSCULAR HGB CONC 33.5 g/dL (33.0-36.5); MEAN CORPUSCULAR VOLUME 97.6 FL (78-98); MEAN PLATELET VOLUME 8.7 FL (7.4-10.4); MONOCYTES # (AUTO) 0.5 X10'3 (0-0.9); MONOCYTES % (AUTO) 6.5 % (2-12); NEUTROPHILS # (AUTO) 7.1 X10'3 (1.8-7.7); NEUTROPHILS % (AUTO) 87.8 % (42-75); PLATELET COUNT 150 X10'3 (140-440); RED BLOOD COUNT 2.95 X10'6 (4.70-6.10); RED CELL DISTRIBUTION WIDTH 20.4 % (11.5-14.5); WHITE BLOOD COUNT 8.1 X10'3 (4.5-11.0)
[2021-12-22 06:34] LABS: ALANINE AMINOTRANSFERASE 25 U/L (12-78); ALBUMIN 3.3 G/DL (3.4-5.0); ALKALINE PHOSPHATASE 61 IU/L (46-116); ANION GAP 7 (8-16); ASPARTATE AMINO TRANSFERASE 23 U/L (10-37); BILIRUBIN,TOTAL 0.7 MG/DL (0.1-1.0); BLOOD UREA NITROGEN 25 MG/DL (7-18); BUN/CREATININE RATIO 21.9 (5.4-32.0); CALCIUM 8.4 MG/DL (8.5-10.1); CHLORIDE 101 MMOL/L (99-107); CREATININE 1.14 MG/DL (0.60-1.10); GLUCOSE 145 MG/DL (70-104); POTASSIUM 3.5 MMOL/L (3.5-5.1); SODIUM 141 MMOL/L (135-145); TOTAL CARBON DIOXIDE 33.4 MMOL/L (24-32); TOTAL PROTEIN 6.6 G/DL (6.4-8.2); eGFR 63 ML/MIN
[2021-12-22 07:37] LABS: ANISOCYTOSIS 3+; PLATELET ESTIMATE NORMAL; TOTAL CELLS COUNTED 100
[2021-12-22 07:38] LABS: TOXIC GRANULATION 2+
[2021-12-22 07:39] LABS: POLYCHROMASIA 1+
[2021-12-22 07:41] LABS: ELLIPTOCYTES FEW; TEAR DROP CELLS 1+
[2021-12-22] MEDS: K and/or MAG REPLACEMENT MC SCH ×2 (08:00→19:36)
[2021-12-22] MEDS: acetaZOLAMIDE IV 500mg inj IV SCH (08:36)
[2021-12-22] MEDS: finasteride 5mg tablet PO SCH (08:37)
[2021-12-22] MEDS: furosemide 40mg/4ml inj IV SCH ×3 (08:37→19:44)
[2021-12-22] MEDS: ticagrelor 90mg tablet PO SCH ×2 (08:37→19:44)
[2021-12-22] MEDS: allopurinol 300 MG tablet PO SCH (08:37)
[2021-12-22] MEDS: docusate sod 100mg capsule PO SCH ×2 (08:37→19:45)
[2021-12-22] MEDS: atorvastatin 20mg tablet PO SCH (08:38)
[2021-12-22] MEDS: heparin, porcine 5000 units/ml vial SQ SCH ×2 (08:38→19:45)
[2021-12-22] MEDS: amLODIPine 5mg tablet PO SCH (08:40)
[2021-12-22] MEDS: famotidine 20mg tablet PO SCH (08:40)
[2021-12-22] MEDS: levoTHYROXINE 75mcg tablet PO SCH (08:41)
[2021-12-22] MEDS: ranolazine 500mg SR tablet (Q12H) PO SCH ×2 (08:41→19:45)
[2021-12-22] MEDS: CefTRIAXone/D5W-Rocephin 1gm 50 ML IV SCH (08:41)
[2021-12-22] MEDS: aspirin 81mg, enteric-coated 1 TAB TABLET.DR PO SCH (08:42)
[2021-12-22] MEDS: pantoprazole 40mg Tablet.DR PO SCH ×2 (08:42→19:44)
[2021-12-22] MEDS: predniSONE 20 mg tablet PO SCH (08:42)
--- NOTE | 2021-12-22 15:13 | NUR ---
Initial: Pt admit dx acute respiratory failure with hypercapnia/hypoxemia, CHF, and COPD per EMR. Pt is on 4.0L HFNC, currently on Heart Healthy and 1.5L fluid restriction diet w/ 65% avg PO meals, and 100% last five meals partially meeting estimated nutrient needs. Pt current ht 131in likely inaccurate, ht hx 71in per past visits used to determine BMI. LBM 3/2, though no reported constipation per nursing documentation. No nutrition intervention implemented at this time. Will continue to follow. Recommendations: 1. Continue Heart Healthy/1.5L fluid restriction diet per MD 2. Monitor need for ONS 3. Bowel care per RX 4. Weekly scaled wts Addendum: 12/22/21 at [address] Amended: Links added. Addendum: 12/22/21 at [address] I have reviewed assessment by internal wholesaler
[2021-12-22] MEDS: sertraline 50mg tablet PO SCH (20:17)
[2021-12-22] MEDS: temazepam 15mg capsule PO PRN (22:07)
[2021-12-23 02:00] VITALS: BP 165/80
[2021-12-23] MEDS: oxyCODONE/APAP 5-325mg tablet PO PRN ×5 (02:27→22:56)
[2021-12-23] MEDS: ipratropium/albuterol 3ml nebule NEB SCH ×6 (03:20→23:00)
[2021-12-23 06:00] VITALS: BP 147/76
--- NOTE | 2021-12-23 06:13 | NUR ---
Problems reprioritized. Patient report given, questions answered & plan of care reviewed with Maggie RN.
[2021-12-23] MEDS: levoTHYROXINE 75mcg tablet PO SCH (07:04)
[2021-12-23] MEDS: aspirin 81mg, enteric-coated 1 TAB TABLET.DR PO SCH (07:04)
[2021-12-23] MEDS: ticagrelor 90mg tablet PO SCH ×2 (07:05→19:24)
[2021-12-23] MEDS: allopurinol 300 MG tablet PO SCH (07:05)
[2021-12-23] MEDS: atorvastatin 20mg tablet PO SCH (07:05)
[2021-12-23] MEDS: docusate sod 100mg capsule PO SCH ×2 (07:05→19:25)
[2021-12-23] MEDS: predniSONE 20 mg tablet PO SCH (07:05)
[2021-12-23] MEDS: furosemide 40mg/4ml inj IV SCH ×2 (07:05→19:24)
[2021-12-23] MEDS: famotidine 20mg tablet PO SCH (07:06)
[2021-12-23] MEDS: ranolazine 500mg SR tablet (Q12H) PO SCH ×2 (07:06→19:24)
[2021-12-23] MEDS: amLODIPine 5mg tablet PO SCH (07:06)
[2021-12-23] MEDS: heparin, porcine 5000 units/ml vial SQ SCH (07:07)
[2021-12-23] MEDS: K and/or MAG REPLACEMENT MC SCH ×2 (08:00→19:40)
[2021-12-23 11:00] VITALS: BP 124/58
[2021-12-23] MEDS: acetaZOLAMIDE IV 500mg inj IV SCH (11:01)
[2021-12-23] MEDS: CefTRIAXone/D5W-Rocephin 1gm 50 ML IV SCH (11:02)
[2021-12-23] MEDS: pantoprazole 40mg Tablet.DR PO SCH ×2 (11:21→19:24)
[2021-12-23] MEDS: finasteride 5mg tablet PO SCH (11:21)
[2021-12-23 15:00] VITALS: BP 132/72
[2021-12-23 18:00] VITALS: BP 102/45
--- NOTE | 2021-12-23 19:05 | NUR ---
Problems reprioritized. Patient report given, questions answered & plan of care reviewed with Karina/RN.
[2021-12-23] MEDS: apixaban 5mg tablet PO SCH (19:24)
[2021-12-23] MEDS: sertraline 50mg tablet PO SCH (20:16)
[2021-12-23] MEDS: temazepam 15mg capsule PO PRN (20:16)
[2021-12-23 22:00] VITALS: BP 147/76
[2021-12-24 02:00] VITALS: BP 102/45
[2021-12-24] MEDS: ipratropium/albuterol 3ml nebule NEB SCH ×3 (02:49→11:00)
[2021-12-24] MEDS: oxyCODONE/APAP 5-325mg tablet PO PRN ×3 (05:02→14:28)
[2021-12-24 06:18] LABS: BASOPHILS % (AUTO) 0.1 % (0-1); EOSINOPHILS # (AUTO) 0.1 X10'3 (0-0.9); EOSINOPHILS % (AUTO) 1.3 % (0-6); HEMATOCRIT 30.8 % (42.0-52.0); LYMPHOCYTES # (AUTO) 0.5 X10'3 (1.1-4.8); LYMPHOCYTES % (AUTO) 5.8 % (21-51); MEAN CORPUSCULAR HEMOGLOBIN 32.1 PG (27.0-31.0); MEAN CORPUSCULAR HGB CONC 32.5 g/dL (33.0-36.5); MEAN CORPUSCULAR VOLUME 98.9 FL (78-98); MONOCYTES # (AUTO) 0.6 X10'3 (0-0.9); MONOCYTES % (AUTO) 6.7 % (2-12); NEUTROPHILS % (AUTO) 86.1 % (42-75); PLATELET COUNT 142 X10'3 (140-440); RED BLOOD COUNT 3.12 X10'6 (4.70-6.10); RED CELL DISTRIBUTION WIDTH 20.6 % (11.5-14.5); WHITE BLOOD COUNT 9.3 X10'3 (4.5-11.0)
--- NOTE | 2021-12-24 06:28 | NUR ---
Problems reprioritized. Patient report given, questions answered & plan of care reviewed with Lara GOMEZ.
[2021-12-24 06:30] LABS: ALANINE AMINOTRANSFERASE 37 U/L (12-78); ALBUMIN 3.3 G/DL (3.4-5.0); ALKALINE PHOSPHATASE 61 IU/L (46-116); ANION GAP 6 (8-16); ASPARTATE AMINO TRANSFERASE 26 U/L (10-37); BILIRUBIN,TOTAL 0.6 MG/DL (0.1-1.0); BLOOD UREA NITROGEN 28 MG/DL (7-18); CALCIUM 8.1 MG/DL (8.5-10.1); CHLORIDE 100 MMOL/L (99-107); GLUCOSE 121 MG/DL (70-104); POTASSIUM 3.7 MMOL/L (3.5-5.1); SODIUM 140 MMOL/L (135-145); TOTAL CARBON DIOXIDE 34.3 MMOL/L (24-32); TOTAL PROTEIN 6.6 G/DL (6.4-8.2); eGFR 73 ML/MIN
[2021-12-24 07:00] VITALS: BP 125/77
[2021-12-24 07:32] LABS: ANISOCYTOSIS 3+; PLATELET ESTIMATE NORMAL; TOTAL CELLS COUNTED 100
[2021-12-24 07:33] LABS: ELLIPTOCYTES 1+; POLYCHROMASIA FEW
[2021-12-24 07:34] LABS: TOXIC GRANULATION 2+
[2021-12-24] MEDS: ticagrelor 90mg tablet PO SCH (07:48)
[2021-12-24] MEDS: atorvastatin 20mg tablet PO SCH (07:48)
[2021-12-24] MEDS: aspirin 81mg, enteric-coated 1 TAB TABLET.DR PO SCH (07:49)
[2021-12-24] MEDS: ranolazine 500mg SR tablet (Q12H) PO SCH (07:49)
[2021-12-24] MEDS: allopurinol 300 MG tablet PO SCH (07:49)
[2021-12-24] MEDS: famotidine 20mg tablet PO SCH (07:49)
[2021-12-24 07:50] VITALS: BP_SYST 125
[2021-12-24] MEDS: apixaban 5mg tablet PO SCH (07:50)
[2021-12-24] MEDS: amLODIPine 5mg tablet PO SCH (07:50)
[2021-12-24] MEDS: predniSONE 20 mg tablet PO SCH (07:50)
[2021-12-24] MEDS: levoTHYROXINE 75mcg tablet PO SCH (07:50)
[2021-12-24] MEDS: docusate sod 100mg capsule PO SCH (07:51)
[2021-12-24] MEDS: pantoprazole 40mg Tablet.DR PO SCH (07:51)
[2021-12-24] MEDS: furosemide 40mg/4ml inj IV SCH (07:51)
[2021-12-24] MEDS: finasteride 5mg tablet PO SCH (07:51)
[2021-12-24] MEDS: CefTRIAXone/D5W-Rocephin 1gm 50 ML IV SCH (07:52)
[2021-12-24] MEDS: K and/or MAG REPLACEMENT MC SCH (08:00)
[2021-12-24] MEDS: acetaZOLAMIDE IV 500mg inj IV SCH (09:57)
[2021-12-24] MEDS ORDERED: HYDR-3965 PO (12:42)
[2021-12-24] MEDS ORDERED: APIX5TAB3 PO (12:42)
[2021-12-24] MEDS ORDERED: PRED10TA23 PO (12:49)
--- NOTE | 2021-12-24 15:48 | NUR ---
Discharged patient home, in stable condition, via w/c with oxygen, accompanied by ex-.
== END 2021-12-24 15:53 | disposition home health service (06) | DRG 189 ==
LOC: ER 09:02 → ED HOLD 13:47 → PCU 3S 16:22
PROVIDERS: ADMIT Family Medicine; ATTEND Family Medicine
PROC: 5A09457 Assistance with Respiratory Ventilation, 24-96 Consecutive Hours, Continuous Positive Airway Pressure (ICD-10-PCS; principal; 2021-12-17)
PROC: 5A09357 Assistance with Respiratory Ventilation, Less than 24 Consecutive Hours, Continuous Positive Airway Pressure (ICD-10-PCS; 2021-12-21)
PROC: 5A09357 Assistance with Respiratory Ventilation, Less than 24 Consecutive Hours, Continuous Positive Airway Pressure (ICD-10-PCS; 2021-12-23)
PROC: 5A09357 Assistance with Respiratory Ventilation, Less than 24 Consecutive Hours, Continuous Positive Airway Pressure (ICD-10-PCS; 2021-12-24)
DX: J96.21 Acute and chronic respiratory failure with hypoxia (principal); I50.33 Acute on chronic diastolic (congestive) heart failure; G93.41 Metabolic encephalopathy; I48.92 Unspecified atrial flutter; E66.2 Morbid (severe) obesity with alveolar hypoventilation; J44.1 Chronic obstructive pulmonary disease with (acute) exacerbation; J96.22 Acute and chronic respiratory failure with hypercapnia; I27.20 Pulmonary hypertension, unspecified; E03.9 Hypothyroidism, unspecified; E78.00 Pure hypercholesterolemia, unspecified; M10.9 Gout, unspecified; D63.8 Anemia in other chronic diseases classified elsewhere; K59.00 Constipation, unspecified; F41.1 Generalized anxiety disorder; M54.9 Dorsalgia, unspecified; E78.5 Hyperlipidemia, unspecified; I48.91 Unspecified atrial fibrillation; F32.A Depression, unspecified; G89.29 Other chronic pain; I25.10 Atherosclerotic heart disease of native coronary artery without angina pectoris; I25.2 Old myocardial infarction; Z79.891 Long term (current) use of opiate analgesic; Z86.73 Personal history of transient ischemic attack (TIA), and cerebral infarction without residual deficits; Z87.442 Personal history of urinary calculi; Z95.1 Presence of aortocoronary bypass graft; Z95.5 Presence of coronary angioplasty implant and graft; Z99.81 Dependence on supplemental oxygen
CPT/HCPCS: 36415; 36600; 71045; 80053; 80061; 82803; 83735; 83880; 84132; 84443; 84484; 85007; 85008; 85018; 85025; 87081; 93005; 93306; 94640; 94660; 94760; 96374; 96375; 97110; 97161; 97530; 99291; 99292; G0378; J0696; J1120; J1644; J1940; J2930; J7512; Q0163

== ENCOUNTER 2022-01-10 20:21 | Emergency (ER) | payer OTHER, MEDICARE ==
[~2022-01-10] VITALS: Ht 180.3 cm; Wt 128.2 kg
[~2022-01-10 20:21] MED LIST changes: -ALBU2.5V13 NEB; +APIX5TAB3 PO; +ATR0.5NEB IH; +DOCU100C40 PO; +FAMO20TA8 PO; +FURO-150 PO; +HYDR-3965 PO; +HYDR-3972 PO; +LACTC PO; -METO100T14 PO; +POTA-82 PO; +PRED10TA23 PO; -PRED1TAB PO; +SERT-433 PO; -TERA5CAP4 PO; -TICA90TA PO; -[UNRECOGNIZED DRUG - CODE] TP
[2022-01-10] MEDS ORDERED: APIX5TAB3 PO (20:44)
[2022-01-10 20:55] LABS: BASOPHILS % (AUTO) 0.5 % (0-1); HEMATOCRIT 26.1 % (42.0-52.0); HEMOGLOBIN 8.7 g/dl (14.0-17.9); LYMPHOCYTES # (AUTO) 0.2 X10'3 (1.1-4.8); LYMPHOCYTES % (AUTO) 4.4 % (21-51); MEAN CORPUSCULAR HEMOGLOBIN 31.9 PG (27.0-31.0); MEAN CORPUSCULAR HGB CONC 33.2 g/dL (33.0-36.5); MEAN PLATELET VOLUME 8.4 FL (7.4-10.4); MONOCYTES # (AUTO) 0.3 X10'3 (0-0.9); MONOCYTES % (AUTO) 5.7 % (2-12); NEUTROPHILS # (AUTO) 4.2 X10'3 (1.8-7.7); NEUTROPHILS % (AUTO) 88.4 % (42-75); PLATELET COUNT 146 X10'3 (140-440); RED BLOOD COUNT 2.72 X10'6 (4.70-6.10); RED CELL DISTRIBUTION WIDTH 19.9 % (11.5-14.5); WHITE BLOOD COUNT 4.7 X10'3 (4.5-11.0)
[2022-01-10 21:18] LABS: ALANINE AMINOTRANSFERASE 26 U/L (12-78); ALBUMIN 3.5 G/DL (3.4-5.0); ALBUMIN/GLOBULIN RATIO 1.1 (1.1-1.5); ALKALINE PHOSPHATASE 75 IU/L (46-116); ANION GAP 7 (8-16); ASPARTATE AMINO TRANSFERASE 23 U/L (10-37); BILIRUBIN,TOTAL 0.8 MG/DL (0.1-1.0); BLOOD UREA NITROGEN 20 MG/DL (7-18); BUN/CREATININE RATIO 18.5 (5.4-32.0); CALCIUM 8.7 MG/DL (8.5-10.1); CHLORIDE 96 MMOL/L (99-107); CREATININE 1.08 MG/DL (0.60-1.10); GLUCOSE 140 MG/DL (70-104); POTASSIUM 3.9 MMOL/L (3.5-5.1); SODIUM 138 MMOL/L (135-145); TOTAL CARBON DIOXIDE 35.2 MMOL/L (24-32); TOTAL PROTEIN 6.7 G/DL (6.4-8.2); eGFR 67 ML/MIN
--- NOTE | 2022-01-10 21:30 | NUR ---
pt bib ems with c/o sob; states his "nose" is clogged and he can't breathe; SaO2 100% on RA. A/O, nad; skin to his lower ext erythematous, edematous, with serosanguinous - bright red blood drainage; requesting pain meds.
[2022-01-10 22:00] LABS: ANISOCYTOSIS 2+; ELLIPTOCYTES FEW; PLATELET ESTIMATE NORMAL; POLYCHROMASIA FEW; STOMATOCYTES FEW; TEAR DROP CELLS FEW
[2022-01-10] MEDS ORDERED: albuterol 2.5 MG/3 ML nebule NEB ONE (23:25)
[2022-01-10] MEDS ORDERED: aspirin 325mg tablet PO ONE (23:25)
[2022-01-10 23:46] LABS: ABG BASE EXCESS 10.5 mmol/L (-2.0-2.0); ABG HCO3 37.3 mmol/L (22.0-26.0); ABG OXYGEN SATURATION 96.6 % (94-97); ABG PCO2 (T) 63.8 mmHg (35.0-48.0); ABG PO2 (T) 96.4 mmHg (75.0-100.0); ALLEN'S TEST POSITIVE; FCOHb 0.2 % (0.0-3.9); FLOW 6 L/min; FMetHb 0.6 % (0.0-1.5); FO2Hb 95.8 % (94-97); TOTAL HEMOGLOBIN 9.8 G/dl (14.0-18.0)
[2022-01-10] MEDS ORDERED: dexamethasone sod phosphate 10mg/ml inj IV STA (23:56)
[2022-01-11] MEDS ORDERED: oxyCODONE/APAP 5-325mg tablet PO ONE (00:15)
[2022-01-11 02:17] VITALS: BP 121/81
== END 2022-01-11 02:22 | disposition home or self-care (01) ==
LOC: ER 20:21
DX: J44.1 Chronic obstructive pulmonary disease with (acute) exacerbation (principal); Z20.822 Contact with and (suspected) exposure to COVID-19; R53.1 Weakness; I73.9 Peripheral vascular disease, unspecified; I48.91 Unspecified atrial fibrillation; I25.10 Atherosclerotic heart disease of native coronary artery without angina pectoris; E78.00 Pure hypercholesterolemia, unspecified; I25.2 Old myocardial infarction; M19.90 Unspecified osteoarthritis, unspecified site; G89.29 Other chronic pain; Z87.440 Personal history of urinary (tract) infections; Z86.73 Personal history of transient ischemic attack (TIA), and cerebral infarction without residual deficits; Z95.5 Presence of coronary angioplasty implant and graft; Z90.49 Acquired absence of other specified parts of digestive tract; Z79.899 Other long term (current) drug therapy; Z79.82 Long term (current) use of aspirin; Z79.01 Long term (current) use of anticoagulants
CPT/HCPCS: 36415; 36600; 71045; 80053; 82803; 83880; 84484; 85008; 85018; 85025; 87635; 93005; 94640; 96374; 99285; C9803; J1100; 94760; 99284

== ENCOUNTER 2022-01-13 20:18 | Inpatient (IN) | payer OTHER, MEDICARE ==
[~2022-01-13] VITALS: Ht 177.8 cm; Wt 124.9 kg
[~2022-01-13 20:18] MED LIST changes: +etomidate 2mg/ml inj. ONE; +sodium bicarbonate (8.4%) 1 mEq/ml syringe ONE
[2022-01-13] MEDS ORDERED: naloxone 2mg/2ml inj IV ONE (20:20)
[2022-01-13 20:34] LABS: ABG BASE EXCESS 1.8 mmol/L (-2.0-2.0); ABG HCO3 37.1 mmol/L (22.0-26.0); ABG PCO2 (T) > 150.0 mmHg (35.0-48.0); ABG PO2 (T) 95.2 mmHg (75.0-100.0); FCOHb 1.6 % (0.0-3.9); FLOW 15 L/min; FMetHb 0.3 % (0.0-1.5); FO2Hb 91.2 % (94-97); TOTAL HEMOGLOBIN 11.9 G/dl (14.0-18.0)
[2022-01-13 20:44] LABS: BASOPHILS # (AUTO) 0.1 X10'3 (0-0.2); EOSINOPHILS # (AUTO) 0.3 X10'3 (0-0.9)
[2022-01-13] MEDS ORDERED: methylPREDNISolone sod succ 125mg/2ml vial ONE (20:45)
[2022-01-13] MEDS ORDERED: methylPREDNISolone sod succ 125mg/2ml vial IV ONE (20:45)
[2022-01-13 20:46] LABS: BASOPHILS % (AUTO) 0.7 % (0-1); EOSINOPHILS % (AUTO) 1.6 % (0-6); HEMATOCRIT 34.8 % (42.0-52.0); HEMOGLOBIN 10.7 g/dl (14.0-17.9); LYMPHOCYTES # (AUTO) 2.3 X10'3 (1.1-4.8); LYMPHOCYTES % (AUTO) 14.6 % (21-51); MEAN CORPUSCULAR HEMOGLOBIN 30.2 PG (27.0-31.0); MEAN CORPUSCULAR HGB CONC 30.8 g/dL (33.0-36.5); MEAN CORPUSCULAR VOLUME 98.1 FL (78-98); MONOCYTES # (AUTO) 1.7 X10'3 (0-0.9); MONOCYTES % (AUTO) 10.4 % (2-12); NEUTROPHILS # (AUTO) 11.7 X10'3 (1.8-7.7); NEUTROPHILS % (AUTO) 72.7 % (42-75); PLATELET COUNT 368 X10'3 (140-440); RED BLOOD COUNT 3.55 X10'6 (4.70-6.10); RED CELL DISTRIBUTION WIDTH 19.9 % (11.5-14.5)
--- NOTE | 2022-01-13 20:50 | NUR ---
MD AT BEDSIDE TO INTUBATE 2038 50 MEQ BICARB PUSHED 2042 20 MG ETOMIDATE, 100 MG SUCCINYLCHOLINE PUSHED 2042 MD INTUBATING, RT AT BEDSIDE, INTUBATION TUBE AT 25 CM 2045 125 MG SOLUMEDROL PUSHED 2047 X RAY AT BEDSIDE
[2022-01-13] MEDS: propofol 1000mg/100ml bottle 100 ML IV SCH (20:54)
[2022-01-13] MEDS ORDERED: ipratropium/albuterol 3ml nebule NEB ONE (20:55)
[2022-01-13 21:00] LABS: ALANINE AMINOTRANSFERASE 32 U/L (12-78); ALBUMIN 3.7 G/DL (3.4-5.0); ALKALINE PHOSPHATASE 94 IU/L (46-116); ANION GAP 10 (8-16); ASPARTATE AMINO TRANSFERASE 30 U/L (10-37); BLOOD UREA NITROGEN 20 MG/DL (7-18); CALCIUM 8.9 MG/DL (8.5-10.1); CHLORIDE 97 MMOL/L (99-107); CREATININE 1.25 MG/DL (0.60-1.10); GLUCOSE 235 MG/DL (70-104); SODIUM 139 MMOL/L (135-145); TOTAL CARBON DIOXIDE 32.4 MMOL/L (24-32); TOTAL PROTEIN 7.5 G/DL (6.4-8.2); eGFR 57 ML/MIN
--- NOTE | 2022-01-13 21:00 | NUR ---
PROPOFOL STARTED @ 5ML
[2022-01-13 21:02] VITALS: BP 164/80
[2022-01-13 21:09] LABS: TRIGLYCERIDES 163 MG/DL (20-135)
[2022-01-13] MEDS ORDERED: LIDOcaine 2% 10ml TOPICAL JELLY (Urojet) TP ONE ×2 (21:10→21:35)
[2022-01-13 21:13] LABS: ETHANOL < 0.010 GM/DL (0.0-0.010)
[2022-01-13 21:15] LABS: MAGNESIUM 2.5 MG/DL (1.5-2.4)
[2022-01-13] MEDS ORDERED: levoFLOXACIN-Levaquin 750MG/D5 150 ML IV ONE (21:30)
[2022-01-13] MEDS ORDERED: CefTRIAXone 2gm/NS 100ml IVPB 100 ML IV ONE (21:30)
[2022-01-13] MEDS ORDERED: acetaminophen 325mg tablet PO PRN ×2 (21:35)
[2022-01-13] MEDS ORDERED: potassium Cl 20 mEq SR tablet PO PRN ×2 (21:35)
[2022-01-13] MEDS ORDERED: LEVOTHYROXINE SODIUM 100 MCG/5 ML injection IV ONE (21:55)
[2022-01-13] MEDS ORDERED: MIDAZolam 5mg/ml 2ml vial IV ONE (22:00)
[2022-01-13 22:02] LABS: URINE AMPHETAMINE SCREEN NEGATIVE (Neg); URINE BARBITUATE SCREEN NEGATIVE (Neg); URINE BENZODIAZEPINES SCREEN NEGATIVE (Neg); URINE CANNABINOID SCREEN NEGATIVE (Neg); URINE COCAINE SCREEN NEGATIVE (Neg); URINE METHADONE SCREEN POSITIVE (Neg); URINE OPIATE SCREEN NEGATIVE (Neg); URINE PHENCYCLIDINE SCREEN NEGATIVE (Neg)
--- NOTE | 2022-01-13 22:03 | NUR ---
PT PULLED OUT INTUBATION TUBES. RT AT BED SIDE. SPO2 51
--- NOTE | 2022-01-13 22:10 | NUR ---
PT NOW ON BIPAP. SP02 90%
[2022-01-13 22:13] LABS: CLARITY,URINE CLEAR (Clear); COLOR,URINE YELLOW (Yellow); GLUCOSE, URINE NEGATIVE (Neg); KETONES,URINE NEGATIVE (Neg); LEUKOCYTE ESTERASE ,URINE NEGATIVE (Neg); NITRITES, URINE NEGATIVE (Neg); OCCULT BLOOD,URINE NEGATIVE (Neg); PH,URINE 5.5 (4.8-8.0); PROTEIN,URINE 100 mg/dl (Neg)
--- NOTE | 2022-01-13 22:14 | NUR ---
RT AT BEDSIDE. ABG's TO BE DRAWN. BIPAP 100%, SPO2 94%
[2022-01-13 22:16] LABS: UA COLLECTION TYPE CLN CATCH MIDSTREAM
[2022-01-13 22:29] LABS: WBC,URINE 0-4 /HPF (0-4)
[2022-01-13 22:30] LABS: BACTERIA,URINE NONE SEEN /HPF (Neg); RBC,URINE 0-2 /HPF (0-2); RENAL CELLS, URINE FEW /HPF; SQUAMOUS EPITHELIAL CELL,UR FEW /LPF (FEW); TRANSITIONAL EPI CELLS,URINE FEW /HPF
[2022-01-13 22:35] LABS: ABG BASE EXCESS 4.4 mmol/L (-2.0-2.0); ABG HCO3 34.7 mmol/L (22.0-26.0); ABG OXYGEN SATURATION 92.7 % (94-97); ABG PCO2 (T) 88.7 mmHg (35.0-48.0); ABG PO2 (T) 78.1 mmHg (75.0-100.0); FCOHb 1.5 % (0.0-3.9); FMetHb 0.1 % (0.0-1.5); FO2Hb 91.2 % (94-97); PATIENT TEMPERATURE 36.5; TOTAL HEMOGLOBIN 10.9 G/dl (14.0-18.0)
[2022-01-13 22:48] LABS: NUCLEATED RED BLOOD CELLS 2 /100WBC (0-0); TOTAL CELLS COUNTED 100
[2022-01-13 22:52] LABS: ANISOCYTOSIS 2+; PLATELET ESTIMATE NORMAL; POLYCHROMASIA FEW
[2022-01-13 22:53] LABS: ELLIPTOCYTES FEW; TOXIC GRANULATION 1+
[2022-01-14] VITALS (14 sets, daily range): BP systolic 125–154; BP diastolic 61–81
--- NOTE | 2022-01-14 00:43 | NUR ---
patient resting at this time, propofol drip going in at 10 mcg/kg/hr, patient is toleratig well, blood pressure within parameters, patient is currently on a bipap O2s sats @ 93%, monitor technician in place , bed lock and in lowest position, monitor technician in place patient has a romo catheter in place draining yoni colored urine patient has two IV sites, patent clean and dry patients belongings placed in a belongings bag and tagged
--- NOTE | 2022-01-14 01:03 | NUR ---
respiratory at bedside to draw ABGs
[2022-01-14 01:32] LABS: BASOPHILS % (AUTO) 0.2 % (0-1); EOSINOPHILS % (AUTO) 0.1 % (0-6); HEMOGLOBIN 9.4 g/dl (14.0-17.9); LYMPHOCYTES # (AUTO) 0.1 X10'3 (1.1-4.8); LYMPHOCYTES % (AUTO) 1.3 % (21-51); MEAN CORPUSCULAR HEMOGLOBIN 31.4 PG (27.0-31.0); MEAN CORPUSCULAR HGB CONC 32.5 g/dL (33.0-36.5); MEAN CORPUSCULAR VOLUME 96.5 FL (78-98); MEAN PLATELET VOLUME 8.6 FL (7.4-10.4); MONOCYTES # (AUTO) 0.4 X10'3 (0-0.9); MONOCYTES % (AUTO) 4.1 % (2-12); NEUTROPHILS # (AUTO) 9.4 X10'3 (1.8-7.7); NEUTROPHILS % (AUTO) 94.3 % (42-75); PLATELET COUNT 197 X10'3 (140-440); RED CELL DISTRIBUTION WIDTH 19.5 % (11.5-14.5)
[2022-01-14 01:46] LABS: ALBUMIN 3.1 G/DL (3.4-5.0); ANION GAP 5 (8-16); BLOOD UREA NITROGEN 21 MG/DL (7-18); BUN/CREATININE RATIO 18.9 (5.4-32.0); CALCIUM 8.8 MG/DL (8.5-10.1); CHLORIDE 99 MMOL/L (99-107); CREATININE 1.11 MG/DL (0.60-1.10); GLUCOSE 139 MG/DL (70-104); MAGNESIUM 2.4 MG/DL (1.5-2.4); PHOSPHORUS 4.6 MG/DL (2.3-4.5); POTASSIUM 4.5 MMOL/L (3.5-5.1); SODIUM 138 MMOL/L (135-145); TOTAL CARBON DIOXIDE 33.8 MMOL/L (24-32); TRIGLYCERIDES 159 MG/DL (20-135); eGFR 65 ML/MIN
[2022-01-14] MEDS: propofol 1000mg/100ml bottle 100 ML IV SCH (04:10)
--- NOTE | 2022-01-14 04:11 | NUR ---
Patient given new bottle of Propofol. Drip continued at 9mls (10mcg) an hour.
--- NOTE | 2022-01-14 04:35 | NUR ---
Engineer System Administrator (Dr. Purdy) called and talked to regarding patient's continued time on Propofol. Provider dc'd Propofol. Propofol will be weaned off.
--- NOTE | 2022-01-14 05:01 | NUR ---
Patient has been weaned off Propofol and restraints dc'd. Patient alert and oriented and able to follow commands.
[2022-01-14] MEDS: K and/or MAG REPLACEMENT MC SCH (08:00)
[2022-01-14] MEDS: enoxaparin 40mg/0.4ml syringe SQ SCH ×2 (09:21→20:31)
[2022-01-14] MEDS ORDERED: ipratropium 0.5 MG/2.5ML nebule IH PRN (09:55)
[2022-01-14] MEDS ORDERED: HYDROcodone/acetaminophen 10/325mg tab PO PRN (09:55)
[2022-01-14] MEDS ORDERED: aspirin 81mg, enteric-coated 1 TAB TABLET.DR PO SCH (10:11)
[2022-01-14] MEDS: docusate sod 100mg capsule PO SCH ×2 (11:25→20:30)
[2022-01-14] MEDS: pantoprazole 40mg Tablet.DR PO SCH ×2 (11:25→20:29)
[2022-01-14] MEDS ORDERED: potassium Cl 20 mEq SR tablet PO PRN (12:15)
[2022-01-14] MEDS ORDERED: oxyCODONE/APAP 5-325mg tablet PO PRN (13:30)
[2022-01-14] MEDS: oxyCODONE/APAP 5-325mg tablet PO PRN ×3 (14:58→23:26)
[2022-01-14 15:24] LABS: ABG BASE EXCESS 7.1 mmol/L (-2.0-2.0); ABG HCO3 34.1 mmol/L (22.0-26.0); ABG PCO2 (T) 64.3 mmHg (35.0-48.0); ALLEN'S TEST POSITIVE; FCOHb 0.5 % (0.0-3.9); FMetHb 0.4 % (0.0-1.5); FO2Hb 93.2 % (94-97); TOTAL HEMOGLOBIN 9.2 G/dl (14.0-18.0)
[2022-01-14] MEDS ORDERED: lactobacillus acidophilus cap PO SCH (20:00)
[2022-01-14] MEDS ORDERED: ranolazine 500mg SR tablet (Q12H) PO SCH (20:00)
[2022-01-14] MEDS ORDERED: furosemide 20MG tablet PO SCH (20:00)
[2022-01-14] MEDS: cefTRIAXone 1g/NS 100ml IVPB 100 ML IV SCH (20:31)
[2022-01-14] MEDS ORDERED: sertraline 50mg tablet PO SCH (21:00)
[2022-01-15] VITALS (24 sets, daily range): BP systolic 14–181; BP diastolic 59–107
[2022-01-15] MEDS: oxyCODONE/APAP 5-325mg tablet PO PRN (04:01)
[2022-01-15] MEDS ORDERED: HYDROmorphone 1 mg/ml syringe IV ONE (04:45)
[2022-01-15 06:17] LABS: BASOPHILS % (AUTO) 0.3 % (0-1); EOSINOPHILS % (AUTO) 0.4 % (0-6); HEMATOCRIT 26.4 % (42.0-52.0); HEMOGLOBIN 8.6 g/dl (14.0-17.9); LYMPHOCYTES # (AUTO) 0.3 X10'3 (1.1-4.8); LYMPHOCYTES % (AUTO) 4.8 % (21-51); MEAN CORPUSCULAR HEMOGLOBIN 31.6 PG (27.0-31.0); MEAN CORPUSCULAR HGB CONC 32.6 g/dL (33.0-36.5); MEAN PLATELET VOLUME 8.9 FL (7.4-10.4); MONOCYTES # (AUTO) 0.4 X10'3 (0-0.9); MONOCYTES % (AUTO) 6.1 % (2-12); NEUTROPHILS # (AUTO) 5.6 X10'3 (1.8-7.7); NEUTROPHILS % (AUTO) 88.4 % (42-75); PLATELET COUNT 160 X10'3 (140-440); RED BLOOD COUNT 2.72 X10'6 (4.70-6.10); RED CELL DISTRIBUTION WIDTH 20.2 % (11.5-14.5); WHITE BLOOD COUNT 6.4 X10'3 (4.5-11.0)
[2022-01-15 06:31] LABS: ANION GAP 3 (8-16); BLOOD UREA NITROGEN 22 MG/DL (7-18); BUN/CREATININE RATIO 23.7 (5.4-32.0); CALCIUM 8.6 MG/DL (8.5-10.1); CHLORIDE 98 MMOL/L (99-107); CREATININE 0.93 MG/DL (0.60-1.10); GLUCOSE 116 MG/DL (70-104); MAGNESIUM 2.5 MG/DL (1.5-2.4); PHOSPHORUS 4.2 MG/DL (2.3-4.5); POTASSIUM 4.4 MMOL/L (3.5-5.1); SODIUM 137 MMOL/L (135-145); eGFR 80 ML/MIN
[2022-01-15 07:03] LABS: PLATELET ESTIMATE NORMAL; TOTAL CELLS COUNTED 100
[2022-01-15 07:04] LABS: ANISOCYTOSIS 3+; POLYCHROMASIA 1+; TEAR DROP CELLS FEW; TOXIC GRANULATION 1+
[2022-01-15] MEDS: ipratropium/albuterol 3ml nebule NEB SCH ×5 (07:30→23:37)
[2022-01-15] MEDS ORDERED: levoTHYROXINE 75mcg tablet PO SCH (08:00)
[2022-01-15] MEDS: enoxaparin 40mg/0.4ml syringe SQ SCH ×2 (08:00→19:27)
[2022-01-15] MEDS ORDERED: atorvastatin 20mg tablet PO SCH (08:00)
[2022-01-15] MEDS ORDERED: QUEtiapine 25mg tablet PO SCH (08:00)
[2022-01-15] MEDS ORDERED: finasteride 5mg tablet PO SCH (08:00)
[2022-01-15] MEDS ORDERED: predniSONE 20 mg tablet PO SCH (08:00)
[2022-01-15] MEDS: K and/or MAG REPLACEMENT MC SCH (08:00)
[2022-01-15] MEDS ORDERED: apixaban 5mg tablet PO SCH (08:00)
[2022-01-15] MEDS ORDERED: allopurinol 100mg tablet PO SCH (08:00)
[2022-01-15] MEDS ORDERED: amLODIPine 5mg tablet PO SCH (08:00)
[2022-01-15] MEDS ORDERED: LOSA25TA41 PO (08:56)
[2022-01-15] MEDS ORDERED: FLUT1DIS20 INH (08:56)
[2022-01-15] MEDS ORDERED: TERA5CAP4 PO (08:56)
[2022-01-15] MEDS: methylPREDNISolone sod succ 125mg/2ml vial IV SCH ×2 (13:47→22:09)
[2022-01-15] MEDS: furosemide 20 MG/2 ML vial IV SCH ×2 (13:47→22:09)
[2022-01-15] MEDS: pantoprazole 40MG/NS 100ML BAG 100 ML IV SCH (13:47)
[2022-01-15] MEDS: morphine 2 MG/ML inj. syringe IV PRN (16:03)
[2022-01-15] MEDS: docusate sod 100mg capsule PO SCH (17:30)
[2022-01-15] MEDS: LEVOTHYROXINE SODIUM 100 MCG/5 ML injection IV SCH (17:30)
[2022-01-15] MEDS: ranolazine 500mg SR tablet (Q12H) PO SCH (17:30)
[2022-01-15] MEDS: MESSAGE TO NURSING PO SCH (17:30)
--- NOTE | 2022-01-15 17:58 | NUR ---
Pt. refusing to get off BIPAP, Unable to administer PO meds/dinner. Dr. Emanuelsch aware and will be at bedside shortly.
[2022-01-15] MEDS: allopurinol 100mg tablet PO SCH (18:00)
[2022-01-15] MEDS: aspirin 81mg, enteric-coated 1 TAB TABLET.DR PO SCH (18:00)
[2022-01-15] MEDS: sertraline 50mg tablet PO SCH (18:00)
[2022-01-15] MEDS: finasteride 5mg tablet PO SCH (18:00)
[2022-01-15] MEDS: terazosin 5mg capsule PO SCH (18:00)
[2022-01-15] MEDS: atorvastatin 20mg tablet PO SCH (18:00)
[2022-01-15] MEDS: amLODIPine 5mg tablet PO SCH (18:00)
[2022-01-15] MEDS ORDERED: LORazepam 2 mg/ml vial IV PRN (18:55)
[2022-01-15] MEDS ORDERED: diphenhydrAMINE 50 mg/ml inj IV ONE (18:55)
[2022-01-15] MEDS: budesonide 0.5mg/2ml UD nebule IH SCH (19:26)
[2022-01-15] MEDS: cefTRIAXone 1g/NS 100ml IVPB 100 ML IV SCH (21:00)
[2022-01-16] VITALS (23 sets, daily range): BP systolic 122–194; BP diastolic 65–106
[2022-01-16] MEDS: methylPREDNISolone sod succ 125mg/2ml vial IV SCH ×4 (02:21→20:43)
[2022-01-16] MEDS: morphine 2 MG/ML inj. syringe IV PRN ×3 (02:27→18:57)
[2022-01-16] MEDS: ipratropium/albuterol 3ml nebule NEB SCH ×6 (03:33→23:15)
[2022-01-16 07:10] LABS: BASOPHILS % (AUTO) 0 % (0-1); EOSINOPHILS % (AUTO) 0 % (0-6); HEMATOCRIT 27.4 % (42.0-52.0); HEMOGLOBIN 9.2 g/dl (14.0-17.9); LYMPHOCYTES # (AUTO) 0.1 X10'3 (1.1-4.8); LYMPHOCYTES % (AUTO) 1.9 % (21-51); MEAN CORPUSCULAR HEMOGLOBIN 32.1 PG (27.0-31.0); MEAN CORPUSCULAR HGB CONC 33.4 g/dL (33.0-36.5); MEAN PLATELET VOLUME 8.7 FL (7.4-10.4); MONOCYTES # (AUTO) 0.2 X10'3 (0-0.9); MONOCYTES % (AUTO) 3.3 % (2-12); NEUTROPHILS # (AUTO) 5.7 X10'3 (1.8-7.7); NEUTROPHILS % (AUTO) 94.8 % (42-75); PLATELET COUNT 156 X10'3 (140-440); RED BLOOD COUNT 2.86 X10'6 (4.70-6.10); RED CELL DISTRIBUTION WIDTH 19.3 % (11.5-14.5)
[2022-01-16] MEDS: budesonide 0.5mg/2ml UD nebule IH SCH ×2 (07:11→19:20)
[2022-01-16 07:26] LABS: ALBUMIN 3.1 G/DL (3.4-5.0); ANION GAP 3 (8-16); BLOOD UREA NITROGEN 17 MG/DL (7-18); CALCIUM 8.6 MG/DL (8.5-10.1); CHLORIDE 100 MMOL/L (99-107); CREATININE 0.74 MG/DL (0.60-1.10); GLUCOSE 146 MG/DL (70-104); MAGNESIUM 2.5 MG/DL (1.5-2.4); PHOSPHORUS 3.9 MG/DL (2.3-4.5); POTASSIUM 4.5 MMOL/L (3.5-5.1); SODIUM 141 MMOL/L (135-145); TOTAL CARBON DIOXIDE 38.4 MMOL/L (24-32); eGFR > 90 ML/MIN
[2022-01-16] MEDS: MESSAGE TO NURSING PO SCH ×2 (07:30→17:30)
[2022-01-16 07:40] LABS: ANISOCYTOSIS 2+; PLATELET ESTIMATE NORMAL; TOTAL CELLS COUNTED 100
[2022-01-16 07:41] LABS: ELLIPTOCYTES FEW; POLYCHROMASIA FEW; TEAR DROP CELLS FEW; TOXIC GRANULATION 1+
[2022-01-16] MEDS: enoxaparin 40mg/0.4ml syringe SQ SCH ×2 (07:57→20:43)
[2022-01-16] MEDS: pantoprazole 40MG/NS 100ML BAG 100 ML IV SCH (07:58)
[2022-01-16] MEDS: docusate sod 100mg capsule PO SCH ×2 (07:59→17:42)
[2022-01-16] MEDS: ranolazine 500mg SR tablet (Q12H) PO SCH ×2 (07:59→17:43)
[2022-01-16] MEDS: furosemide 20 MG/2 ML vial IV SCH ×3 (07:59→20:43)
[2022-01-16] MEDS: K and/or MAG REPLACEMENT MC SCH (08:00)
[2022-01-16] MEDS: nitroGLYCERIN 1gm ointment UD TP SCH ×3 (08:47→20:44)
[2022-01-16] MEDS ORDERED: nitroGLYCERIN 0.4mg SUBLingual tab SL PRN (08:50)
--- NOTE | 2022-01-16 08:51 | NUR ---
Pt placed on Bipap, patient doing well sating 95% for aocuple minutes, patient then coughed heavely. became very anxious and complained of anxiety and chest pain. BiPap placed back on patient. patient complained of chest pain. EKG complete and sublingual nitro admin, other meds given as per MAR
[2022-01-16] MEDS: nitroGLYCERIN 0.4mg SUBLingual tab SL PRN (08:59)
[2022-01-16] MEDS: LEVOTHYROXINE SODIUM 100 MCG/5 ML injection IV SCH (09:00)
[2022-01-16] MEDS ORDERED: sodium bicarbonate (8.4%) 1 mEq/ml syringe ONE (11:11)
[2022-01-16] MEDS: fentaNYL/PF 50MCG/1 ML 2ML syringe IV PRN ×2 (11:38→16:49)
[2022-01-16] MEDS: sertraline 50mg tablet PO SCH (17:42)
[2022-01-16] MEDS: finasteride 5mg tablet PO SCH (17:42)
[2022-01-16] MEDS: aspirin 81mg, enteric-coated 1 TAB TABLET.DR PO SCH (17:42)
[2022-01-16] MEDS: atorvastatin 20mg tablet PO SCH (17:42)
[2022-01-16] MEDS: allopurinol 100mg tablet PO SCH (17:43)
[2022-01-16] MEDS: terazosin 5mg capsule PO SCH (17:43)
[2022-01-16] MEDS: amLODIPine 5mg tablet PO SCH (17:46)
[2022-01-16] MEDS: cefTRIAXone 1g/NS 100ml IVPB 100 ML IV SCH (20:42)
[2022-01-16] MEDS: LORazepam 2 mg/ml vial IV PRN (20:44)
[2022-01-17] VITALS (24 sets, daily range): BP systolic 132–163; BP diastolic 71–99
[2022-01-17] MEDS: morphine 2 MG/ML inj. syringe IV PRN ×4 (00:08→21:03)
[2022-01-17] MEDS: methylPREDNISolone sod succ 125mg/2ml vial IV SCH ×4 (01:54→19:40)
[2022-01-17] MEDS: ipratropium/albuterol 3ml nebule NEB SCH ×6 (03:01→23:02)
[2022-01-17] MEDS: LORazepam 2 mg/ml vial IV PRN (03:14)
--- NOTE | 2022-01-17 03:42 | NUR ---
Pt refusing to be turned or bathed. Requests ativan and/or pain medication each time he is approached by nursing or RTs. Refuses non-narcotic pain interventions such as repositioning, elevation, etc.
--- NOTE | 2022-01-17 04:30 | NUR ---
Pt sleeping soundly, approached to perform complete bed bath and linen change. Pt slept through removal of pillows and excess linnen, and entire bed bath and only woke when being turned to the side to change the linen. Immediately starts screaming that he is in pain and needs a shot. informed it is too soon for additional medication to which he argued, "no it's not!!". Advised I would not give him additional medication because he was so obtunded he didn't realize he was being bathed. Instead I explained I would turn him and prop him with pillows as his back pain is probably due to the fact that he refuses to be turned. Pt immediately fell back asleep after being positioned with pillows.
[2022-01-17 06:50] LABS: BASOPHILS % (AUTO) 0.1 % (0-1); EOSINOPHILS % (AUTO) 0 % (0-6); HEMATOCRIT 25.8 % (42.0-52.0); HEMOGLOBIN 8.5 g/dl (14.0-17.9); LYMPHOCYTES # (AUTO) 0.1 X10'3 (1.1-4.8); LYMPHOCYTES % (AUTO) 2.5 % (21-51); MEAN CORPUSCULAR HEMOGLOBIN 31.3 PG (27.0-31.0); MEAN CORPUSCULAR HGB CONC 32.9 g/dL (33.0-36.5); MEAN CORPUSCULAR VOLUME 95.2 FL (78-98); MEAN PLATELET VOLUME 8.7 FL (7.4-10.4); MONOCYTES # (AUTO) 0.1 X10'3 (0-0.9); MONOCYTES % (AUTO) 1.7 % (2-12); NEUTROPHILS # (AUTO) 3.2 X10'3 (1.8-7.7); NEUTROPHILS % (AUTO) 95.7 % (42-75); PLATELET COUNT 132 X10'3 (140-440); RED BLOOD COUNT 2.71 X10'6 (4.70-6.10); RED CELL DISTRIBUTION WIDTH 19.3 % (11.5-14.5); WHITE BLOOD COUNT 3.3 X10'3 (4.5-11.0)
[2022-01-17 06:56] LABS: ALBUMIN 2.9 G/DL (3.4-5.0); ANION GAP 2 (8-16); BLOOD UREA NITROGEN 19 MG/DL (7-18); BUN/CREATININE RATIO 27.5 (5.4-32.0); CALCIUM 8.7 MG/DL (8.5-10.1); CHLORIDE 100 MMOL/L (99-107); CREATININE 0.69 MG/DL (0.60-1.10); GLUCOSE 162 MG/DL (70-104); MAGNESIUM 2.4 MG/DL (1.5-2.4); PHOSPHORUS 2.8 MG/DL (2.3-4.5); POTASSIUM 4.2 MMOL/L (3.5-5.1); SODIUM 144 MMOL/L (135-145); eGFR > 90 ML/MIN
[2022-01-17 06:57] LABS: TOTAL CARBON DIOXIDE 41.9 MMOL/L (24-32)
[2022-01-17] MEDS: MESSAGE TO NURSING PO SCH ×2 (07:30→17:30)
[2022-01-17] MEDS: nitroGLYCERIN 0.4mg SUBLingual tab SL PRN (07:33)
[2022-01-17] MEDS: budesonide 0.5mg/2ml UD nebule IH SCH ×2 (07:34→18:48)
[2022-01-17] MEDS: ranolazine 500mg SR tablet (Q12H) PO SCH ×2 (07:45→17:15)
[2022-01-17] MEDS: LEVOTHYROXINE SODIUM 100 MCG/5 ML injection IV SCH (08:00)
[2022-01-17] MEDS: furosemide 20 MG/2 ML vial IV SCH ×3 (08:00→21:02)
[2022-01-17] MEDS: pantoprazole 40MG/NS 100ML BAG 100 ML IV SCH (08:00)
[2022-01-17] MEDS: docusate sod 100mg capsule PO SCH ×2 (08:01→17:15)
[2022-01-17] MEDS: enoxaparin 40mg/0.4ml syringe SQ SCH ×2 (08:01→19:39)
[2022-01-17] MEDS: nitroGLYCERIN 1gm ointment UD TP SCH ×2 (09:15→19:41)
[2022-01-17 09:34] LABS: NUCLEATED RED BLOOD CELLS 2 /100WBC (0-0); TOTAL CELLS COUNTED 100
[2022-01-17 09:37] LABS: ANISOCYTOSIS 2+; ELLIPTOCYTES FEW; PLATELET ESTIMATE DECREASED; POLYCHROMASIA FEW; SCHISTOCYTES FEW; STOMATOCYTES FEW; TEAR DROP CELLS 1+
[2022-01-17] MEDS: LORazepam 0.5 MG tablet PO PRN ×2 (11:03→19:40)
[2022-01-17] MEDS: oxyCODONE/APAP 10/325mg tablet PO PRN ×3 (11:04→22:39)
[2022-01-17] MEDS: atorvastatin 20mg tablet PO SCH (17:16)
[2022-01-17] MEDS: aspirin 81mg, enteric-coated 1 TAB TABLET.DR PO SCH (17:16)
[2022-01-17] MEDS: terazosin 5mg capsule PO SCH (17:16)
[2022-01-17] MEDS: finasteride 5mg tablet PO SCH (17:17)
[2022-01-17] MEDS: sertraline 50mg tablet PO SCH (17:17)
[2022-01-17] MEDS: amLODIPine 5mg tablet PO SCH (17:17)
[2022-01-17] MEDS: allopurinol 100mg tablet PO SCH (17:17)
[2022-01-17] MEDS ORDERED: DEXTROSE 15 GM of carb/4 tabs (each vial/BOTTLE has 4 tablets) PO PRN ×2 (20:20)
[2022-01-17] MEDS ORDERED: dextrose 50%-water 50ml dispensing syringe IV PRN ×2 (20:20)
[2022-01-17] MEDS ORDERED: MESSAGE TO PHARMACY PO ONE (20:20)
[2022-01-17] MEDS ORDERED: glucagon, human recombinant 1mg kit SUBCUT PRN (20:20)
[2022-01-17] MEDS: cefTRIAXone 1g/NS 100ml IVPB 100 ML IV SCH (21:02)
[2022-01-17] MEDS: insulin glargine (Lantus) pen - multi-dose SQ SCH (21:56)
[2022-01-17] MEDS: insulin Lispro (HumaLOG) vial - multi-dose SQ SCH (21:57)
--- NOTE | 2022-01-17 23:31 | NUR ---
Attempting to turn q2hrs but pt keeps removing pillows stating he doesn't like being turned. Educated on risks of pressure sores and increased length of stay/mobidity. Will continue to turn q2hrs and educate pt, hopefully he will be compliant with therapies.
--- NOTE | 2022-01-17 23:41 | NUR ---
pt refusing nighttime bath and linen/gown changes. Wiped up what I could with 2%CHG wipes but pt would not fully turn to get back or let me change linen/gown. Will ask again at 0100 when he can recieve morphine.
[2022-01-18] VITALS (24 sets, daily range): BP systolic 127–157; BP diastolic 68–98
[2022-01-18] MEDS: morphine 2 MG/ML inj. syringe IV PRN ×5 (01:02→20:26)
[2022-01-18] MEDS: methylPREDNISolone sod succ 125mg/2ml vial IV SCH ×4 (01:34→20:25)
[2022-01-18] MEDS: ipratropium/albuterol 3ml nebule NEB SCH ×6 (02:30→23:00)
[2022-01-18] MEDS: oxyCODONE/APAP 10/325mg tablet PO PRN ×2 (02:38→20:26)
[2022-01-18] MEDS: LORazepam 0.5 MG tablet PO PRN (05:04)
[2022-01-18 06:14] LABS: BASOPHILS % (AUTO) 0 % (0-1); EOSINOPHILS % (AUTO) 0 % (0-6); HEMATOCRIT 25.9 % (42.0-52.0); HEMOGLOBIN 8.5 g/dl (14.0-17.9); LYMPHOCYTES # (AUTO) 0.1 X10'3 (1.1-4.8); LYMPHOCYTES % (AUTO) 2.3 % (21-51); MEAN CORPUSCULAR HEMOGLOBIN 31.2 PG (27.0-31.0); MEAN CORPUSCULAR HGB CONC 32.7 g/dL (33.0-36.5); MEAN CORPUSCULAR VOLUME 95.2 FL (78-98); MEAN PLATELET VOLUME 8.7 FL (7.4-10.4); MONOCYTES # (AUTO) 0.1 X10'3 (0-0.9); MONOCYTES % (AUTO) 1.9 % (2-12); NEUTROPHILS # (AUTO) 4.2 X10'3 (1.8-7.7); NEUTROPHILS % (AUTO) 95.8 % (42-75); PLATELET COUNT 128 X10'3 (140-440); RED BLOOD COUNT 2.72 X10'6 (4.70-6.10); RED CELL DISTRIBUTION WIDTH 19.1 % (11.5-14.5); WHITE BLOOD COUNT 4.4 X10'3 (4.5-11.0)
[2022-01-18 06:39] LABS: ALBUMIN 2.9 G/DL (3.4-5.0); ANION GAP 3 (8-16); BLOOD UREA NITROGEN 25 MG/DL (7-18); BUN/CREATININE RATIO 29.4 (5.4-32.0); CHLORIDE 95 MMOL/L (99-107); CREATININE 0.85 MG/DL (0.60-1.10); GLUCOSE 189 MG/DL (70-104); MAGNESIUM 2.5 MG/DL (1.5-2.4); SODIUM 137 MMOL/L (135-145); TOTAL CARBON DIOXIDE 39.5 MMOL/L (24-32); eGFR 89 ML/MIN
[2022-01-18] MEDS: MESSAGE TO NURSING PO SCH ×2 (07:30→17:52)
[2022-01-18] MEDS: budesonide 0.5mg/2ml UD nebule IH SCH ×2 (07:41→21:07)
[2022-01-18] MEDS: nitroGLYCERIN 1gm ointment UD TP SCH ×2 (08:00→09:10)
[2022-01-18] MEDS: cefTRIAXone 1g/NS 100ml IVPB 100 ML IV SCH (08:15)
[2022-01-18] MEDS: furosemide 20 MG/2 ML vial IV SCH ×3 (08:20→21:32)
[2022-01-18] MEDS: enoxaparin 40mg/0.4ml syringe SQ SCH (08:20)
[2022-01-18] MEDS: ranolazine 500mg SR tablet (Q12H) PO SCH ×2 (08:20→17:39)
[2022-01-18] MEDS: pantoprazole 40MG/NS 100ML BAG 100 ML IV SCH (08:21)
[2022-01-18] MEDS: docusate sod 100mg capsule PO SCH ×2 (08:21→17:37)
[2022-01-18] MEDS: LEVOTHYROXINE SODIUM 100 MCG/5 ML injection IV SCH (08:21)
[2022-01-18] MEDS: insulin Lispro (HumaLOG) vial - multi-dose SQ SCH ×3 (08:39→18:14)
[2022-01-18] MEDS: LORazepam 2 mg/ml vial IV PRN ×2 (11:27→20:26)
--- NOTE | 2022-01-18 11:59 | NUR ---
Initial: Pt admit DX acute respiratory failure, KIA, acute on chronic COPD and HF per EMR. Pt initially intubated though self-extubated in ER remains BIPAP dependent per EMR. Pt on heart healthy diet though mostly 0-25% avg meals outside 88% dinner intake last night per EMR. Per RN; pt wanting to eat but breakfast tray held this AM as on BIPAP though PO meds given. Goal to increase PO intake and wean from BIPAP today per hematology oncology consultant at rounds; if trays continue to be held pt would benefit from NG for nutrition on BIPAP. LBM 4/3 receiving routine colace. Will continue to monitor. Rec: 1. liberalize to regular diet per MD given poor PO hx 2. IF unable to take PO meals vs poor PO on BIPAP; consider EN via NG to meet nutrition needs. IF TF; Vital AF at 75ml/hr goal 3. routine bowel care 4. daily wts Addendum: 01/18/22 at [address] Amended: Links added.
--- NOTE | 2022-01-18 13:58 | NUR ---
Pt was on hiflow nasal canula as per flow for about 2 hours, went back to BbiPap after lunch for nap.
[2022-01-18] MEDS: atorvastatin 20mg tablet PO SCH (17:37)
[2022-01-18] MEDS: amLODIPine 5mg tablet PO SCH (17:38)
[2022-01-18] MEDS: aspirin 81mg, enteric-coated 1 TAB TABLET.DR PO SCH (17:38)
[2022-01-18] MEDS: sertraline 50mg tablet PO SCH (17:38)
[2022-01-18] MEDS: finasteride 5mg tablet PO SCH (17:39)
[2022-01-18] MEDS: terazosin 5mg capsule PO SCH (17:39)
[2022-01-18] MEDS: allopurinol 100mg tablet PO SCH (17:39)
[2022-01-18] MEDS: busPIRone 5mg tablet PO SCH (17:39)
[2022-01-18] MEDS: insulin glargine (Lantus) pen - multi-dose SQ SCH (21:40)
[2022-01-19] VITALS (23 sets, daily range): BP systolic 127–165; BP diastolic 66–89
[2022-01-19] MEDS: oxyCODONE/APAP 10/325mg tablet PO PRN ×5 (00:29→20:00)
[2022-01-19] MEDS: morphine 2 MG/ML inj. syringe IV PRN ×3 (00:29→19:59)
[2022-01-19] MEDS: LORazepam 2 mg/ml vial IV PRN ×2 (00:30→04:10)
[2022-01-19] MEDS: methylPREDNISolone sod succ 125mg/2ml vial IV SCH ×4 (02:40→19:58)
[2022-01-19] MEDS: ipratropium/albuterol 3ml nebule NEB SCH ×6 (02:41→23:47)
[2022-01-19 04:47] LABS: BASOPHILS % (AUTO) 0.1 % (0-1); EOSINOPHILS % (AUTO) 0 % (0-6); HEMATOCRIT 28.5 % (42.0-52.0); HEMOGLOBIN 9.3 g/dl (14.0-17.9); LYMPHOCYTES # (AUTO) 0.1 X10'3 (1.1-4.8); LYMPHOCYTES % (AUTO) 1.8 % (21-51); MEAN CORPUSCULAR HGB CONC 32.6 g/dL (33.0-36.5); MEAN PLATELET VOLUME 8.5 FL (7.4-10.4); MONOCYTES # (AUTO) 0.1 X10'3 (0-0.9); MONOCYTES % (AUTO) 1.9 % (2-12); NEUTROPHILS # (AUTO) 4.4 X10'3 (1.8-7.7); NEUTROPHILS % (AUTO) 96.2 % (42-75); PLATELET COUNT 129 X10'3 (140-440); RED CELL DISTRIBUTION WIDTH 18.8 % (11.5-14.5); WHITE BLOOD COUNT 4.6 X10'3 (4.5-11.0)
[2022-01-19 04:55] LABS: ANION GAP 2 (8-16); BLOOD UREA NITROGEN 23 MG/DL (7-18); BUN/CREATININE RATIO 27.7 (5.4-32.0); CALCIUM 8.9 MG/DL (8.5-10.1); CHLORIDE 96 MMOL/L (99-107); CREATININE 0.83 MG/DL (0.60-1.10); GLUCOSE 174 MG/DL (70-104); MAGNESIUM 2.5 MG/DL (1.5-2.4); PHOSPHORUS 3.5 MG/DL (2.3-4.5); SODIUM 139 MMOL/L (135-145); eGFR > 90 ML/MIN
[2022-01-19 05:01] LABS: TOTAL CARBON DIOXIDE 41.1 MMOL/L (24-32)
--- NOTE | 2022-01-19 05:24 | NUR ---
71 year old man, admitted 01/13/2022, day 6 of hospitalization, full code, NDA, no restraints, no isolation. Presents from hoe to ER with Acute of Chronic COPD. Noted frequent hospitalizations for COPD exacerbations and Acute hypercarbic respiratory failure, Acute of Chronic CHF, pulmonary hypertension, atrial flutter on Eliquis, CAD s/p CABG in 1989 and cardiac cath on 12/2021. 01/14: He self-extubated overnight and is tolerating BIPAP well. PCO2 levels downtrending and he is now mentating well, conversant and following commands. Will resume home meds. WBC is WNL and he is afebrile therefore will hold off on ABX. Currently, Pt is Afebrile, AA confused to time, uncooperative and non compliant with recommended care. Pt insist on Yelling and insisting on juice and water and something to eat. C/o Pain 10/10 and was medicated for pain Q 4 hours with Morphine 2 mg and Percocet 10/365 and Ativan 1 mg for anxiety. HR 70-90's SR BP 158/89, +3 BLLE edema. IV access RAC and LA, No IVF. RR 14 PO 100%. BiPAP 14/8 40%, Took off BiPAP to give pt's Percocet and he desated to 80%. Mask reapplied and continue with therapy. Coarse breath sounds, equal symmetrical, non labored. Pt continuously drinking water, patient instructed he can not have water due to the HIGH PROBABILITY of ASPIRATION. He stated "I know what's good for me". Hypoactive bowel sounds, soft, large, round, No BM. Pt is on a Heart Healthy diet. I did not feed him due to BiPAP. Glucose checks AC/HS, HS glucose 181 no coverage needed. Pt is on Lasix has a condom cath to measure accurately, eventually it came off, pt bed was a little wet during bed change/ bed bath. Total out 800. Skin with dried Plaque rashes all over body, +3 BLLE edema red skin, non weeping. Pt remains safe, continue to monitor.
[2022-01-19] MEDS: budesonide 0.5mg/2ml UD nebule IH SCH ×2 (06:55→19:23)
[2022-01-19 07:09] LABS: TOTAL CELLS COUNTED 100
[2022-01-19 07:10] LABS: ANISOCYTOSIS 2+; PLATELET ESTIMATE DECREASED
[2022-01-19 07:11] LABS: TEAR DROP CELLS 1+; TOXIC GRANULATION 1+; TOXIC VACUOLATION FEW
[2022-01-19 07:12] LABS: POIKILOCYTOSIS 1+; POLYCHROMASIA FEW
[2022-01-19 07:13] LABS: ELLIPTOCYTES FEW
[2022-01-19] MEDS: MESSAGE TO NURSING PO SCH ×2 (07:30→17:30)
[2022-01-19] MEDS: busPIRone 5mg tablet PO SCH ×2 (07:30→17:43)
[2022-01-19] MEDS: pantoprazole 40mg Tablet.DR PO SCH (07:30)
[2022-01-19] MEDS: ranolazine 500mg SR tablet (Q12H) PO SCH ×2 (07:30→17:45)
[2022-01-19] MEDS: docusate sod 100mg capsule PO SCH ×2 (07:30→17:45)
[2022-01-19] MEDS: nitroGLYCERIN 1gm ointment UD TP SCH ×2 (08:00→19:59)
[2022-01-19] MEDS: enoxaparin 40mg/0.4ml syringe SQ SCH (08:00)
[2022-01-19] MEDS ORDERED: levoTHYROXINE 75mcg tablet PO SCH (08:00)
[2022-01-19] MEDS: furosemide 20 MG/2 ML vial IV SCH ×3 (08:00→21:21)
[2022-01-19] MEDS: levoTHYROXINE 75mcg tablet PO SCH (09:15)
[2022-01-19] MEDS: insulin Lispro (HumaLOG) vial - multi-dose SQ SCH ×2 (09:56→18:03)
--- NOTE | 2022-01-19 11:22 | NUR ---
F/u: Pt now on 10 L HFNC per EMR, pending documentation of PO intake for today. A1c results 5.1%, not criteria for DM dx per ADA guidelines and pt with no PMH DM per EMR. Will continue to follow closely. Addendum: 01/19/22 at [address] Amended: Links added.
[2022-01-19] MEDS: finasteride 5mg tablet PO SCH (17:43)
[2022-01-19] MEDS: aspirin 81mg, enteric-coated 1 TAB TABLET.DR PO SCH (17:43)
[2022-01-19] MEDS: amLODIPine 5mg tablet PO SCH (17:44)
[2022-01-19] MEDS: atorvastatin 20mg tablet PO SCH (17:44)
[2022-01-19] MEDS: sertraline 50mg tablet PO SCH (17:44)
[2022-01-19] MEDS: allopurinol 100mg tablet PO SCH (17:44)
[2022-01-19] MEDS: terazosin 5mg capsule PO SCH (17:45)
--- NOTE | 2022-01-19 17:55 | NUR ---
PATIENT ON HIGHFLOW 6L FOR ABOUT 7 HOURS AFTER DINNER PLACED BACK ON BIPAP PER PATIENTS REQUEST.
[2022-01-19] MEDS: LORazepam 1 MG tablet PO PRN (20:00)
[2022-01-19] MEDS: insulin glargine (Lantus) pen - multi-dose SQ SCH (21:24)
[2022-01-20] VITALS (17 sets, daily range): BP systolic 129–209; BP diastolic 59–83
[2022-01-20] MEDS: methylPREDNISolone sod succ 125mg/2ml vial IV SCH ×4 (01:23→20:43)
[2022-01-20] MEDS: morphine 2 MG/ML inj. syringe IV PRN ×4 (02:44→21:44)
[2022-01-20] MEDS: oxyCODONE/APAP 10/325mg tablet PO PRN ×3 (02:45→17:27)
[2022-01-20] MEDS: LORazepam 1 MG tablet PO PRN ×3 (02:45→21:03)
[2022-01-20] MEDS: ipratropium/albuterol 3ml nebule NEB SCH ×6 (02:58→23:10)
--- NOTE | 2022-01-20 05:39 | NUR ---
71 year old man, admitted 01/13/2022, day 7 of hospitalization, full code, NDA, no restraints, no isolation. Presents from hoe to ER with Acute of Chronic COPD. Noted frequent hospitalizations for COPD exacerbations and Acute hypercarbic respiratory failure, Acute of Chronic CHF, pulmonary hypertension, atrial flutter on Eliquis, CAD s/p CABG in 1989 and cardiac cath on 12/2021. 01/14: He self-extubated overnight and is tolerating BIPAP well. PCO2 levels downtrending and he is now mentating well, conversant and following commands. Will resume home meds. WBC is WNL and he is afebrile therefore will hold off on ABX. Currently, Pt is Afebrile, AA confused to time, uncooperative and non compliant with recommended care. Pt insist on Yelling and insisting on juice and water and eating food from home while on BiPAP. C/o Pain 10/10 and was medicated for pain Q 6 hours with Morphine 2 mg and Percocet 10/365 and Ativan 1 mg for anxiety. HR 70-90's SR BP 158/89, +3 BLLE edema. IV access RAC and LA, No IVF. RR 14 PO 100%. BiPAP 14/8 40%, Took off BiPAP to give pt's Percocet and he desated to 80%. Mask reapplied and continue with therapy. Coarse breath sounds, equal symmetrical, non labored. Pt continuously drinking water, patient instructed he can not have water due to the HIGH PROBABILITY of ASPIRATION. He stated "I know what's good for me". Hypoactive bowel sounds, soft, large, round, No BM. Pt is on a Heart Healthy diet. I did not feed him due to BiPAP. Glucose checks AC/HS, HS glucose 181 no coverage needed. Pt is on Lasix has a condom cath to measure accurately, eventually it came off, pt bed was a little wet during bed change/ bed bath. Total out 1200. Skin with dried Plaque rashes all over body, +3 BLLE edema red skin, non weeping. Pt remains safe, continue to monitor.
[2022-01-20 06:25] LABS: BASOPHILS % (AUTO) 0 % (0-1); EOSINOPHILS % (AUTO) 0 % (0-6); HEMATOCRIT 30.1 % (42.0-52.0); HEMOGLOBIN 9.8 g/dl (14.0-17.9); LYMPHOCYTES # (AUTO) 0.1 X10'3 (1.1-4.8); LYMPHOCYTES % (AUTO) 2.1 % (21-51); MEAN CORPUSCULAR HEMOGLOBIN 30.7 PG (27.0-31.0); MEAN CORPUSCULAR HGB CONC 32.4 g/dL (33.0-36.5); MEAN CORPUSCULAR VOLUME 94.5 FL (78-98); MEAN PLATELET VOLUME 8.6 FL (7.4-10.4); MONOCYTES # (AUTO) 0.1 X10'3 (0-0.9); MONOCYTES % (AUTO) 2.2 % (2-12); NEUTROPHILS # (AUTO) 5.1 X10'3 (1.8-7.7); NEUTROPHILS % (AUTO) 95.7 % (42-75); PLATELET COUNT 122 X10'3 (140-440); RED BLOOD COUNT 3.18 X10'6 (4.70-6.10); RED CELL DISTRIBUTION WIDTH 18.5 % (11.5-14.5); WHITE BLOOD COUNT 5.4 X10'3 (4.5-11.0)
[2022-01-20 06:42] LABS: ALBUMIN 3.1 G/DL (3.4-5.0); ANION GAP 4 (8-16); BLOOD UREA NITROGEN 27 MG/DL (7-18); BUN/CREATININE RATIO 32.5 (5.4-32.0); CALCIUM 9.1 MG/DL (8.5-10.1); CHLORIDE 96 MMOL/L (99-107); CREATININE 0.83 MG/DL (0.60-1.10); GLUCOSE 180 MG/DL (70-104); MAGNESIUM 2.8 MG/DL (1.5-2.4); PHOSPHORUS 3.6 MG/DL (2.3-4.5); POTASSIUM 4.4 MMOL/L (3.5-5.1); SODIUM 141 MMOL/L (135-145); TRIGLYCERIDES 161 MG/DL (20-135); eGFR > 90 ML/MIN
[2022-01-20 06:50] LABS: TOTAL CARBON DIOXIDE 40.6 MMOL/L (24-32)
[2022-01-20] MEDS: ranolazine 500mg SR tablet (Q12H) PO SCH ×2 (07:20→17:27)
[2022-01-20] MEDS: nitroGLYCERIN 1gm ointment UD TP SCH ×2 (07:20→20:51)
[2022-01-20] MEDS: furosemide 20 MG/2 ML vial IV SCH ×3 (07:20→20:47)
[2022-01-20] MEDS: levoTHYROXINE 75mcg tablet PO SCH (07:20)
[2022-01-20] MEDS: docusate sod 100mg capsule PO SCH ×2 (07:21→17:27)
[2022-01-20] MEDS: enoxaparin 40mg/0.4ml syringe SQ SCH (07:21)
[2022-01-20] MEDS: busPIRone 5mg tablet PO SCH ×2 (07:21→17:27)
[2022-01-20] MEDS: pantoprazole 40mg Tablet.DR PO SCH (07:21)
[2022-01-20] MEDS: MESSAGE TO NURSING PO SCH ×2 (07:30→17:30)
[2022-01-20] MEDS: budesonide 0.5mg/2ml UD nebule IH SCH ×2 (07:52→20:07)
[2022-01-20] MEDS: insulin Lispro (HumaLOG) vial - multi-dose SQ SCH ×3 (08:41→19:43)
[2022-01-20] MEDS: nitroGLYCERIN 0.4mg SUBLingual tab SL PRN (15:29)
--- NOTE | 2022-01-20 16:24 | NUR ---
received patient report from ICU Minerva GOMEZ.
[2022-01-20] MEDS: atorvastatin 20mg tablet PO SCH (17:26)
[2022-01-20] MEDS: amLODIPine 5mg tablet PO SCH (17:26)
[2022-01-20] MEDS: sertraline 50mg tablet PO SCH (17:26)
[2022-01-20] MEDS: allopurinol 100mg tablet PO SCH (17:27)
[2022-01-20] MEDS: aspirin 81mg, enteric-coated 1 TAB TABLET.DR PO SCH (17:27)
--- NOTE | 2022-01-20 18:48 | NUR ---
Problems reprioritized. Patient report given, questions answered & plan of care reviewed with Rere GOMEZ.
[2022-01-20] MEDS: finasteride 5mg tablet PO SCH (20:43)
[2022-01-20] MEDS: terazosin 5mg capsule PO SCH (20:44)
[2022-01-20] MEDS: insulin glargine (Lantus) pen - multi-dose SQ SCH (21:42)
[2022-01-21] MEDS: oxyCODONE/APAP 10/325mg tablet PO PRN ×2 (01:16→09:49)
[2022-01-21 02:00] VITALS: BP 135/61
[2022-01-21] MEDS: ipratropium/albuterol 3ml nebule NEB SCH ×3 (04:09→11:19)
[2022-01-21] MEDS: LORazepam 1 MG tablet PO PRN (05:10)
[2022-01-21 06:00] VITALS: BP 124/70
--- NOTE | 2022-01-21 06:32 | NUR ---
Problems reprioritized. Patient report given, questions answered & plan of care reviewed with Ernie GOMEZ.
[2022-01-21 06:46] LABS: BASOPHILS % (AUTO) 0 % (0-1); EOSINOPHILS % (AUTO) 0 % (0-6); HEMATOCRIT 28.2 % (42.0-52.0); HEMOGLOBIN 9.3 g/dl (14.0-17.9); LYMPHOCYTES # (AUTO) 0.1 X10'3 (1.1-4.8); LYMPHOCYTES % (AUTO) 1.6 % (21-51); MEAN CORPUSCULAR HEMOGLOBIN 31.3 PG (27.0-31.0); MEAN CORPUSCULAR HGB CONC 33.1 g/dL (33.0-36.5); MEAN CORPUSCULAR VOLUME 94.7 FL (78-98); MEAN PLATELET VOLUME 8.9 FL (7.4-10.4); MONOCYTES # (AUTO) 0.2 X10'3 (0-0.9); MONOCYTES % (AUTO) 2.8 % (2-12); NEUTROPHILS # (AUTO) 6.1 X10'3 (1.8-7.7); NEUTROPHILS % (AUTO) 95.6 % (42-75); PLATELET COUNT 118 X10'3 (140-440); RED BLOOD COUNT 2.98 X10'6 (4.70-6.10); WHITE BLOOD COUNT 6.3 X10'3 (4.5-11.0)
[2022-01-21 07:02] LABS: ANION GAP -3 (8-16); BLOOD UREA NITROGEN 24 MG/DL (7-18); BUN/CREATININE RATIO 37.5 (5.4-32.0); CALCIUM 8.5 MG/DL (8.5-10.1); CHLORIDE 98 MMOL/L (99-107); CREATININE 0.64 MG/DL (0.60-1.10); GLUCOSE 153 MG/DL (70-104); MAGNESIUM 2.6 MG/DL (1.5-2.4); PHOSPHORUS 3.2 MG/DL (2.3-4.5); POTASSIUM 3.9 MMOL/L (3.5-5.1); SODIUM 137 MMOL/L (135-145); eGFR > 90 ML/MIN
[2022-01-21 07:05] LABS: TOTAL CARBON DIOXIDE 42.2 MMOL/L (24-32)
[2022-01-21 07:20] LABS: ANISOCYTOSIS 2+; PLATELET ESTIMATE DECREASED; TOTAL CELLS COUNTED 100
[2022-01-21 07:21] LABS: POLYCHROMASIA FEW; TEAR DROP CELLS FEW
[2022-01-21] MEDS: MESSAGE TO NURSING PO SCH (07:30)
[2022-01-21] MEDS: budesonide 0.5mg/2ml UD nebule IH SCH (07:36)
[2022-01-21] MEDS: enoxaparin 40mg/0.4ml syringe SQ SCH (07:47)
[2022-01-21] MEDS: docusate sod 100mg capsule PO SCH (07:47)
[2022-01-21] MEDS: ranolazine 500mg SR tablet (Q12H) PO SCH (07:47)
[2022-01-21] MEDS: busPIRone 5mg tablet PO SCH (07:47)
[2022-01-21] MEDS: levoTHYROXINE 75mcg tablet PO SCH (07:48)
[2022-01-21] MEDS: pantoprazole 40mg Tablet.DR PO SCH (07:48)
[2022-01-21] MEDS: nitroGLYCERIN 1gm ointment UD TP SCH (07:48)
[2022-01-21] MEDS: furosemide 20 MG/2 ML vial IV SCH ×2 (07:49→13:58)
[2022-01-21] MEDS ORDERED: predniSONE 20 mg tablet PO SCH (08:00)
[2022-01-21] MEDS: insulin Lispro (HumaLOG) vial - multi-dose SQ SCH (10:02)
--- NOTE | 2022-01-21 10:16 | NUR ---
Reassessment: Pt continues on heart Healthy diet w/ low PO intake, avg 41% x 7 meals not meeting needs. Pt noted to be on NC or BiPAP throughout the day. D/w pt food preferences, see in Recs below. Pt was reluctant to accept ONS, will start w/ food preferences first and then may recommend ONS if needed. LBM 4/3 receiving routine colace. Will continue to monitor and make recommendations as appropriate. Rec: 1. liberalize to regular diet per MD given poor PO hx 2. IF unable to take PO meals vs poor PO on BIPAP; consider EN via NG to meet nutrition needs. IF TF; Vital AF at 75ml/hr goal 3. Smoothies TID, cranberry juice BIDLD, soup BIDBD, cottage cheese WB per pt preference 4. routine bowel care 5. daily wts Addendum: 01/21/22 at [address] Amended: Links added.
[2022-01-21 11:00] VITALS: BP 139/67
[2022-01-21] MEDS: morphine 2 MG/ML inj. syringe IV PRN (13:58)
--- NOTE | 2022-01-21 14:48 | NUR ---
Pt discharged to [facility] @ 5642
== END 2022-01-21 14:47 | DRG 208 ==
LOC: ER 20:19 → ED HOLD 21:36 → CICU 2S 01-14 09:06 → PCU 3S 01-20 17:15
PROVIDERS: ADMIT Internal Medicine; ATTEND Internal Medicine
PROC: 5A1935Z Respiratory Ventilation, Less than 24 Consecutive Hours (ICD-10-PCS; principal; 2022-01-13)
PROC: 0BH17EZ Insertion of Endotracheal Airway into Trachea, Via Natural or Artificial Opening (ICD-10-PCS; 2022-01-13)
PROC: 5A09557 Assistance with Respiratory Ventilation, Greater than 96 Consecutive Hours, Continuous Positive Airway Pressure (ICD-10-PCS; 2022-01-14)
PROC: 5A09357 Assistance with Respiratory Ventilation, Less than 24 Consecutive Hours, Continuous Positive Airway Pressure (ICD-10-PCS; 2022-01-18)
PROC: 5A0935A Assistance with Respiratory Ventilation, Less than 24 Consecutive Hours, High Flow/Velocity Cannula (ICD-10-PCS; 2022-01-18)
PROC: 5A09357 Assistance with Respiratory Ventilation, Less than 24 Consecutive Hours, Continuous Positive Airway Pressure (ICD-10-PCS; 2022-01-19)
PROC: 5A0935A Assistance with Respiratory Ventilation, Less than 24 Consecutive Hours, High Flow/Velocity Cannula (ICD-10-PCS; 2022-01-19)
PROC: 5A09357 Assistance with Respiratory Ventilation, Less than 24 Consecutive Hours, Continuous Positive Airway Pressure (ICD-10-PCS; 2022-01-20)
PROC: 5A0935A Assistance with Respiratory Ventilation, Less than 24 Consecutive Hours, High Flow/Velocity Cannula (ICD-10-PCS; 2022-01-20)
DX: J96.01 Acute respiratory failure with hypoxia (principal); G93.41 Metabolic encephalopathy; E66.2 Morbid (severe) obesity with alveolar hypoventilation; N17.9 Acute kidney failure, unspecified; I48.92 Unspecified atrial flutter; I11.0 Hypertensive heart disease with heart failure; J96.02 Acute respiratory failure with hypercapnia; J44.9 Chronic obstructive pulmonary disease, unspecified; I50.9 Heart failure, unspecified; E03.9 Hypothyroidism, unspecified; E78.00 Pure hypercholesterolemia, unspecified; I48.91 Unspecified atrial fibrillation; F41.1 Generalized anxiety disorder; N40.0 Benign prostatic hyperplasia without lower urinary tract symptoms; F32.A Depression, unspecified; E86.0 Dehydration; Z20.822 Contact with and (suspected) exposure to COVID-19; M54.9 Dorsalgia, unspecified; I27.81 Cor pulmonale (chronic); I25.10 Atherosclerotic heart disease of native coronary artery without angina pectoris; G89.29 Other chronic pain; M19.90 Unspecified osteoarthritis, unspecified site; Z86.73 Personal history of transient ischemic attack (TIA), and cerebral infarction without residual deficits; I25.2 Old myocardial infarction; Z87.442 Personal history of urinary calculi; Z95.1 Presence of aortocoronary bypass graft; Z99.81 Dependence on supplemental oxygen; Z90.49 Acquired absence of other specified parts of digestive tract; Z68.39 Body mass index [BMI] 39.0-39.9, adult; Z79.899 Other long term (current) drug therapy; Z95.5 Presence of coronary angioplasty implant and graft
CPT/HCPCS: 36415; 36600; 71045; 80048; 80053; 80305; 80320; 81001; 82800; 82803; 82948; 83036; 83605; 83735; 83880; 84100; 84145; 84443; 84478; 84484; 85007; 85018; 85025; 87040; 87081; 87635; 93005; 94002; 94640; 94660; 94760; 99291; C9113; G0378; J0696; J1170; J1200; J1650; J1815; J1940; J1956; J2060; J2250; J2270; J2310; J2704; J2930; J3010; J3490; J7512

== ENCOUNTER 2022-02-26 11:47 | Inpatient (IN) | payer OTHER, MEDICARE ==
[~2022-02-26] VITALS: Ht 180.3 cm; Wt 127.3 kg
[~2022-02-26 11:47] MED LIST changes: +FLUT1DIS20 INH; -HYDR-3965 PO; +LOSA25TA41 PO; -PRED10TA23 PO; +TERA5CAP4 PO; -etomidate 2mg/ml inj. ONE; -sodium bicarbonate (8.4%) 1 mEq/ml syringe ONE
[2022-02-26 14:26] LABS: BASOPHILS # (AUTO) 0.1 X10'3 (0-0.2); BASOPHILS % (AUTO) 0.3 % (0-1); EOSINOPHILS % (AUTO) 0.2 % (0-6); HEMATOCRIT 27.3 % (42.0-52.0); HEMOGLOBIN 8.7 g/dl (14.0-17.9); LYMPHOCYTES # (AUTO) 0.6 X10'3 (1.1-4.8); LYMPHOCYTES % (AUTO) 3.4 % (21-51); MEAN CORPUSCULAR HEMOGLOBIN 30.4 PG (27.0-31.0); MEAN CORPUSCULAR HGB CONC 32.1 g/dL (33.0-36.5); MEAN CORPUSCULAR VOLUME 94.8 FL (78-98); MEAN PLATELET VOLUME 7.4 FL (7.4-10.4); MONOCYTES # (AUTO) 0.6 X10'3 (0-0.9); MONOCYTES % (AUTO) 3.5 % (2-12); NEUTROPHILS # (AUTO) 17.2 X10'3 (1.8-7.7); NEUTROPHILS % (AUTO) 92.6 % (42-75); PLATELET COUNT 158 X10'3 (140-440); RED BLOOD COUNT 2.88 X10'6 (4.70-6.10); RED CELL DISTRIBUTION WIDTH 23.3 % (11.5-14.5); WHITE BLOOD COUNT 18.5 X10'3 (4.5-11.0)
[2022-02-26 14:43] LABS: ALANINE AMINOTRANSFERASE 17 U/L (12-78); ALBUMIN 2.3 G/DL (3.4-5.0); ALBUMIN/GLOBULIN RATIO 0.5 (1.1-1.5); ALKALINE PHOSPHATASE 91 IU/L (46-116); ANION GAP -1 (8-16); ASPARTATE AMINO TRANSFERASE 27 U/L (10-37); BLOOD UREA NITROGEN 13 MG/DL (7-18); BUN/CREATININE RATIO 24.1 (5.4-32.0); CALCIUM 8.7 MG/DL (8.5-10.1); CHLORIDE 97 MMOL/L (99-107); CREATININE 0.54 MG/DL (0.60-1.10); GLUCOSE 111 MG/DL (70-104); POTASSIUM 4.3 MMOL/L (3.5-5.1); SODIUM 138 MMOL/L (135-145); TOTAL PROTEIN 6.7 G/DL (6.4-8.2); eGFR > 90 ML/MIN
[2022-02-26 14:45] LABS: TOTAL CARBON DIOXIDE 41.8 MMOL/L (24-32)
[2022-02-26] MEDS ORDERED: piperacillin/tazo 3.375gm/50ml 50 ML IV ONE (15:05)
[2022-02-26] MEDS ORDERED: normal saline 1000ML IV soln IV ONE (15:05)
[2022-02-26] MEDS ORDERED: vancomycin/NS 1 GM ADD-VANTAGE 250 ML IV ONE (15:05)
[2022-02-26] MEDS ORDERED: ipratropium/albuterol 3ml nebule NEB ONE (15:10)
[2022-02-26] MEDS ORDERED: morphine 4 MG/ML inj SYRINge IV ONE (15:20)
[2022-02-26 15:27] LABS: ANISOCYTOSIS 3+; PLATELET ESTIMATE NORMAL; POIKILOCYTOSIS 1+; POLYCHROMASIA FEW; TOTAL CELLS COUNTED 100
[2022-02-26 15:58] LABS: ABG HCO3 31.8 mmol/L (22.0-26.0); ABG PCO2 (T) 56.4 mmHg (35.0-48.0); ABG PO2 (T) 57.4 mmHg (75.0-100.0); ALLEN'S TEST POSITIVE; FCOHb 2.8 % (0.0-3.9); FLOW 2 L/min; FMetHb 0.1 % (0.0-1.5); FO2Hb 85.4 % (94-97); PATIENT TEMPERATURE 36.4; TOTAL HEMOGLOBIN 11.6 G/dl (14.0-18.0)
[2022-02-26] MEDS ORDERED: furosemide 10 MG/1 ML 10ml inj IV ONE (16:40)
[2022-02-26] MEDS ORDERED: bisacodyl 10mg suppository rectal RC PRN (17:05)
[2022-02-26] MEDS ORDERED: acetaminophen 650mg rectal suppository RC PRN (17:05)
[2022-02-26] MEDS ORDERED: potassium CL 10mEq/100ml bag 100 ML IV PRN (17:05)
[2022-02-26] MEDS ORDERED: ondansetron 4mg rapidly disintigrating tab PO PRN (17:05)
[2022-02-26] MEDS ORDERED: magnesium 4gm in 100ml NS 100 ML IV PRN (17:05)
[2022-02-26] MEDS ORDERED: acetaminophen 325mg tablet PO PRN ×2 (17:05)
[2022-02-26] MEDS ORDERED: ondansetron/PF 4mg/2ml inj IV PRN (17:05)
[2022-02-26] MEDS ORDERED: ipratropium/albuterol 3ml nebule NEB PRN (17:05)
[2022-02-26] MEDS ORDERED: POTASSIUM BICARB 20meq eff tab 20 MEQ TABLET.EFF PO PRN ×2 (17:05)
[2022-02-26] MEDS ORDERED: metoclopramide 5 mg/ml inj IV PRN (17:05)
[2022-02-26] MEDS ORDERED: mag hydrox/Alum hydrox/simeth 30ml oral suspension PO PRN (17:05)
[2022-02-26] MEDS ORDERED: magnesium hydroxide 30ml (MOM) UD suspension PO PRN (17:05)
[2022-02-26] MEDS ORDERED: magnesium 2GM in 50ml NS 50 ML IV PRN (17:05)
[2022-02-26] MEDS ORDERED: magnesium Cl slow-release 64mg tablet PO PRN (17:05)
[2022-02-26] MEDS ORDERED: OXYC10TA47 PO (17:23)
[2022-02-26] MEDS ORDERED: ZOLP5TAB2 PO (17:23)
[2022-02-26] MEDS ORDERED: CARV3.122 PO (17:23)
[2022-02-26] MEDS ORDERED: ISOS60TA71 PO (17:23)
[2022-02-26] MEDS ORDERED: INSU100V9 SQ (17:25)
[2022-02-26] MEDS ORDERED: DULO30CA52 PO (17:27)
[2022-02-26] MEDS ORDERED: nitroGLYCERIN 0.4mg SUBLingual tab SL PRN (18:10)
[2022-02-26 18:42] LABS: CLARITY,URINE CLEAR (Clear); COLOR,URINE YELLOW (Yellow); GLUCOSE, URINE NEGATIVE (Neg); KETONES,URINE NEGATIVE (Neg); LEUKOCYTE ESTERASE ,URINE NEGATIVE (Neg); NITRITES, URINE NEGATIVE (Neg); OCCULT BLOOD,URINE NEGATIVE (Neg); PROTEIN,URINE TRACE mg/dl (Neg)
[2022-02-26 18:45] LABS: UA COLLECTION TYPE URINAL
[2022-02-26 18:50] LABS: BACTERIA,URINE FEW /HPF (Neg); HYALINE CASTS 0-3 /LPF (NEGATIVE); MUCUS STRANDS FEW /LPF (Neg); RBC,URINE 0-2 /HPF (0-2); SQUAMOUS EPITHELIAL CELL,UR FEW /LPF (FEW); WBC,URINE 0-4 /HPF (0-4)
[2022-02-26] MEDS: ipratropium/albuterol 3ml nebule NEB SCH ×2 (19:00→23:00)
[2022-02-26 19:07] LABS: MAGNESIUM 1.6 MG/DL (1.5-2.4); POTASSIUM 3.9 MMOL/L (3.5-5.1)
[2022-02-26] MEDS: K and/or MAG REPLACEMENT MC SCH (19:46)
--- NOTE | 2022-02-26 19:52 | NUR ---
RN notified Dr. Chaney in person at 1951 in person that patient's ST segment on telemetry appears elevated, pt denies chest pain. Dr. Chaney gave orders for EKG.
[2022-02-26] MEDS: pantoprazole 40mg Tablet.DR PO SCH (20:00)
[2022-02-26] MEDS: docusate sod 100mg capsule PO SCH (20:00)
[2022-02-26] MEDS: ranolazine 500mg SR tablet (Q12H) PO SCH (20:00)
[2022-02-26] MEDS: carVEDilol 3.125mg tablet PO SCH (20:00)
[2022-02-26] MEDS: apixaban 5mg tablet PO SCH (20:01)
[2022-02-26] MEDS: zolpidem 5mg tablet PO SCH (20:01)
--- NOTE | 2022-02-26 20:01 | NUR ---
EKG shows SR with RBB, Dr. Chaney reviewed EKG. No new orders.
--- NOTE | 2022-02-26 20:02 | NUR ---
RN notified Dr. Chaney in person at 1999 that patient is drowsy so RN held sarah. aware, no new orders.
[2022-02-26] MEDS: morphine 4 MG/ML inj SYRINge IV PRN (20:09)
[2022-02-26] MEDS ORDERED: temazepam 15mg capsule PO PRN (21:00)
--- NOTE | 2022-02-26 23:34 | NUR ---
Report called to Lianne Burger
[2022-02-27] VITALS (8 sets, daily range): BP systolic 108–147; BP diastolic 51–83
[2022-02-27] MEDS: piperacillin/tazo 3.375gm/50ml 50 ML IV SCH ×3 (01:22→16:40)
[2022-02-27] MEDS: morphine 4 MG/ML inj SYRINge IV PRN ×3 (04:34→21:28)
[2022-02-27 06:47] LABS: BASOPHILS % (AUTO) 0.3 % (0-1); EOSINOPHILS # (AUTO) 0.1 X10'3 (0-0.9); EOSINOPHILS % (AUTO) 0.4 % (0-6); HEMATOCRIT 24.9 % (42.0-52.0); HEMOGLOBIN 7.8 g/dl (14.0-17.9); LYMPHOCYTES # (AUTO) 0.5 X10'3 (1.1-4.8); LYMPHOCYTES % (AUTO) 3.9 % (21-51); MEAN CORPUSCULAR HEMOGLOBIN 30.1 PG (27.0-31.0); MEAN CORPUSCULAR HGB CONC 31.4 g/dL (33.0-36.5); MEAN CORPUSCULAR VOLUME 95.6 FL (78-98); MEAN PLATELET VOLUME 8.4 FL (7.4-10.4); MONOCYTES # (AUTO) 0.3 X10'3 (0-0.9); MONOCYTES % (AUTO) 2.2 % (2-12); NEUTROPHILS # (AUTO) 11.9 X10'3 (1.8-7.7); NEUTROPHILS % (AUTO) 93.2 % (42-75); PLATELET COUNT 142 X10'3 (140-440); RED BLOOD COUNT 2.61 X10'6 (4.70-6.10); WHITE BLOOD COUNT 12.7 X10'3 (4.5-11.0)
--- NOTE | 2022-02-27 07:02 | NUR ---
Problems reprioritized. Patient report given, PATRICIA Aguirre, questions answered & plan of care reviewed with .
[2022-02-27 07:14] LABS: ALANINE AMINOTRANSFERASE 21 U/L (12-78); ALBUMIN/GLOBULIN RATIO 0.5 (1.1-1.5); ALKALINE PHOSPHATASE 124 IU/L (46-116); ANION GAP -1 (8-16); ASPARTATE AMINO TRANSFERASE 27 U/L (10-37); BILIRUBIN,TOTAL 0.7 MG/DL (0.1-1.0); BLOOD UREA NITROGEN 15 MG/DL (7-18); BUN/CREATININE RATIO 22.4 (5.4-32.0); CALCIUM 8.2 MG/DL (8.5-10.1); CHLORIDE 98 MMOL/L (99-107); CREATININE 0.67 MG/DL (0.60-1.10); GLUCOSE 132 MG/DL (70-104); MAGNESIUM 1.7 MG/DL (1.5-2.4); SODIUM 137 MMOL/L (135-145); eGFR > 90 ML/MIN
[2022-02-27 07:20] LABS: TOTAL CARBON DIOXIDE 40.1 MMOL/L (24-32)
[2022-02-27 07:28] LABS: ANISOCYTOSIS 3+; PLATELET ESTIMATE DECREASED; POLYCHROMASIA FEW; TEAR DROP CELLS FEW; TOTAL CELLS COUNTED 100
[2022-02-27 07:29] LABS: POIKILOCYTOSIS 1+
[2022-02-27] MEDS: amLODIPine 5mg tablet PO SCH (07:37)
[2022-02-27] MEDS: isosorbide mononitrate 30mg tab.SR.24H PO SCH (07:37)
[2022-02-27] MEDS: ranolazine 500mg SR tablet (Q12H) PO SCH ×2 (07:37→21:26)
[2022-02-27] MEDS: levoTHYROXINE 75mcg tablet PO SCH (07:38)
[2022-02-27] MEDS: pantoprazole 40mg Tablet.DR PO SCH ×2 (07:38→21:26)
[2022-02-27] MEDS: apixaban 5mg tablet PO SCH ×2 (07:38→21:26)
[2022-02-27] MEDS: allopurinol 100mg tablet PO SCH (07:38)
[2022-02-27] MEDS: atorvastatin 20mg tablet PO SCH (07:38)
[2022-02-27] MEDS: docusate sod 100mg capsule PO SCH ×2 (07:38→21:26)
[2022-02-27] MEDS: duloxetine 30mg CAPSULE.DR PO SCH (07:38)
[2022-02-27] MEDS: carVEDilol 3.125mg tablet PO SCH ×2 (07:39→21:26)
[2022-02-27] MEDS: aspirin 81mg, enteric-coated 1 TAB TABLET.DR PO SCH (07:39)
[2022-02-27] MEDS: ipratropium/albuterol 3ml nebule NEB SCH ×5 (07:42→22:30)
[2022-02-27] MEDS: sertraline 50mg tablet PO SCH (07:49)
[2022-02-27] MEDS: K and/or MAG REPLACEMENT MC SCH ×2 (08:00→20:00)
--- NOTE | 2022-02-27 09:24 | NUR ---
Provider Notification PAGER ID: [phone] MESSAGE: Lefty Neal [id number]: pt in 07/26 pain to back. gave 6mg morphine at 0430, its q8HR. Not due till 1230pm. Pt needs more pain meds. PATRICIA Aguirre PCU
[2022-02-27] MEDS: finasteride 5mg tablet PO SCH (09:28)
--- NOTE | 2022-02-27 10:49 | NUR ---
1050 Pt is being very difficult. Pt was on 3L NC, NC was in patients mouth. Pt was complaining of being SOB. Pt told RN to turn up the oxygen to 4L. Pt was at 94%. Pt was reminded he was a 02 retainer and he shouldnt turn it up because his C02 is elevated. Pt stated, "i dont care turn it up!" 02 was turned up to 4L for 30 min then turned back down to 3L NC. Pt is on a 2L fluid restriction. Its 1050 and patient has had 1000L of fluids this AM. Pt is non compliant with fluid restriction. Pt is asking to sign a form to release himself from the fluid restriction. Pt is also complianing of 10/10 pain to his legs and back. pt has 6mg Morphine IV q 8 hours. Pt is sleeping between care and wakes asking for pain meds. paged, no response. Pt appears lethargic and SOB.
--- NOTE | 2022-02-27 18:25 | NUR ---
Pt refusing to maintain his 2L fluid restriction. Pt has had 2200ml from 3040-3380.
--- NOTE | 2022-02-27 19:15 | NUR ---
Patient in room PCU 3014. I have received report from Kathryn GOMEZ and had the opportunity to ask questions and assume patient care.
[2022-02-27] MEDS: furosemide 40mg/4ml inj IV SCH (21:25)
[2022-02-27] MEDS: clonazePAM 1mg tablet PO SCH (21:26)
[2022-02-27] MEDS: zolpidem 5mg tablet PO SCH (21:26)
[2022-02-28] MEDS: piperacillin/tazo 3.375gm/50ml 50 ML IV SCH ×3 (00:33→16:00)
[2022-02-28 02:00] VITALS: BP 126/66
[2022-02-28 06:00] VITALS: BP 165/79
--- NOTE | 2022-02-28 07:02 | NUR ---
Problems reprioritized. Patient report given, questions answered & plan of care reviewed with Cricket GOMEZ.
[2022-02-28] MEDS: ipratropium/albuterol 3ml nebule NEB SCH ×5 (07:28→23:01)
[2022-02-28] MEDS: allopurinol 100mg tablet PO SCH (08:00)
[2022-02-28] MEDS: K and/or MAG REPLACEMENT MC SCH ×2 (08:00→19:43)
[2022-02-28 08:16] LABS: BASOPHILS % (AUTO) 0.4 % (0-1); EOSINOPHILS % (AUTO) 0.3 % (0-6); HEMATOCRIT 24.5 % (42.0-52.0); HEMOGLOBIN 7.8 g/dl (14.0-17.9); LYMPHOCYTES # (AUTO) 0.5 X10'3 (1.1-4.8); LYMPHOCYTES % (AUTO) 4.4 % (21-51); MEAN CORPUSCULAR HEMOGLOBIN 30.3 PG (27.0-31.0); MEAN CORPUSCULAR HGB CONC 31.9 g/dL (33.0-36.5); MEAN CORPUSCULAR VOLUME 94.9 FL (78-98); MEAN PLATELET VOLUME 8.4 FL (7.4-10.4); MONOCYTES # (AUTO) 0.4 X10'3 (0-0.9); MONOCYTES % (AUTO) 3.2 % (2-12); NEUTROPHILS # (AUTO) 11.2 X10'3 (1.8-7.7); NEUTROPHILS % (AUTO) 91.7 % (42-75); PLATELET COUNT 137 X10'3 (140-440); RED BLOOD COUNT 2.59 X10'6 (4.70-6.10); WHITE BLOOD COUNT 12.3 X10'3 (4.5-11.0)
[2022-02-28] MEDS: carVEDilol 3.125mg tablet PO SCH ×2 (08:26→19:40)
[2022-02-28] MEDS: amLODIPine 5mg tablet PO SCH (08:26)
[2022-02-28] MEDS: isosorbide mononitrate 30mg tab.SR.24H PO SCH (08:26)
[2022-02-28] MEDS: apixaban 5mg tablet PO SCH ×2 (08:27→19:39)
[2022-02-28] MEDS: atorvastatin 20mg tablet PO SCH (08:27)
[2022-02-28] MEDS: sertraline 50mg tablet PO SCH (08:27)
[2022-02-28] MEDS: clonazePAM 1mg tablet PO SCH (08:27)
[2022-02-28] MEDS: docusate sod 100mg capsule PO SCH ×2 (08:27→19:39)
[2022-02-28] MEDS: furosemide 40mg/4ml inj IV SCH ×2 (08:28→19:43)
[2022-02-28] MEDS: levoTHYROXINE 75mcg tablet PO SCH (08:28)
[2022-02-28] MEDS: pantoprazole 40mg Tablet.DR PO SCH ×2 (08:28→19:40)
[2022-02-28] MEDS: aspirin 81mg, enteric-coated 1 TAB TABLET.DR PO SCH (08:28)
[2022-02-28] MEDS: ranolazine 500mg SR tablet (Q12H) PO SCH ×2 (08:28→19:40)
[2022-02-28] MEDS: duloxetine 30mg CAPSULE.DR PO SCH (08:28)
[2022-02-28 08:40] LABS: ALANINE AMINOTRANSFERASE 15 U/L (12-78); ALBUMIN/GLOBULIN RATIO 0.5 (1.1-1.5); ALKALINE PHOSPHATASE 101 IU/L (46-116); ANION GAP 2 (8-16); ASPARTATE AMINO TRANSFERASE 23 U/L (10-37); BILIRUBIN,TOTAL 0.8 MG/DL (0.1-1.0); BLOOD UREA NITROGEN 17 MG/DL (7-18); BUN/CREATININE RATIO 29.3 (5.4-32.0); CALCIUM 8.4 MG/DL (8.5-10.1); CHLORIDE 95 MMOL/L (99-107); CREATININE 0.58 MG/DL (0.60-1.10); GLUCOSE 102 MG/DL (70-104); MAGNESIUM 1.6 MG/DL (1.5-2.4); POTASSIUM 3.8 MMOL/L (3.5-5.1); SODIUM 136 MMOL/L (135-145); TOTAL CARBON DIOXIDE 39.3 MMOL/L (24-32); TOTAL PROTEIN 6.3 G/DL (6.4-8.2); eGFR > 90 ML/MIN
[2022-02-28] MEDS: finasteride 5mg tablet PO SCH (09:50)
[2022-02-28 10:01] LABS: TOTAL CELLS COUNTED 100
[2022-02-28 10:03] LABS: ANISOCYTOSIS 3+; ELLIPTOCYTES FEW; HYPOCHROMASIA 1+; PLATELET ESTIMATE DECREASED; POLYCHROMASIA FEW; STOMATOCYTES 1+; TEAR DROP CELLS 1+
[2022-02-28] MEDS: morphine 4 MG/ML inj SYRINge IV PRN ×2 (13:39→22:48)
--- NOTE | 2022-02-28 14:12 | NUR ---
[phone] MESSAGE: janis Akers RN RE: Lefty Neal RM# [id number] nasal swab + MRSA; Pt w/ Hx of MRSA ... message sent via online messaging system immediately prior to this entry
[2022-02-28 18:00] VITALS: BP 124/66
[2022-02-28 19:37] VITALS: BP 120/62
[2022-02-28] MEDS: clonazePAM 0.5mg tablet PO SCH (19:42)
[2022-02-28] MEDS: zolpidem 5mg tablet PO SCH (22:41)
[2022-02-28 22:45] VITALS: BP 126/63
[2022-02-28 23:00] VITALS: BP 125/63
[2022-03-01] MEDS: piperacillin/tazo 3.375gm/50ml 50 ML IV SCH ×2 (00:50→08:56)
[2022-03-01 02:00] VITALS: BP 125/63
[2022-03-01 06:00] VITALS: BP 139/82
--- NOTE | 2022-03-01 06:37 | NUR ---
Problems reprioritized. Patient report given, PATRICIA Hraley, questions answered & plan of care reviewed with .
[2022-03-01 06:42] LABS: BASOPHILS % (AUTO) 0.4 % (0-1); EOSINOPHILS % (AUTO) 0.5 % (0-6); HEMATOCRIT 24.1 % (42.0-52.0); HEMOGLOBIN 7.7 g/dl (14.0-17.9); LYMPHOCYTES # (AUTO) 0.7 X10'3 (1.1-4.8); LYMPHOCYTES % (AUTO) 5.4 % (21-51); MEAN CORPUSCULAR HGB CONC 31.8 g/dL (33.0-36.5); MEAN CORPUSCULAR VOLUME 94.4 FL (78-98); MEAN PLATELET VOLUME 8.3 FL (7.4-10.4); MONOCYTES % (AUTO) 3.7 % (2-12); NEUTROPHILS # (AUTO) 10.8 X10'3 (1.8-7.7); PLATELET COUNT 151 X10'3 (140-440); RED BLOOD COUNT 2.55 X10'6 (4.70-6.10); RED CELL DISTRIBUTION WIDTH 22.6 % (11.5-14.5)
[2022-03-01 06:43] LABS: EOSINOPHILS # (AUTO) 0.1 X10'3 (0-0.9); MONOCYTES # (AUTO) 0.4 X10'3 (0-0.9)
[2022-03-01 06:53] LABS: ALANINE AMINOTRANSFERASE 15 U/L (12-78); ALBUMIN 1.9 G/DL (3.4-5.0); ALBUMIN/GLOBULIN RATIO 0.4 (1.1-1.5); ALKALINE PHOSPHATASE 88 IU/L (46-116); ANION GAP -1 (8-16); ASPARTATE AMINO TRANSFERASE 21 U/L (10-37); BILIRUBIN,TOTAL 0.6 MG/DL (0.1-1.0); BLOOD UREA NITROGEN 16 MG/DL (7-18); BUN/CREATININE RATIO 23.5 (5.4-32.0); CALCIUM 8.2 MG/DL (8.5-10.1); CHLORIDE 95 MMOL/L (99-107); CREATININE 0.68 MG/DL (0.60-1.10); GLUCOSE 118 MG/DL (70-104); MAGNESIUM 1.7 MG/DL (1.5-2.4); POTASSIUM 3.8 MMOL/L (3.5-5.1); SODIUM 134 MMOL/L (135-145); TOTAL CARBON DIOXIDE 39.9 MMOL/L (24-32); TOTAL PROTEIN 6.3 G/DL (6.4-8.2); eGFR > 90 ML/MIN
[2022-03-01] MEDS: ipratropium/albuterol 3ml nebule NEB SCH ×3 (07:19→15:33)
--- NOTE | 2022-03-01 07:23 | NUR ---
Pt lethargic awakens and arouse to name , found on 5lpm NC, titrate to 3lpm NC, SP02 order keep sp02 88-90%, RN notified and aware.
[2022-03-01] MEDS: K and/or MAG REPLACEMENT MC SCH (07:38)
[2022-03-01 08:44] LABS: ANISOCYTOSIS 3+; NUCLEATED RED BLOOD CELLS 3 /100WBC (0-0); PLATELET ESTIMATE NORMAL; TOTAL CELLS COUNTED 100
[2022-03-01 08:45] LABS: ELLIPTOCYTES FEW; STOMATOCYTES 1+; TEAR DROP CELLS FEW
[2022-03-01] MEDS: levoTHYROXINE 75mcg tablet PO SCH (08:54)
[2022-03-01] MEDS: pantoprazole 40mg Tablet.DR PO SCH (08:54)
[2022-03-01] MEDS: sertraline 50mg tablet PO SCH (08:54)
[2022-03-01] MEDS: allopurinol 100mg tablet PO SCH (08:54)
[2022-03-01] MEDS: ranolazine 500mg SR tablet (Q12H) PO SCH (08:54)
[2022-03-01] MEDS: finasteride 5mg tablet PO SCH (08:54)
[2022-03-01] MEDS: apixaban 5mg tablet PO SCH (08:55)
[2022-03-01] MEDS: docusate sod 100mg capsule PO SCH (08:55)
[2022-03-01] MEDS: carVEDilol 3.125mg tablet PO SCH (08:55)
[2022-03-01] MEDS: duloxetine 30mg CAPSULE.DR PO SCH (08:55)
[2022-03-01] MEDS: clonazePAM 0.5mg tablet PO SCH (08:55)
[2022-03-01] MEDS: isosorbide mononitrate 30mg tab.SR.24H PO SCH (08:55)
[2022-03-01] MEDS: atorvastatin 20mg tablet PO SCH (08:55)
[2022-03-01] MEDS: aspirin 81mg, enteric-coated 1 TAB TABLET.DR PO SCH (08:55)
[2022-03-01] MEDS: amLODIPine 5mg tablet PO SCH (08:55)
[2022-03-01] MEDS: furosemide 40mg/4ml inj IV SCH (08:56)
[2022-03-01 11:00] VITALS: BP 129/63
[2022-03-01] MEDS: morphine 4 MG/ML inj SYRINge IV PRN (12:11)
== END 2022-03-01 17:14 | disposition home health service (06) | DRG 871 ==
LOC: ER 11:48 → ED HOLD 17:16 → PCU 3S 02-27 00:05
PROVIDERS: ADMIT Family Medicine; ATTEND Family Medicine
PROC: 5A09457 Assistance with Respiratory Ventilation, 24-96 Consecutive Hours, Continuous Positive Airway Pressure (ICD-10-PCS; principal; 2022-02-26)
DX: A41.9 Sepsis, unspecified organism (principal); J69.0 Pneumonitis due to inhalation of food and vomit; J96.21 Acute and chronic respiratory failure with hypoxia; I50.33 Acute on chronic diastolic (congestive) heart failure; J96.22 Acute and chronic respiratory failure with hypercapnia; F11.20 Opioid dependence, uncomplicated; I48.92 Unspecified atrial flutter; I48.91 Unspecified atrial fibrillation; I27.20 Pulmonary hypertension, unspecified; D64.9 Anemia, unspecified; E03.9 Hypothyroidism, unspecified; E66.01 Morbid (severe) obesity due to excess calories; E78.00 Pure hypercholesterolemia, unspecified; E78.5 Hyperlipidemia, unspecified; F32.A Depression, unspecified; M19.90 Unspecified osteoarthritis, unspecified site; F41.1 Generalized anxiety disorder; Z20.822 Contact with and (suspected) exposure to COVID-19; G89.4 Chronic pain syndrome; J44.9 Chronic obstructive pulmonary disease, unspecified; I25.10 Atherosclerotic heart disease of native coronary artery without angina pectoris; I25.2 Old myocardial infarction; Z86.73 Personal history of transient ischemic attack (TIA), and cerebral infarction without residual deficits; Z95.1 Presence of aortocoronary bypass graft; Z76.5 Malingerer [conscious simulation]; Z87.442 Personal history of urinary calculi; Z99.81 Dependence on supplemental oxygen; Z79.899 Other long term (current) drug therapy; Z68.39 Body mass index [BMI] 39.0-39.9, adult
CPT/HCPCS: 36415; 36600; 71045; 80053; 81001; 82140; 82803; 82948; 83605; 83735; 83880; 84132; 84145; 84484; 85007; 85018; 85025; 87040; 87081; 87635; 93005; 94640; 94760; 96365; 96368; 96375; 97161; 97535; 99285; G0378; J1940; J2270; J2543; J3370; J7030